=== PATIENT | female | born 1955 | race Caucasian/White ===

== ENCOUNTER 2020-04-27 10:10 | Emergency (ER) | payer MEDICARE, SELFPAY ==
--- NOTE | ~2020-04-27 | XR_ITS ---
EXAMINATION: XR abdomen/kub 1V DATE: 04/27/2020 11:16 INDICATION: Right flank pain. TECHNIQUE: A supine view of the abdomen on 2 radiographs was obtained. COMPARISON: CT abdomen and pelvis 10/28/2015 FINDINGS: There are no dilated loops of bowel. Surgical clips in the right upper quadrant are likely from cholecystectomy. Calcifications in the pelvis are likely phleboliths. IMPRESSION: 1. No visible urolithiasis. Reviewed, dictated and finalized at location B. TION ECONOMIST IMPRESSION: 1. No visible urolithiasis.
[2020-04-27 10:32] VITALS: BP 150/72; PULSE 70; RESP 16; TEMP 36.3; O2SAT 100
--- NOTE | 2020-04-27 10:53 | ED.GENADULT ---
HPI - General Adult General Chief complaint: Urogenital-Female Stated complaint: Back pain Time Seen by Provider: 04/27/20 10:54 Source: patient and RN notes reviewed Mode of arrival: ambulatory Limitations: no limitations History of Present Illness HPI narrative: 64-year-old female presents with concern for left flank pain. Reports pain started approximately 1 week ago. She denies visible hematuria, reports her urologist told her she always has slight hematuria. She denies urgency, dysuria. Reports baseline urinary frequency. Reports pain is intermittent, and not elicited by any certain activity or position. Reports at its worst the pain is a 7/10. Denies nausea and vomiting, fever, abdominal pain. Reports she took ibuprofen yesterday with no relief to flank pain. Patient also reports left shoulder pain without injury or trauma, she denies chest pain, cough, shortness of breath MD complaint: flank pain Related Data Home Medications Medication Instructions Recorded Confirmed atorvastatin 40 mg PO DAILY 04/27/20 04/27/20 estradiol 1 patch TRANSDERMAL WEEKLY 04/27/20 04/27/20 levothyroxine 112 mcg PO DAILY 04/27/20 04/27/20 omeprazole 20 mg PO DAILY 04/27/20 04/27/20 Allergies Allergy/AdvReac Type Severity Reaction Status Date / Time Penicillins Allergy Unknown Anxiety Verified 04/27/20 10:41 NITROFURANTOIN MACROCRYSTAL Allergy Unknown Rash Uncoded 04/27/20 10:41 Review of Systems Review of Systems: Narrative: CONSTITUTIONAL: Denies malaise, chills, sweats, or fever. CARDIOVASCULAR: Denies chest pain, palpitations, or edema. RESPIRATORY: Denies cough or dyspnea. GASTROINTESTINAL: Denies abdominal pain, nausea, vomiting, diarrhea, bloody, or mucous stools. GENITOURINARY: Denies dysuria urgency, or hematuria. Reports urine frequency at baseline SKIN: Denies bruising, redness MUSCULOSKELETAL: Reports flank pain, denies other back pain. Denies myalgia. Reports left shoulder pain NEUROLOGIC: Denies numbness, weakness, or headache. All systems reviewed & are unremarkable except as noted in HPI and below PMFSH Comments At time of signature, agree with nursing past medical, surgical, social and family history. There is no relevant family history pertinent to the presenting complaint Exam Narrative: Exam Narrative: GENERAL: Well-appearing, well-nourished, and in no acute distress. HEAD: Normocephalic, atraumatic. EYES: PERRLA and EOMI. NECK: Supple. No lymphadenopathy. CHEST: Clear to auscultation. No respiratory distress. HEART: Regular rate and rhythm. Distal pulses palpable and equal, cap refill <3 seconds ABDOMEN: Soft, nontender, nondistended, normal active bowel sounds, no palpable or pulsatile masses. No CVA tenderness MUSCULOSKELETAL: Normal range of motion and strength in all extremities; 5/5 strength with hip flexion and extension, dorsiflexion and extension, knee flexion and extension, plantar flexion and extension. Normal sensation in dermatomal distributions with sensitivity to light touch and pain. No midline back tenderness to palpation. No paraspinal tenderness. Transfers from lying to sitting to standing. SKIN: Warm, dry, no rash. No ecchymosis, erythema, open wounds to back. NEURO: No focal deficits. Alert and oriented x3. Reflexes intact. Normal gait. PSYCH: Normal mood and affect Course Course Emergency Course: Instructed patient's primary care provider regarding facilitating reevaluation patient's symptoms. Patient is aware of diagnosis, understands and agrees to treatment plan. Anticipatory guidance given. Patient agrees to follow-up as directed and is aware of reasons to seek care at the emergency department. Portions of this record may have been created with voice recognition software Vital Signs Vital signs: Vital Signs Temperature 97.3 F L 04/27/20 10:32 Pulse Rate 70 04/27/20 10:32 Respiratory Rate 16 04/27/20 10:32 Blood Pressure 150/72 H 04/27/20 10:32 Pulse Oximetry 100 04/27
--- NOTE | 2020-04-27 11:03 | ECG_ITS ---
Measurements Intervals [place] Rate: 63 P: 39 IN: 224 QRS: 52 QRSD: 89 T: 35 QT: 389 QTc: 398 Interpretive Statements SINUS RHYTHM WITH FIRST DEGREE AV BLOCK VENTRICULAR PREMATURE COMPLEX BASELINE ARTIFACT- V5 ABNORMAL ECG Electronically Signed On 04-27-2020 12:19:36 COMM[employer]ITY [employer]ICE [employer]ATION DIRECTOR by Nam Jenkins D.O.
--- NOTE | 2020-04-27 11:17 | PC.NURSE ---
NO URINE CULTURE PER PROVIDER.
== END 2020-04-27 12:05 | disposition home or self-care (01) ==
PROVIDERS: Emergency Provider Nurse Practitioner; PCP Family Medicine
DX: R10.9 Unspecified abdominal pain (principal); E78.00 Pure hypercholesterolemia, unspecified; K21.9 Gastro-esophageal reflux disease without esophagitis; E03.9 Hypothyroidism, unspecified; I44.0 Atrioventricular block, first degree
CPT/HCPCS: 74018; 81003; 93005; 99203; G0463

== ENCOUNTER 2020-10-14 11:57 | Emergency (ER) | payer MEDICARE, SELFPAY ==
--- NOTE | ~2020-10-14 | XR_ITS ---
EXAMINATION: XR ankle LT min 3V DATE: 10/14/2020 12:35 INDICATION: Left ankle pain and swelling. Injury. TECHNIQUE: 4 views of left ankle were obtained. COMPARISON: None. FINDINGS: Bone alignment is normal. There are small fragments of ossification distal to medial and la teral malleoli. There is mild osteoarthritis of talonavicular joint. There are enthesophytes at the p osterior and plantar aspects of calcaneal tuberosity. IMPRESSION: 1. Small fragments of ossification distal to medial and lateral malleoli, most likely chronic. Acute avulsion fracture cannot be excluded. Reviewed, dictated and finalized at location B.
--- NOTE | ~2020-10-14 | XR_ITS ---
EXAMINATION: XR hand LT min 3V DATE: 10/14/2020 12:35 INDICATION: Left hand injury and pain and swelling. TECHNIQUE: 3 views of left hand were obtained. COMPARISON: None. FINDINGS: Bone alignment is normal. No fracture. There is mild osteoarthritis of triscaphe joint, fir st carpometacarpal joint, first metacarpophalangeal joint, and some of the interphalangeal joints. IMPRESSION: 1. Mild polyarticular osteoarthritis. Reviewed, dictated and finalized at location B.
[2020-10-14 12:08] VITALS: BP 150/73; PULSE 65; RESP 20; TEMP 37.2; O2SAT 99
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
== END 2020-10-14 13:34 | disposition home or self-care (01) ==
PROVIDERS: Emergency Provider Nurse Practitioner Family; PCP Family Medicine
DX: S82.892A Other fracture of left lower leg, initial encounter for closed fracture (principal); M79.642 Pain in left hand; S80.212A Abrasion, left knee, initial encounter; W18.09XA Striking against other object with subsequent fall, initial encounter; E78.00 Pure hypercholesterolemia, unspecified; K21.9 Gastro-esophageal reflux disease without esophagitis; E03.9 Hypothyroidism, unspecified
CPT/HCPCS: 29515; 73130; 73610; 99214; G0463

== ENCOUNTER 2021-09-24 19:25 | Emergency (ER) | payer MEDICARE, SELFPAY ==
[2021-09-24 19:35] VITALS: BP 146/64; PULSE 71; RESP 16; TEMP 36.8; O2SAT 100
--- NOTE | 2021-09-24 19:55 | ED.GENADULT ---
HPI - General Adult General Chief complaint: Urogenital-Female Stated complaint: bladder infection Source: patient Mode of arrival: ambulatory Limitations: no limitations History of Present Illness HPI narrative: Patient presents for evaluation of foul smell from the vaginal region for the last 4 days. She states that today she developed some suprapubic pain, left-sided low back pain and epigastric pain. She states the pain is a dull ache she rates at 4 out of 10 in severity. She has a history of kidney stones but this does not feel similar. She states a surgeon in [facility] performed hysterectomy, bladder sling and rectal prolapse repair back in 2012. She reports some urinary frequency as of today but denies dysuria, hesitancy, hematuria or urgency. She believes she may have some vaginal discharge although she is not certain. She is not sexually active. No fever, chills, nausea, vomiting. She states that in the past she has experienced vaginal bleeding with speculum exams so her OBGYN advised that she only have pelvic exams performed by her OBGYN specifically. Related Data Home Medications Medication Instructions Recorded Confirmed atorvastatin 40 mg PO DAILY 04/27/20 09/24/21 estradiol 1 patch TRANSDERMAL WEEKLY 04/27/20 09/24/21 levothyroxine 112 mcg PO DAILY 04/27/20 09/24/21 omeprazole 20 mg PO DAILY 04/27/20 09/24/21 Allergies Allergy/AdvReac Type Severity Reaction Status Date / Time Penicillins Allergy Unknown Anxiety Verified 09/24/21 19:28 NITROFURANTOIN MACROCRYSTAL Allergy Unknown Rash Uncoded 04/27/20 10:41 Review of Systems Review of Systems: CONSTITUTIONAL: Denies fever, chills, or sweats. EYES: Denies visual changes, redness, or discharge. ENT: Denies rhinorrhea, congestion, sore throat, or otalgia. CARDIOVASCULAR: Denies chest pain, palpitations, or edema. RESPIRATORY: Denies cough or dyspnea. GASTROINTESTINAL: Reports abdominal pain. Denies nausea, vomiting, or diarrhea GENITOURINARY: Reports vaginal odor, questionable discharge. Reports urinary frequency. Denies hesitancy, dysuria and hematuria SKIN: Denies rash or itching. MUSCULOSKELETAL: Reports left lower back pain. Denies joint pain, or myalgia. NEUROLOGIC: Denies headache, numbness, dizziness, or weakness. PSYCHIATRIC: Denies anxiety or depression. [facility] Past Medical History Medical History (Updated 09/24/21 @ 20:09 by Ladarius Hernandez [facility], ) Cardiac arrhythmia GERD (gastroesophageal reflux disease) Hyperlipidemia Hypothyroid Rectal prolapse Surgical History Surgical History H/O bladder repair surgery H/O: hysterectomy Family History Family History Mother Family history non-contributory Social History Social History Smoking status: Never smoker Alcohol intake: never Substance use: never Living arrangements: with family Gender identity (if verbalized by the patient): Female Sexual Orientation (if Verbalized by the Patient): Straight or Heterosexual Spiritual care concerns: No Exam Narrative: GENERAL: Well-appearing, well-nourished, and in no acute distress. HEAD: Normocephalic, atraumatic. EYES: PERRLA and EOMI. ENT: Nares clear, no rhinorrhea or epistaxis. Mucous membranes moist. Oropharynx without tonsillar hypertrophy exudate or other lesions. Bilateral TMs pearly de paz nonbulging NECK: Supple. No adenopathy or masses. No carotid bruits or JVD CHEST: Clear to auscultation. No respiratory distress. No wheezes rales or rhonchi HEART: Regular rate and rhythm. No murmur heard. Normal peripheral pulses. ABDOMEN: Soft, nontender, nondistended, normal active bowel sounds. EXTREMITIES: Normal range of motion. No edema. BACK: No CVA tenderness GENITAL: No external genital lesions. Small amount of clear vaginal discharge. Declined
== END 2021-09-24 20:07 | disposition home or self-care (01) ==
PROVIDERS: Emergency Provider Nurse Practitioner
DX: N76.0 Acute vaginitis (principal); R31.29 Other microscopic hematuria; R10.84 Generalized abdominal pain; E03.9 Hypothyroidism, unspecified; E78.5 Hyperlipidemia, unspecified
CPT/HCPCS: 81003; 87070; 99213; G0463

== ENCOUNTER 2025-02-17 12:24 | Outpatient (CLI) | payer MEDICARE, SELFPAY ==
--- OUTSIDE RECORDS SUMMARY | 2025-02-17 12:27 | XMS_ITS | Clinical Summary ---
Author Organization [facility] Address [address] [place] [address] Phone Care Team Providers Care Retoucher Photoengraving Name Role Phone Roberto Herzog MD Primary Care Provider [phone] Nora Ocampo MD Unavailable Allergies Active Allergy Reactions Criticality Noted Date Comments Nitrofurantoin Macrocrystal Rash 09/22/19 19 Penicillins Shortness of Breath 09/21/2018 Medications diphenhydrAMINE HCl (BENADRYL PO) Take by mouth. Activ e Cetirizine HCl (ZYRTEC PO) Take by mouth. Act liz OMEPRAZOLE PO Take by mouth. A ctive LEVOTHYROXINE SODIUM PO Take by mouth. Activ e ATORVASTATIN CALCIUM PO Take by mouth. Acti ve estradiol (VIVELLE-DOT) 0.0375 MG/24HR PATCH BIWEEKLY 0.0375 mg by Transdermal route twice a week. 3 Active citalopram (CeleXA) 10 MG Tablet Take 10 mg by mouth daily. Active Glucose Blood (OneTouch Verio) Strip Test blood glucose 1x daily. E16.2 100 Each 3 4 Active Blood Glucose Monitoring Suppl (OneTouch Verio) w/Device KitIndications: Hypoglycemia,Ty pe 2 diabetes mellitus with other circulatory complication, without long-term current use of insulin Use to check blood glucose 2x daily. 1 Kit 4 Active Glucose Blood (OneTouch Ultra) StripIndication s:Hypoglycemia, Type 2 diabetes mellitus with other circulatory complication, without long-term current use of insulin Test blood glucose 1x daily, E11.59, non-insulin dependent 100 Each 3 4 Active doxycycline hyclate (VIBRAMYCIN) 100 MG Capsule Take 100 mg by mouth. 5 Active Tirzepatide (Mounjaro) 2.5 MG/0.5ML Solution Auto-injector 2.5 mg by Subcutaneous route once a week. 2 mL 5 Active Glucose Blood (Contour Plus Test) StripIndication s:Type 2 diabetes mellitus with other circulatory complication, without long-term current use of insulin Test blood glucose 1x daily. E11.59, non-insulin dependent 100 Strip 3 5 Active Blood Glucose Monitoring Suppl (Accu-Chek Guide) w/Device Kit 1 Kit by Does not apply route daily. Test blood glucose 1x daily. E16.2, non-insulin dependent 1 Kit 5 Active Glucose Blood (Accu-Chek Guide Test) Strip Test blood glucose 1x daily. E16.2, non-insulin dependent 100 Strip 3 5 Active Accu-Chek FastClix Lancets Misc 1 Lancet . by Does not apply route daily. Test blood glucose daily E16.2, non-insulin dependent 100 Lancet . 3 5 Active Encounters Date Type Department Care Team Description 11/26/2024 Refill [facility] - Endocrinology [facility] ([facility]3] [address] [place] [address] Nora Ocampo MD Medication Refill from Last 3 Months Social History Tobacco Use Types Packs/Day Years Used Date Smoking Tobacco: Never Smokeless Tobacco: Never Tobacco Cessation:Counseling Given: Not Answered Comments No Sex and Gender Information Value Date Recorded Sex Assigned at Not on file Legal Sex Female 11:51 PM CDT Gender Identity Not on file Sexual Orientation Not on file Last Filed Vital Signs Vital Sign Reading Time Taken Comments Blood Pressure 124/76 11/04/2024 2:51 PM CDT Pulse 65 11/04/2024 2:51 PM CDT Temperature 36.6 C (97.9 F) 11/04/2024 2:51 PM CDT Respiratory Rate 22 11/04/2024 2:51 PM CDT Oxygen Saturation 98% 11/04/2024 2:51 PM CDT Inhaled Oxygen Concentration - - Weight 102.7 kg (226 lb 6.4 oz) 11/04/2024 2:51 PM CDT Height 162.6 cm (5' 4) 11/04/2024 2:51 PM CDT Body Mass Index 38.86 11/04/2024 2:51 PM CDT Plan of Treatment Health Maintenance Due Date Last Done Comments Hepatitis C Virus (HCV) Screening 1955 Pneumococcal Immunization (50+ years) (1 of 2 - PCV) 1972 Cologuard 1998 Immunochemical Fecal Occult Blood 1998 Zoster Immunization (1 of 2) 11/01/2003 Medicare Initial AWV G0438 10/20/2019 Influenza Immunization (#1) 2025 SARS-COV-2 Immunization (3 - season) 2025 10/26/2020, 10/05/2020 DEXA Bone Density 03/15/2025 03/15/2023, 02/01/2021 Mammogram 08/09/2025 08/09/2024, 01/0 07/2023, 03/15/2023, Additional history exists Respiratory Syncytial Virus (RSV) Immunization (Adult) (1 - 1-dose 75+ series) 2028 Colonoscopy 03/29/2032 03/29/2022 Colorectal Cancer Screening 03/29/2032 DTaP/Tdap/Td Immunization Discontinued 09/14/2023, 02/2017 TdaP Immunization Completed 09/14/2023, 08/28/2016 Hepatitis B Immunization Aged Out No longer eligible based on patient's age to complete this topic Human Papillomavirus (HPV) Immunization Aged Out No longer eligible based on patient's age to complete this topic Meningococcal Immunization (ACWY) Aged Out No longer eligible based on patient's age to complete this topic Rotavirus Immunization Aged Out No lo nger eligible based on patient's age to complete this topic Insurance MEDICARE [employer] Care Teams Retoucher Photoengraving Relationship Specialty Start Date End Date Roberto Herzog MD [address] [place] [address] PCP - General Internal Medicine 09/21/18 Nora Ocampo MD [address] [id number] Consulting Physician Endocrinology 09/25/23
--- OUTSIDE RECORDS SUMMARY | 2025-02-17 12:27 | XMS_ITS | Encounter Summary ---
Author Organization [facility] Address [address] [place] [address] Phone Care Team Providers Care Ultrasound Specialist Name Role Phone Roberto Herzog MD Primary Care Provider [phone] Nora Ocampo MD Unavailable Reason for Visit * Reason Comments Medication Refill Encounter Details Date Type Department Care Team (Late st Contact Info) Description 11/12/2023 Refill [facility] - [place] [address] [place] [address] Nora Ocampo MD [address] [address] Medication Refill Social History Tobacco Use Types Packs/Day Years Used Date Smoking Tobacco: Never Smokeless Tobacco: Never Comments No Sex and Gender Information Value Date Recorded Sex Assigned at Not on file Legal Sex Female 11:51 PM CDT Gender Identity Not on file Sexual Orientation Not on file documented as of this encounter Miscellaneous Notes * Telephone Encounter - Niecy Sims RN - 11/12/2023 8:40 AM CDT Medication(s) refilled and signed per [facility] Chronic Medication Refill Standing Order for Pediatric and Adult Patients. documented in this encounter Plan of Treatment Not on file documented as of this encounter Visit Diagnoses Diagnosis Hypoglycemia Hypoglycemia, unspecified Type 2 diabetes mellitus with other circulatory complication, without long-term current use of insulin documented in this encounter Care Teams Ultrasound Specialist Relationship Specialty Start Date End Date Roberto Herzog MD [address] [place] [address] PCP - General Internal Medicine 09/21/18 Nora Ocampo MD [address] [phone] Consulting Physician Endocrinology 09/25/23 documented as of this encounter
--- OUTSIDE RECORDS SUMMARY | 2025-02-17 12:27 | XMS_ITS | Clinical Summary ---
Author Organization [facility] Address [address] [place] [address] Care Team Providers Care It Auditor Name Role Phone Star Villalobos MD Primary Care Provider Source Comments [facility],non-owned Affiliates and Associated Physician Practices is amultiple site organization consisting of ambulatory clinics and hospital sitesin [place], [place], [place] and [place]. This disclosure is being madepursuant to the Care Everywhere program and may not contain all information available regarding this patient. Last updated 18.[facility] Allergies Active Allergy Reactions Criticality Noted Date Comments Erythromycin GI Discomfort,Other 02/10/2009 GI Nitrofurantoin Rash Medium 01/01/2018 Reaction: Rash Penicillins Anaphylaxis,Shortnes s of Breath High 02/10/2009 Medications * Be aware that medications may not be up to date on this document. Alwaysverify current medications with the patient. levothyroxine (SYNTHROID) 112 MCG tablet TAKE ONE TABLET BY MOUTH ONCE DAILY DIRECTED 7 Active atorvastatin (LIPITOR) 40 MG tablet 6 Active mirabegron ER 24hr (MYRBETRIQ) 25 MG tablet Take 1 tablet by mouth once daily 28 tablet 8 Active PROCTOZONE-HC 2.5 % cream INSERT CREAM INTO THE RECTUM NIGHTLY NEEDED FOR HEMORRHOIDS 30 g 0 Active nystatin/triam cinolone (MYCOLOG) 452586-7.1 UNIT/GM-% ointmentIndica tions:Lichen simplex chronicus Apply to external vulvar tissues twice daily for two weeks, then daily for two weeks. 60 g SEE NOTE 60 g 2 1 Active lancets as needed 1 Active Alcohol Swabs (ALCOHOL WIPES) 70 % as needed 1 Active Blood Glucose Monitoring Suppl (GLUCOCOM BLOOD GLUCOSE MONITOR) MAHSA as needed 1 Active blood glucose (PRECISION QID TEST) test strip as needed 1 Active vitamin D3 (CHOLECALCIFER OL) (10 MCG) 400 UNIT tablet Take 1 (one) tablet by mouth once daily Active fluticasone propionate (FLONASE) 50 MCG/ACT nasal spray as needed 2 Active hydrocortisone (HYTONE) 2.5 % cream as needed 1 Active senna-docusate (SENOKOT-S) 8.6-50 MG tablet Take 1 (one) tablet to 2 (two) tablets by mouth once daily as needed 2 Active nystatin (MYCOSTATIN) 855258 UNIT/GM ointmentIndica tions:Skin yeast infection External vulvar tissues twice daily as needed 30 g 1 2 Active nystatin (Mycostatin) 009376 UNIT/GM ointment Apply to affected area 2 times daily 30 g 3 Active acarbose (Precose) 25 MG tablet Take 1 (one) tablet by mouth 3 times daily with meals 3 Active aspirin EC (Ecotrin) 81 MG tablet Take 1 (one) tablet by mouth once daily 30 tablet 11 3 Active Azelastine HCl 137 MCG/SPRAY SOLN USE 1 SPRAY(S) IN EACH NOSTRIL TWICE DAILY DIRECTED 2 Active citalopram (CeleXA) 10 MG tablet Take 1 (one) tablet by mouth once daily 3 Active omeprazole (PriLOSEC) 20 MG capsule Take 1 (one) capsule by mouth 2 times daily 3 Active fezolinetant (Veozah) 45 MG tablet Take 1 (one) tablet by mouth once daily 7 tablet 4 Active ibuprofen (Motrin) 800 MG tablet Take 1 (one) tablet by mouth 3 times daily as needed For pain. 5 Active methocarbamol (Robaxin) 500 MG tablet Take 1 (one) tablet by mouth 3 times daily as needed FOR MUSCLE SPASM 5 Active ondansetron, disintegrating , (Zofran ODT) 4 MG tablet Take 1 (one) tablet by mouth every 8 hours as needed 5 Active predniSONE (Deltasone) 20 MG tablet 5 Active tirzepatide (Mounjaro) 2.5 MG/0.5ML injection Inject 2.5 (two and one-half) mg subcutaneously every 7 days 5 Active triamcinolone acetonide (Kenalog) 0.1 % ointment APPLY OINTMENT TOPICALLY TWICE DAILY 4 Active triamcinolone acetonide (Kenalog) 0.1 % cream 5 Active estradiol (Vivelle-Dot) 0.1 MG/24HR patch Apply 1 (one) patch to skin Two times a week 24 patch 4 5 Active Active Problems Problem Noted Date Diagnosed Date Reactive hypoglycemia 04/27/2021 Overview (08/23/2021): Last Assessment & Plan: - recurring condition, more frequent - having issues after meals with weakness, dizziness and low BG numbers in 60s - referred to nutrition therapy/counseling - established with Endocrinology - no hx of diabetes, is pre-diabetic which is improved - not on any medications - most recent A1c as shown below Lab Results Component Value Date HGBA1C 5.7 07/11/2021 Type 2 diabetes mellitus wit h hypoglycemia without coma, without long-term current use of insulin 12/02/2020 Overview (08/23/2021): Last Assessment & Plan: This is a chronic condition which is at goal. Personally reviewed A1c -5.7, at goal less than 7% Medication- no medications at this times. Monitor blood sugar 3times a week and for episodes of hypoglycemia. She has seen the dietitian and reports improvement with the addition of protein shakes. Reviewed protein sources. Encouraged annual eye exam. last dilated eye exam was Monofilament foot exam completed, protective senses intact, loss of protective senses. Urine microalbumin/creatinine ratio - <30 currently not on edd/arb , at goal <30 Personally reviewed labs: BUN-10, creatinine- 0.75 GFR- 82 Kidney function- normal B/P today- 130/64, currently not on EDD/ARB Goal blood pressure is <140/90 and as close to 120/80 as possible. Personally reviewed LDL -68, currently on atorvastatin. At Goal of less than 70 No history of macrovascular disease - CVA, [place]. Encouraged to eat protein source at each meals. 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 Elizondo from time to time - currently on atorvastatin 40 mg daily - most recent LDL as shown below - recommend that we be more aggressive with LDL goal, reports that she was off her medication while she was on steroids - plan to recheck in 3-4 months Lab Results Component Value Date LDLCALC 169 (H) 09/22/2020 The 10-year ASCVD risk score (Street ARNEL Jr., et al., 2013) is: 9.3% Values used to calculate the score: Age: 65 years Sex: Female Is Non- : No Diabetic: No Tobacco smoker: No Systolic Blood Pressure: 146 mmHg Is BP treated: No HDL Cholesterol: 67 mg/dL Total Cholesterol: 265 mg/dL GERD (gastroesophageal reflux disease) 0 Overview (03/22/2021): Last Assessment & Plan: - follows with Gastroenterology - currently on Omeprazole 20 mg daily for symptom control - increase to Omperazole 20 mg BID for now given abdominal discomfort Essential hypertension 11/25/2019 Overview (03/22/2021): Last Assessment & Plan: - doing well at this time - currently not on medications - never been on medications for this before - continue to monitor with lifestyle control - if she continues to do so well, will remove this problem list from active problems - has risk factors - obesity Deviated nasal septum 07/27/2016 Hay fever 07/27/2016 Hypertrophy of nasal turbinates 07/27/2016 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 Dysphonia 03/29/2016 Hyperlipidemia 02/19/2016 Overview (02/25/2018): Overview: Hyperlipidemia, unspecified hyperlipidemia type Lumbar radiculopathy 02/09/2015 Overview (02/25/2018): Overview: Lumbar radiculopathy Sensorineural hearing loss (SNHL) 09/15/2013 Hypothyroidism 05/21/2006 Overview (02/25/2018): Overview: Hypothyroidism, unspecified type Resolved Problems Problem Noted Date Diagnosed Date Resolved Date Lichen simplex chronicus 09/21/202009/2021 Common cold 08/31/2016 03/22/2021 Overview (02/25/2018): Overview: Acute nasopharyngitis Hemoptysis 07/31/2016 08/23/2021 Overview (02/25/2018): Overview: Hemoptysis Sinusitis 04/06/2016 03/25/2018 Vocal cord dysfunction 03/29/201608/23 Sudden hearing loss 09/18/2013 03/22/20 21 Lichen sclerosus 06/06/2010 09/21/2020 Symptomatic menopausal or fe male climacteric states 06/06/2010 08/23/2021 Encounters Date Type Department Care Team Description 01/01/2025 1:45 PM CDT Office Visit [facility] - MEDICAL OFFICE ADMINISTRATOR [address] [place] [address] Adi Vaughn MD Menopausal symptoms (Primary Dx); Overactive bladder 01/01/2025 Travel from Last 3 Months Immunizations Immunization Administration Dates Next Due TDAP (7yrs+) 08/28/2016 Family History Medical History Relation Name Comments CAD (Coronary Artery Disease) Mother CVA Mother Cancer - Breast Mother Hypertension Mother Relation Name Status Comments Mother Social History Tobacco Use Types Packs/Day Years Used Date Smoking Tobacco: Never Smokeless Tobacco: Never Tobacco Cessation:Counseling Given: Not Answered Alcohol Use Standard Drinks/Week Comments No 0 (1 standard drink = 0.6 oz pur e alcohol) AUDIT-C Answer Date Recorded Q1: How often do you have a drink containing alc ohol? 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 Gender Identity Not on file Sexual Orientation Not on file Last Filed Vital Signs Vital Sign Reading Time Taken Comments Blood Pressure 144/98 01/01/2025 2:08 PM CDT Pulse 70 03/08/2023 3:45 PM CDT Temperature 36.7 C (98 F) 01/01/2025 2:08 PM CDT Respiratory Rate 18 03/08/2023 3:45 PM CDT Oxygen Saturation 95% 03/08/2023 3:45 PM CDT Inhaled Oxygen Concentration - - Weight 102.2 kg (225 lb 3.2 oz) 01/01/2025 2:08 PM CDT Height 160 cm (5' 3) 01/01/2025 2:08 PM CDT Body Mass Index 39.89 01/01/2025 2:08 PM CDT Plan of Treatment Upcoming Encounters Date Type Department Care Team (Late st Contact Info) Description 01/07/2026 1:45 PM CDT Office Visit [facility] - MEDICAL OFFICE ADMINISTRATOR [address] [place] [address] Adi Vaughn MD [address] [address] Health Maintenance Due Date Last Done Comments COLOGUARD (AGES 45-75) - COLON CA SCREENING 1953 CT COLONOGRAPHY - COLON CA SCREENING 1955 FIT - COLON CA SCREENING 1955 FLEX SIG - COLON CA SCREENING 1955 MEDICARE AWV 12 MONTHS 1953 HEPATITIS C SCREENING 10/27/1971 PNEUMOCOCCAL VACCINE 50+ (1 of 2 - PCV) 1972 ZOSTER VACCINE (1 of 2) 11/01/2003 DIABETES RETINOPATHY SCREENING 08/23/2021 DIABETES-FOOT EXAM WITH MONOFILAMENT 08/23/2021 DIABETES - URINE PROTEIN SCREENING 05/21/2024 01/30/2023 COVID-19 VACCINE (3 - season) 2025 10/26/2020, 10/05/2020 INFLUENZA VACCINE (#1) 2025 DIABETES-HGB A1C 05/06/2025 11/04/2024, 09/2023, 02/20/2023, Additional history exists DIABETES-SERUM CREATININE 11/04/20252024, 01/27/2023, 01/27/2023, Additional history exists MAMMOGRAM 08/09/2026 08/09/2024, 07/20, 08/09/2024, Additional history exists DTAP/TDAP/TD VACCINES (2 - Td or Tdap) 08/28/2026 08/28/2016 Respiratory Syncytial Virus (RSV) Vaccine Pt: or over 60 yrs (1 - 1-dose 75+ series) 2028 COLON MONITORING 03/29/2032 03/29/2022 COLONOSCOPY - COLON CA SCREENING 03/29/2032 03/29/2022 Colorectal Cancer Screening 03/29/2032 BONE DENSITY TESTING Completed 03/15/2023, 02/02/20 21 DEPRESSION SCREENING Completed 01/01/2025, 01/03/20 24 HEPATITIS B VACCINE Aged Out No longe r eligible based on patient's age to complete this topic HIB VACCINE Aged Out No longer eligi ble based on patient's age to complete this topic HPV VACCINE Aged Out No longer eligi ble based on patient's age to complete this topic MENINGOCOCCAL (Group B) VACCINE SHARED DECISION-MAKING Aged Out No longer eligible based on patient's age to complete this topic MENINGOCOCCAL GROUPS A/C/Y/W VACCINE Aged Out No longer eligible based on patient's age to complete this topic Procedures Procedure Name Priority Date/Time Associated Diagnosis Comments MAMMOGRAM Routine 08/09/2024 11:22 AM CDT from Last 3 Months or Most Recently Relevant to Health Maintenance Results * MAMMOGRAM (08/09/2024 11:22 AM CDT) Anatomical Region Laterality Modality Other us Historical Provider SCANNING ONLY Final Res ult from Last 3 Months or Most Recently Relevant to Health Maintenance Insurance MEDICARE MEDICARE AETNA Care Teams It Auditor Relationship Specialty Start Date End Date Star Villalobos MD PCP - General 03/22/21
--- OUTSIDE RECORDS SUMMARY | 2025-02-17 12:27 | XMS_ITS | Encounter Summary ---
Author Organization [facility] Address [address] [place] [address] Care Team Providers Care Farmer General Name Role Phone Star Villalobos MD Primary Care Provider Karina Ritter DO Unavailable [phone] Golden Michelle MD Unavailable Humberto Mueller MD Unavailable [phone] Josephine Santos NP Unavailable [phone] Star Villalobos MD Primary Care Provider Trey Rosenberg MD Unavailable [phone] Paulette Zacarias MA Unavailable [phone] Juanis Turcios CMA Unavailable [phone] Star Villalobos MD Primary Care Provider Amado Devi DPM Unavailable [phone] Verna Tamayo MA Unavailable Unavailable Adi Vaughn MD Unavailable [phone] Alivia Thomas MA Unavailable Nora Ocampo MD Unavailable Star Villalobos MD Primary Care Provider Marisabel Matamoros MD Unavailable [phone] Michelle Arce MA Unavailable [phone] Leatha Ramirez RN Unavailable [phone] Encounter Details Date Type Department Care Team (Late st Contact Info) Description 05/18/2021 Documentation [facility] Nutrition and Diabetic Education [address] [place] [address] Daisha Cornelius, RN Social History Tobacco Use Types Packs/Day Years Used Date Smoking Tobacco: Never Smokeless Tobacco: Never Alcohol Use Standard Drinks/Week Comments No 0 (1 standard drink = 0.6 oz pur e alcohol) PHQ-2 Answer Date Recorded PHQ-2 Total Score (If total score is 3 or more points, staff should administer the PHQ-9) 0 04/21/2021 Comments No Sex and Gender Information Value Date Recorded Sex Assigned at Not on file 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 Gender Identity Female 11/05/2022 9:12 PM CDT Sexual Orientation Straight 11/05/2022 9: 12 PM CDT documented as of this encounter Plan of Treatment Not on file documented as of this encounter Visit Diagnoses Not on filedocumented in this encounter Additional Health Concerns Infection Onset Date Last Indicated Resolved Time COVID: Suspected 06/06/2021 06/06/2021 06/06/2021 5:06 PM AUTO TRANSMISSION MECHANIC COVID: Suspected 06/16/2021 06/16/2021 06/16/2021 3:13 PM AUTO TRANSMISSION MECHANIC COVID: Suspected 11/12/2021 11/12/2021 11/12/2021 2:09 PM CDT COVID: Suspected 11/12/2021 11/12/2021 11/12/2021 7:26 PM CDT COVID: Suspected 12/21/2021 12/21/2021 12/21/2021 11:28 AM CDT COVID: Suspected 03/08/2022 03/08/2022 03/08/2022 6:56 PM CDT COVID: Suspected 03/27/2022 03/27/2022 03/27/2022 12:39 PM AUTO TRANSMISSION MECHANIC COVID: Suspected 04/07/2022 04/07/2022 04/07/2022 12:03 PM AUTO TRANSMISSION MECHANIC COVID: Suspected 05/10/2022 05/10/2022 05/10/2022 1:25 PM AUTO TRANSMISSION MECHANIC COVID: Suspected 05/17/2022 05/17/2022 05/17/2022 11:24 AM AUTO TRANSMISSION MECHANIC COVID: Suspected 06/25/2022 06/25/2022 06/25/2022 6:33 PM AUTO TRANSMISSION MECHANIC COVID: Suspected 08/20/2022 08/20/2022 08/20/2022 12:20 PM CDT COVID: Suspected 09/10/2022 09/10/2022 09/10/2022 12:44 PM CDT COVID: Suspected 09/17/2022 09/17/2022 09/17/2022 2:02 PM CDT COVID: Suspected 01/27/2023 01/27/2023 01/27/2023 5:39 PM CDT COVID: Suspected 05/07/2023 05/07/2023 05/07/2023 12:48 PM AUTO TRANSMISSION MECHANIC COVID: Suspected 05/15/2023 05/15/2023 05/15/2023 12:43 PM AUTO TRANSMISSION MECHANIC COVID: Suspected 02/05/2024 02/05/2024 02/05/2024 5:47 PM CDT COVID: Suspected 03/07/2024 03/07/2024 03/08/2024 3:05 AM CDT COVID: Suspected 05/13/2024 05/13/2024 05/13/2024 3:11 PM AUTO TRANSMISSION MECHANIC COVID: Suspected 05/16/2024 05/16/2024 05/16/2024 3:44 PM AUTO TRANSMISSION MECHANIC COVID19 05/16/2024 05/16/2024 05/26/2024 3:07 AM AUTO TRANSMISSION MECHANIC COVID: Recovered Comment:Added based on recent COVID infection. 05/26/2024 05/27/2024 08/24/2024 3:05 AM C DT documented as of this encounter Care Teams Farmer General Relationship Specialty Start Date End Date Star Villalobos MD PCP - General Family Medicine 11/11/20 08/28/22 Star Villalobos MD PCP - General Family Medicine 08/29/22 02/19/23 Star Villalobos MD [address] [place] [address] [address] [place] [address] PCP - General Family Medicine 02/20/23 10/26/24 Star Villalobos MD [address] [place] [address] [facility] [address] [place] [address] PCP - General Family Medicine 10/27/24 Karina Ritter DO [address] [place] [address] [address] [place], [place] [address] Consulting Physician Otolaryngology 07/16/22 Golden Michelle MD [address] [place] [address] [address] [place] [address] Consulting Physician Pulmonary Disease 07/16/22 Humberto Mueller MD [address] [place] [address] [address] [place] [address] Consulting Physician Gastroenterology 07/16/22 Josephine Santos, MÓNICA [address] [place] [address] [address] [place] [address] Nurse Practitioner Endocrinology Diabetes & Metabolism 07/16/22 Trey Rosenberg MD [address] [place] [address] [address] [place] [address] Consulting Physician Endocrinology Diabetes & Metabolism 10/12/22 Paulette Zacarias MA [address] [place] [address] [employer] [facility] Institutional Commodity Analyst 11/27/22 11/27/22 Juanis Turcios CMA [address] [place] [address] [address] [place] [address] ACO Care Institutional Commodity Analyst 01/29/23 01/29/23 Amado Devi DPM [address] [place] [address] Consulting Physician Orthotics 02/20/23 Verna Tamayo MA [address] [place] [address] [address] [place] [address] ACO Care Institutional Commodity Analyst 09/17/23 09/17/23 Adi Vaughn MD [address] [facility] [address] [place] [address] Referring Physician Gynecology 12/03/23 Alivia Thomas MA [address] [place] [address] [address] [place] [address] ACO Care Institutional Commodity Analyst 06/19/24 06/19/24 Nora Ocampo MD [address] [facility] [address] [place] [address] Referring Physician General Surgery 10/21/24 Marisabel Matamoros MD [address] [place] [address] Referring Physician Dermatology 12/02/24 Michelle Arce MA [address] [place] [address] [address] [place] [address] ACO Care Institutional Commodity Analyst 12/04/24 12/04/24 Leatha Ramirez, RN [address] [facility] [facility] [address] [place] [address] Acute Care Certified Nursing Assistant 01/29/25 [facility] 02/20/23 documented as of this encounter
--- OUTSIDE RECORDS SUMMARY | 2025-02-17 12:27 | XMS_ITS | Clinical Summary ---
Author Organization [facility] Address [address] [place] [address] Care Team Providers Care Meter Reading Clerk Name Role Phone Karina Ritter Unavailable [phone] Golden Michelle MD Unavailable Humberto Mueller MD Unavailable [phone] Josephine Santos NP Unavailable [phone] Trey Rosenberg MD Unavailable [phone] Amado Devi DPM Unavailable [phone] Adi Vaughn MD Unavailable [phone] Nora Ocampo MD Unavailable Star Villalobos MD Primary Care Provider Marisabel Matamoros MD Unavailable [phone] Leatha Ramirez RN Unavailable Allergies Active Allergy Reactions Criticality Noted Date Comments Nitrofurantoin Other (See comments),Rash Medium 01/01/2018 Reaction: Rash, , , , , , , , Reaction: Rash, , , , , , , , Penicillins Rash,Anaphylaxis,Stephanie rtne ss of breath High 02/10/2009 Medications estradioL (VIVELLE-DOT) 0.1 mg/24 hr APPLY 1 PATCH TOPICALLY TO SKIN TWICE A WEEK 01/28/20 21 Active alcohol swabs pads, medicatedIndicati ons:Prediabetes Test daily before all meals/snacks and once before bedtime. 100 each 3 02/08/20 21 Active blood-glucose meter miscIndications:L ightheadedness Use twice (2 times) daily before breakfast and at bedtime. 1 each 02/16/20 21 Active fluticasone propionate (FLONASE) 50 mcg/actuation nasal spray 2 sprays 2 (two) times a day as needed 10/31/19 23 Active azelastine (ASTELIN) 137 mcg (0.1 %) nasal sprayIndications: Chronic non-seasonal allergic rhinitis Administer 1 spray into each nostril 2 (two) times a day Use in each nostril as directed 30 mL 11 03/23/20 23 Active Additional Information Patient taking differently:1 spray each nostril2 times daily PRN, rhinitis, Use in each nostril as directed, Reported on 02/04/2025 atorvastatin (LIPITOR) 40 mg tabletIndications :Mixed hyperlipidemia Take 1 tablet (40 mg total) by mouth daily 100 tablet 1 09/26/19 25 Active levothyroxine (SYNTHROID) 112 mcg tabletIndications :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 Take 1 tablet (112 mcg total) by mouth daily 100 tablet 1 09/26/19 25 Active citalopram (CeleXA) 10 mg tabletIndications :IRISH (generalized anxiety disorder) Take 1 tablet (10 mg total) by mouth daily 90 tablet 3 01/03/20 25 Active blood glucose diagnostic (glucose blood) stripIndications: Type 2 diabetes mellitus with hypoglycemia without coma, without long-term current use of insulin (HCC) Use to test blood sugar once daily - relion premier test strips 100 each 1 12/06/19 25 026 Active aspirin 81 mg enteric coated tablet Take 1 tablet (81 mg total) by mouth daily Active pantoprazole DR (PROTONIX) 40 mg EC tabletIndications :Mucositis Prophylaxis Take 1 tablet (40 mg total) by mouth daily 30 tablet 2 01/29/20 25 025 Active aspirin 81 mg enteric coated tabletIndications :cerebral ischemia Take 1 tablet (81 mg total) by mouth daily 30 tablet 11 11/26/19 23 025 Discontin ued(Stop Taking at Discharge ) triamcinolone (KENALOG) 0.1 % cream 08/22/19 25 025 Discontin ued(Stop Taking at Discharge ) omeprazole (PriLOSEC) 20 mg capsuleIndication s:Gastroesophagea l reflux disease, unspecified whether esophagitis present Take 1 capsule (20 mg total) by mouth 2 (two) times a day 200 capsule 1 09/26/19 25 025 Discontin ued(Stop Taking at Discharge ) ondansetron ODT (ZOFRAN-ODT) 4 mg disintegrating tablet Take 1 tablet (4 mg total) by mouth every 8 (eight) hours as needed for nausea Collaborating physician Robbin Frances MD 20 tablet 12/04/19 025 Discontin ued(Stop Taking at Discharge ) Active Problems Problem Noted Date Diagnosed Date Myofascial pain syndrome of thoracic spine 02/04 Assessment & Plan (02/04/2025 3:52 PM CDT): Muscle spasm of mid back/abdominal wall Intermittent muscle spasms in the mid back, likely musculoskeletal. Painful but not constant. No specific trigger identified, but activities like bending over may exacerbate symptoms. - Consider deep massage or foster care worker for relief - Can do trigger point injections if needed Epigastric pain 01/27/2025 Assessment & Plan (02/04/2025 3:52 PM CDT): Epigastric pain and bloating Intermittent epigastric pain and bloating, likely related to chronic gastritis. Symptoms have improved but persist intermittently. No nausea or vomiting reported. Bloating may be alleviated with dietary adjustments and [id number] medications. - Continue pantoprazole 40 mg once daily - Use Beano or Gas-X for bloating - Consider doubling pantoprazole dose for one to two weeks if symptoms worsen - Use Mylanta or Tums for additional symptom relief if needed - Has follow-up with Gastroenterology set up in few weeks EGD 01/28/2025 Impression: - Normal esophagus. - Erythematous mucosa in the antrum and prepyloric region of the stomach. Biopsied. - Multiple fundic gland gastric polyps. - Normal examined duodenum. Recommendation: - [facility]. - Resume previous diet. - No ibuprofen, naproxen, or other non-steroidal anti-inflammatory drugs. - Use Protonix (pantoprazole) 40 mg PO daily for 3 months. - Await pathology results. Pathology from EGD 01/2025 Gastric, biopsy: - Gastric tissue with minimal chronic inactive inflammation, reactive/regenerative alterations, and focal intestinal metaplasia. - Negative for dysplasia or malignancy. - Negative Helicobacter immunostain. Chest pain, unspecified type 01/25/2025 Assessment & Plan (02/04/2025 3:52 PM CDT): - Recent hospitalization for chest pain, epigastric pain and had workup including a stress testing which was found to be abnormal and then had cardiac catheterization which was unremarkable NM MPI SPECT (REST AND/OR STRESS) MULTIPLE STUDIES 01/2025 IMPRESSION: 1. Abnormal myocardial perfusion study. 2. Reversible 15% anterolateral perfusion defect raises suspicion for ischemia. The remaining 10% is fixed. 3. Normal left ventricular ejection fraction and wall motion. CARDIAC CATHETERIZATION 01/27/2025 SUMMARY OF FINDINGS 1. Largely Normal major vessel coronary anatomy other than a mild single-vessel CAD of the mid LAD. 2. Normal left ventricular systolic function, visually estimated ejection fraction 60-70%. 3. Normal left ventricular filling pressures, LVEDP 5 mm of mercury. Tubular adenoma of colon 11/12/2024 Ptosis of both eyelids 09/04/2024 Assessment & Plan (12/02/2024 9:38 AM CDT): Hereditary eyelid ptosis affecting vision, particularly peripheral vision. Qualified for eyelid surgery, with testing and payment complete. Surgery expected to improve visual field with minimal post-operative pain. - Referred to Dr. Mcghee, an oculoplastic surgeon, for eyelid surgery --> scheduled an appointment 01/2025 Assessment & Plan (09/04/2024 12:23 PM CDT): Hereditary eyelid ptosis affecting vision, particularly peripheral vision. Qualified for eyelid surgery, with testing and payment complete. Surgery expected to improve visual field with minimal post-operative pain. - Refer to Dr. Mcghee, an oculoplastic surgeon, for eyelid surgery. Full code status 12/03/2023 Assessment & Plan (12/03/2023 2:26 PM CDT): Advance Care Planning Advance Care Planning Conversation Pertinent diagnoses: hyperlipidemia, morbid obesity, T2DM The patient and/or family consented to a voluntary Advance Care Planning conversation. Individuals present for the conversation: patient Summary of the conversation: Patient was proceed with CPR, intubation and mechanical ventilation if she has a cardiac arrest Outcome of the conversation and documents completed (select all that apply): CHANGE code status to FULL CODE I spent 7 minutes providing separately identifiable ACP services with the patient and/or surrogate decision maker in a voluntary, in-person conversation discussing the patient's wishes and goals as detailed in the above note. Star Villalobos MD IRISH (generalized anxiety disorder) 03/30/2023 Assessment & Plan (12/02/2024 9:34 AM CDT): - Chronic condition, controlled/stable - lot of anxiety in personal life and personal health - causing distress in her life, discussed symptoms - has helped her with anxiety, and depressed affect - currently on Citalopram 10 mg daily The current medical regimen is effective; continue present plan and medications. 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 Assessment & Plan (12/03/2023 12:39 PM CDT): - Chronic condition, controlled/stable - lot of anxiety in personal life and personal health - causing distress in her life, discussed symptoms - has helped her with anxiety, and depressed affect - currently on Citalopram 10 mg daily - continue current management Assessment & Plan (08/23/2023 2:31 PM CDT): - Chronic condition, controlled/stable - lot of anxiety in personal life and personal health - causing distress in her life, discussed symptoms - has helped her with anxiety, and depressed affect - currently on Citalopram 10 mg daily - continue current management Assessment & Plan (04/23/2023 4:15 PM 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 PROFESSOR): - recent diagnosis, better controlled - lot of anxiety in personal life and personal health - causing distress in her life, discussed symptoms - has helped her with anxiety, and depressed affect - currently on Citalopram 10 mg daily, started on last visit with great results - continue current management, refill provided Assessment & Plan (04/05/2023 1:48 PM 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 PROFESSOR): Improved. Patient states she is noticed a difference since starting citalopram by Dr. Villalobos a few weeks ago. Assessment & Plan (03/30/2023 1:55 PM 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 PROFESSOR): - new diagnosis - lot of anxiety in personal life and personal health - causing distress in her life, discussed symptoms - starting Citalopram 10 mg daily, f/u in 6-8 weeks Chronic non-seasonal allergic rhinitis Assessment & Plan (05/30/2024 6:45 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): -chronic, stable -currently uses azelastine nasal spray -reports worsening of allergies with different environmental factors -Encouraged consistent use of nasal spray -continue current treatment plan Assessment & Plan (03/23/2023 3:43 PM CDT): Personal interpretation: CT Head: sinuses, middle ear and mastoids were clear Nasal saline spray (Simply saline, [employer], [place], [place]) 2 second sprays or 2 squeezes into each nostril while looking down over the sink, do not need to sniff in. Flonase 1 spray, Astelin (azelastine) 1 sprays into each nostril while looking down over the sink, do not sniff in or blow nose after use for at least 30 minutes twice daily 64 ounces of caffeine free and soda free fluid daily History of TIA (transient ischemic attack) 11/25 Assessment & Plan (03/30/2023 1:52 PM 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 PROFESSOR): - recent hospitalization - most symptoms have resolved, reports right side numbness intermittently - reviewed records and work up - MRI done in hospital needs further evaluation - finding as shown below - currently on Aspirin 81 mg daily, already on Atorvastatin 40 mg nightly, has normal blood pressure - s/p the following tests Transthoracic Echo (TTE) With Bubble Study CT of the head without contrast MRI of the brain without contrast VL US Carotids - established with Interventional vascular neurology and has a follow up appointment coming up - MRI BRAIN WO CONTRAST 10/2022 IMPRESSION: 1. Right internal capsule diffusion hyperintensity. The ADC map is nondiagnostic on this open MRI and subsequently request correlation with the patient's clinical presentation and physical examination to exclude a small acute to subacute infarction. 2. The need for repeat MRI on the closed magnet as clinically indicated. 3. Chronic microvascular ischemic type white-matter changes and additional findings as above. Lab Results Component Value Date LDLCALC 90 11/24/2022 Assessment & Plan (11/30/2022 1:45 PM CDT): - recent hospitalization - most symptoms have resolved, reports right side numbness intermittently - reviewed records and work up - MRI done in hospital needs further evaluation - she already has an appointment today with another provider - finding as shown below - started on Aspirin at time of discharge, already on Atorvastatin 40 mg nightly, has normal blood pressure - s/p the following tests Transthoracic Echo (TTE) With Bubble Study CT of the head without contrast MRI of the brain without contrast VL US Carotids - MRI BRAIN WO CONTRAST IMPRESSION: 1. Right internal capsule diffusion hyperintensity. The ADC map is nondiagnostic on this open MRI and subsequently request correlation with the patient's clinical presentation and physical examination to exclude a small acute to subacute infarction. 2. The need for repeat MRI on the closed magnet as clinically indicated. 3. Chronic microvascular ischemic type white-matter changes and additional findings as above. Lab Results Component Value Date LDLCALC 90 11/24/2022 Nausea 09/15/2022 Assessment & Plan (09/15/2022 12:52 PM CDT): -improving -likely due to viral infection -advised patient that she is well enough to have her teeth pulled next week -advised patient to drink plenty of fluids and follow a bland diet if nausea returns Irritable bowel syndrome with constipation 04/19 Overview (01/28/2025): Following with GI EGD 01/2025 Procedure: Upper GI endoscopy Indications: Epigastric abdominal pain Impression: - Normal esophagus. - Erythematous mucosa in the antrum and prepyloric region of the stomach. Biopsied. - Multiple fundic gland gastric polyps. - Normal examined duodenum. Pharyngoesophageal dysphagia 01/10/2022 Cervical spondylosis 10/18/2021 Assessment & Plan (11/09/2022 2:05 PM CDT): - -chronic, not at/near goal -at last visit, referral was placed to Orthopedics rather than orthopedic spinal surgeon. -refer to orthopedic spinal surgeon for further evaluation -continue going to physical therapy -follow up if not improving Assessment & Plan (2022 2:11 PM CDT): -chronic, not improving -refer to orthopedics spinal surgeon for further evaluation -refer to physical therapy to extend number of visits -continue on OTC ibuprofen for pain -patient declines muscle relaxant at this time. -follow up if not improving Assessment & Plan (10/12/2022 4:58 PM CDT): - chronic, improved but not at goal - was seen by orthopedic spine in the past on 09/2019 - has tried NSAIDs in the past - has been doing chiropractor adjustments with limited improvements - XR Cervical spine and MRI of cervical spine as shown below - Past Ortho note - after PT will revisit this issue, if no improvement recommend Cervical MRI followed by ACDF at C5-6 which was recommended by orthopedic spine surgeon in the past - referred to Physical therapy and about to complete session which has helped her - continue current therapy XR Cervical Spine 11/09 1.Unchanged moderate to severe degenerative disc disease at C5-C6 and C6-C7, and mild at C4-C5. 2. No new acute findings are identified in the cervical spine. - MRI Cervical spine WO Contrast 10/2021 - obtained with findings as shown below C2-C3: No significant disc bulge, spinal canal or neural foraminal narrowing. There is right greater than left facet arthropathy. C3-C4: Disc bulge without significant spinal canal stenosis. Uncovertebral spurring and facet arthropathy with mild bilateral neural foraminal narrowing. C4-C5: Posterior disc osteophyte complex without significant spinal canal stenosis. Uncovertebral spurring and facet arthropathy with [id number] right and mild left neural foraminal narrowing. C5-C6: Posterior disc osteophyte complex without significant spinal canal or neural foraminal narrowing. There is bilateral facet arthropathy. C6-C7: Posterior disc osteophyte complex and a superimposed disc protrusion eccentric towards the left neural foramen flattens the left ventral thecal sac. Uncovertebral spurring and facet arthropathy moderate proximal left and no significant right neural foraminal narrowing. C7-T1: No significant disc bulge, spinal canal or neural foraminal narrowing. UPPER THORACIC: Incompletely imaged. No high-grade spinal canal stenosis. Assessment & Plan (07/16/2022 4:59 PM 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 PROFESSOR): - chronic, improved but not at goal - was seen by orthopedic spine in the past on 09/2019 - has tried NSAIDs in the past - has been doing chiropractor adjustments with limited improvements - XR Cervical spine and MRI of cervical spine as shown below - Past Ortho note - after PT will revisit this issue, if no improvement recommend Cervical MRI followed by ACDF at C5-6 which was recommended by orthopedic spine surgeon in the past - referred to Physical therapy (11/09), had COVID and was postponed but was feeling better and did not do, however, with worse symptoms open to doing it, referral placed to physical therapy and has been doing PT 06/2022 with some improvement - continue current therapy XR Cervical Spine 11/09 1.Unchanged moderate to severe degenerative disc disease at C5-C6 and C6-C7, and mild at C4-C5. 2. No new acute findings are identified in the cervical spine. - MRI Cervical spine WO Contrast 10/2021 - obtained with findings as shown below C2-C3: No significant disc bulge, spinal canal or neural foraminal narrowing. There is right greater than left facet arthropathy. C3-C4: Disc bulge without significant spinal canal stenosis. Uncovertebral spurring and facet arthropathy with mild bilateral neural foraminal narrowing. C4-C5: Posterior disc osteophyte complex without significant spinal canal stenosis. Uncovertebral spurring and facet arthropathy with [id number] right and mild left neural foraminal narrowing. C5-C6: Posterior disc osteophyte complex without significant spinal canal or neural foraminal narrowing. There is bilateral facet arthropathy. C6-C7: Posterior disc osteophyte complex and a superimposed disc protrusion eccentric towards the left neural foramen flattens the left ventral thecal sac. Uncovertebral spurring and facet arthropathy moderate proximal left and no significant right neural foraminal narrowing. C7-T1: No significant disc bulge, spinal canal or neural foraminal narrowing. UPPER THORACIC: Incompletely imaged. No high-grade spinal canal stenosis. Assessment & Plan (05/12/2022 10:54 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): - chronic, not at goal - worse - was seen by orthopedic spine in the past on 09/2019 - has tried NSAIDs in the past - has been doing chiropractor adjustments with limited improvements - XR Cervical spine and MRI of cervical spine as shown below - has tried foster care worker without big benefit - Past Ortho note - after PT will revisit this issue, if no improvement recommend Cervical MRI followed by ACDF at C5-6 which was recommended by orthopedic spine surgeon in the past - referred to Physical therapy (11/09), had COVID and was postponed but was feeling better and did not do, however, with worse symptoms open to doing it, referral placed to physical therapy - discussed other modalities of management for future, pain management, physical therapy, injections, including surgery which is last resort - open to trying physical therapy - referral placed at [facility] XR Cervical Spine 11/09 1.Unchanged moderate to severe degenerative disc disease at C5-C6 and C6-C7, and mild at C4-C5. 2. No new acute findings are identified in the cervical spine. - MRI Cervical spine WO Contrast 10/2021 - obtained with findings as shown below C2-C3: No significant disc bulge, spinal canal or neural foraminal narrowing. There is right greater than left facet arthropathy. C3-C4: Disc bulge without significant spinal canal stenosis. Uncovertebral spurring and facet arthropathy with mild bilateral neural foraminal narrowing. C4-C5: Posterior disc osteophyte complex without significant spinal canal stenosis. Uncovertebral spurring and facet arthropathy with [id number] right and mild left neural foraminal narrowing. C5-C6: Posterior disc osteophyte complex without significant spinal canal or neural foraminal narrowing. There is bilateral facet arthropathy. C6-C7: Posterior disc osteophyte complex and a superimposed disc protrusion eccentric towards the left neural foramen flattens the left ventral thecal sac. Uncovertebral spurring and facet arthropathy moderate proximal left and no significant right neural foraminal narrowing. C7-T1: No significant disc bulge, spinal canal or neural foraminal narrowing. UPPER THORACIC: Incompletely imaged. No high-grade spinal canal stenosis. Assessment & Plan (02/28/2022 1:43 PM CDT): - chronic, stable - was seen by orthopedic spine in the past on 09/2019 - has tried NSAIDs in the past - has been doing chiropractor adjustments with limited improvements - XR Cervical spine, completed and impression as shown below XR Cervical Spine 11/09 1.Unchanged moderate to severe degenerative disc disease at C5-C6 and C6-C7, and mild at C4-C5. 2. No new acute findings are identified in the cervical spine. - MRI Cervical spine WO Contrast 10/2021 - obtained with findings as shown below C2-C3: No significant disc bulge, spinal canal or neural foraminal narrowing. There is right greater than left facet arthropathy. C3-C4: Disc bulge without significant spinal canal stenosis. Uncovertebral spurring and facet arthropathy with mild bilateral neural foraminal narrowing. C4-C5: Posterior disc osteophyte complex without significant spinal canal stenosis. Uncovertebral spurring and facet arthropathy with rpnz-[id number]-[id number] right and mild left neural foraminal narrowing. C5-C6: Posterior disc osteophyte complex without significant spinal canal or neural foraminal narrowing. There is bilateral facet arthropathy. C6-C7: Posterior disc osteophyte complex and a superimposed disc protrusion eccentric towards the left neural foramen flattens the left ventral thecal sac. Uncovertebral spurring and facet arthropathy moderate proximal left and no significant right neural foraminal narrowing. C7-T1: No significant disc bulge, spinal canal or neural foraminal narrowing. UPPER THORACIC: Incompletely imaged. No high-grade spinal canal stenosis. - Past Ortho note - after PT will revisit this issue, if no improvement recommend Cervical MRI followed by ACDF at C5-6 which was recommended by orthopedic spine surgeon in the past - referred to Physical therapy (11/09), had COVID and was postponed but now feeling better, can refer again in future if pain is an issue - continue current management Assessment & Plan (12/06/2021 8:56 AM CDT): - chronic, stable - was seen by orthopedic spine in the past on 09/2019 - has tried NSAIDs in the past - has been doing chiropractor adjustments with limited improvements - XR Cervical spine, completed and impression as shown below XR Cervical Spine 11/09 1.Unchanged moderate to severe degenerative disc disease at C5-C6 and C6-C7, and mild at C4-C5. 2. No new acute findings are identified in the cervical spine. - MRI Cervical spine WO Contrast 10/2021 - obtained with findings as shown below C2-C3: No significant disc bulge, spinal canal or neural foraminal narrowing. There is right greater than left facet arthropathy. C3-C4: Disc bulge without significant spinal canal stenosis. Uncovertebral spurring and facet arthropathy with mild bilateral neural foraminal narrowing. C4-C5: Posterior disc osteophyte complex without significant spinal canal stenosis. Uncovertebral spurring and facet arthropathy with [id number] right and mild left neural foraminal narrowing. C5-C6: Posterior disc osteophyte complex without significant spinal canal or neural foraminal narrowing. There is bilateral facet arthropathy. C6-C7: Posterior disc osteophyte complex and a superimposed disc protrusion eccentric towards the left neural foramen flattens the left ventral thecal sac. Uncovertebral spurring and facet arthropathy moderate proximal left and no significant right neural foraminal narrowing. C7-T1: No significant disc bulge, spinal canal or neural foraminal narrowing. UPPER THORACIC: Incompletely imaged. No high-grade spinal canal stenosis. - Past Ortho note - after PT will revisit this issue, if no improvement recommend Cervical MRI followed by ACDF at C5-6 which was recommended by orthopedic spine surgeon in the past - referred to Physical therapy (11/09), had COVID and was postponed but now feeling better, can refer again in future if pain is an issue Assessment & Plan (10/27/2021 6:42 AM CDT): - chronic, worse - was seen by orthopedic spine in the past on 09/2019 - has tried NSAIDs in the past - has been doing chiropractor adjustments with limited improvements - obtain XR Cervical spine, order placed XR Cervical Spine 11/09 1.Unchanged moderate to severe degenerative disc disease at C5-C6 and C6-C7, and mild at C4-C5. 2. No new acute findings are identified in the cervical spine. Given the moderate to severe findings on XR of cervical spine I will proceed with ordering MRI of cervical spine. Personal history of colonic polyps 08/04/2021 Assessment & Plan (05/12/2022 10:54 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): - up to date - Colonoscopy 04/11 Impression: - External hemorrhoids found on perianal exam. - The entire examined colon is normal. - Internal hemorrhoids. Treated with infrared coagulation (IRC). - No specimens collected. Recommendation: - Repeat colonoscopy in 5 years for screening purposes. Prediabetes 07/18/2021 Overview (12/02/2024): Following with Endocrinology Assessment & Plan (12/02/2024 1:07 PM CDT): - chronic, persistent - following with endocrinology at [facility] - [place] [facility] [facility] - has hx of reactive hypoglycemia, not diabetes, has known prediabetes - Recently was prescribed Mounjaro by endocrinology at [facility] but she is afraid of hypoglycemia which is her main issue and is also too costly for her - has known obesity, Body mass index is 39.22 kg/m . Lab Results Component Value Date HGBA1C 6.2 03/26/2024 HGBA1C 6.8 07/24/2023 HGBA1C 6 02/20/2023 Lab Results Component Value Date LDLCALC 69 11/26/2024 CREATININE 0.77 01/07/2024 ' Assessment & Plan (09/15/2022 12:53 PM CDT): -chronic, not at goal -continue seeing upsetter setter up -follow up with PCP Assessment & Plan (07/16/2022 4:47 PM 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 PROFESSOR): - chronic, worse - no longer seeing Endocrinology at [facility] - has known obesity, Body mass index is 38.45 kg/m . Lab Results Component Value Date HGBA1C 6.5 07/05/2022 HGBA1C 6.1 01/02/2022 HGBA1C 5.7 07/11/2021 Lab Results Component Value Date LDLCALC 71 10/18/2021 CREATININE 50 07/05/2022 ' Assessment & Plan (01/16/2022 2:01 PM CDT): This is a chronic condition which is at goal. Personally reviewed A1c -6.1% , at goal less than 6.4% Medication- no medications at this times. Monitor blood sugar 3times a week and for episodes of hypoglycemia. She has seen the dietitian and reports improvement with the addition of protein shakes. Reviewed protein sources. Encouraged annual eye exam. Monofilament foot exam completed, protective senses intact Urine microalbumin/creatinine ratio - <30 currently not on angelica/arb , at goal <30 Personally reviewed labs: GFR- 82 Kidney function- normal B/P today- 146/66 currently not on ANGELICA/ARB. Not at Goal blood pressure is <140/90 and as close to 120/80 as possible. Personally reviewed LDL -71- currently on atorvastatin. At Goal of less than 70 No history of macrovascular disease - CVA, [place]. Encouraged to eat protein source at each meals. Assessment & Plan (01/12/2022 10:25 PM CDT): - chronic, stable - 11/09 - Normal Insulin, Total and Normal C-peptide level - most recent A1c levels as shown below - established with Endocrinology already - never been diabetic - managed with lifestyle, not on any medications - continue with current management Lab Results Component Value Date HGBA1C 6.1 01/02/2022 HGBA1C 5.7 07/11/2021 HGBA1C 5.8 (H) 04/08/2021 Hepatic steatosis 05/06/2021 History of cholecystectomy 05/06/2021 Reactive hypoglycemia 04/27/2021 Assessment & Plan (02/20/2023 1:47 PM CDT): - established with Endocrinology, please see documentation from the provider - has been prescribed Acarbose for use prior to meals which she plans to start after her vacation - most recent A1c as shown below Lab Results Component Value Date HGBA1C 6.0 (H) 11/23/2022 HGBA1C 6.5 07/05/2022 HGBA1C 6.1 01/02/2022 Lab Results Component Value Date LDLCALC 90 11/24/2022 CREATININE 0.78 01/27/2023 Assessment & Plan (10/12/2022 4:59 PM CDT): - established with Endocrinology, please see documentation from the provider - has been prescribed Acarbose for use prior to meals which she plans to start after her vacation Assessment & Plan (09/12/2022 12:55 PM CDT): No true hypoglycemia seen on CGM, which is defined as a glucose lower than 55 mg/dl. Will perform a mixed meal tolerance test in the clinic today, which is the gold standard for diagnosing postprandial hypoglycemia. She will buy a mixed meal (carbs, protein, fats) from the cafeteria and we will monitor her glucoses every hour for 4 hours. If she drops below 55 mg/dl, we will send hypoglycemia labs including insulin, proinsulin, C peptide, beta hydroxybutyrate, and sulfonylurea screen. If she does not drop below 55 mg/dl, then hypoglycemia is ruled out and I will send her back to her PCP for further evaluation of these symptoms. Assessment & Plan (08/29/2022 12:48 PM CDT): I am not convinced that her symptoms are related to hypoglycemia as she has not satisfied Whipple's triad (glucoses never below 55 mg/dl, which is the definition of hypoglycemia). Will perform 14-day Vern Pro CGM to review her glucoses. Further treatment recommendations to follow. Based on the findings, we could consider starting acarbose. She does not have fasting hypoglycemia, so a fast is not needed. Insulinoma would therefore be very unlikely, especially given her negative abdominal imaging. We could consider doing a formal mixed meal tolerance test in the future pending the results from the Vern. Assessment & Plan (07/16/2022 4:49 PM 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 PROFESSOR): - recurring condition, not well controlled - having issues after meals with weakness, dizziness and low BG numbers in 60s - referred to nutrition therapy/counseling - established with Endocrinology at [facility] but she felt like she did not get much relied and has an appointment with a new upsetter setter up on August 29, 2022 - no hx of diabetes, has been pre-diabetic prior to most recent A1c - not on any medications - start Glyburide before meals - most recent A1c as shown below Lab Results Component Value Date HGBA1C 6.1 01/02/2022 HGBA1C 5.7 07/11/2021 HGBA1C 5.8 (H) 04/08/2021 Lab Results Component Value Date LDLCALC 71 10/18/2021 CREATININE 0.70 09/25/2021 Assessment & Plan (01/16/2022 2:10 PM CDT): This is a chronic condition which continues. Reports blood sugars are as low as 61- associated with feeling like she is going to pass out States she has to eat every 2 hrs. She reports drinking protein shakes helped but she stopped this because of increased phelm. Latest Reference Range & Units 10/18/21 14:54 C-Peptide, Serum 1.10 - 4.40 ng/mL 2.33 Insulin 2.6 - 25.0 mcIUnit/mL 10.2 Reports having oatmeal and apple juice for breakfast and then having blood sugars in the 80's. Encouraged protein at each meal. Assessment & Plan (07/18/2021 1:14 PM 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 PROFESSOR): - recurring condition, more frequent - having issues after meals with weakness, dizziness and low BG numbers in 60s - referred to nutrition therapy/counseling - established with Endocrinology - no hx of diabetes, is pre-diabetic which is improved - not on any medications - most recent A1c as shown below Lab Results Component Value Date HGBA1C 5.7 07/11/2021 Multinodular goiter 04/27/2021 Assessment & Plan (07/11/2021 11:21 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): EXAM DESCRIPTION: US THYROID 05/19/2021 REASON FOR STUDY: Multinodular goiter. FINDINGS: RIGHT: The right thyroid lobe measures 4.0 x 1.6 x 1.5 cm. The right thyroid lobe is nor heterogeneous mal in echotexture. LEFT: The left thyroid lobe measures 2.7 x 0.8 x 1.1 cm. The left thyroid lobe is heterogeneous in echotexture. ISTHMUS: The isthmus measures cm in AP dimension. The isthmus is no heterogeneous rmal in echotexture. VASCULARITY: Increased diffusely . IMPRESSION: Diffusely heterogeneous thyroid with diffusely increased vascularity. Recommend correlation with thyroid function studies. No discrete nodule identified. Will resolve problem. Assessment & Plan (04/27/2021 3:06 PM 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 PROFESSOR): Reports history of multi-nodular goiter with biopsy in the past. No records found. Thyroid ultrasound ordered. 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 Elizondo from time to time - currently on atorvastatin 40 mg daily and aspirin 81 mg daily, continue management - most recent LDL as shown below - Monitored with ultrasound of carotids with most recent finding as shown below - continue current management US Carotids 09/12 CONCLUSIONS: 1. Moderate plaque in the right internal carotid artery appears calcified. The right internal carotid artery has 50-69% stenosis. 2. Moderate plaque in the left internal carotid artery appears calcified. The left internal carotid artery has 50-69% stenosis. US Carotids 2023 Conclusion: Moderate (50-80%) atherosclerotic obstruction of the right internal carotid artery. Moderate (50-80%) atherosclerotic obstruction of the left internal carotid artery. Bilateral antegrade vertebral flow. A follow-up study may be performed after 6 months. Lab Results Component Value Date LDLCALC 69 11/26/2024 The ASCVD Risk score (Castillo LA, et al., 2019) failed to calculate for the following reasons: Risk score cannot be calculated because patient has a medical history suggesting prior/existing ASCVD Assessment & Plan (09/04/2024 12:24 PM CDT): - chronic condition, stable - has known bilateral carotid artery stenosis - follows with Cardiovascular medicine - Dr. Elizondo from time to time - currently on atorvastatin 40 mg daily and aspirin 81 mg daily, continue management - most recent LDL as shown below - Monitored with ultrasound of carotids with most recent finding as shown below US Carotids 09/12 CONCLUSIONS: 1. Moderate plaque in the right internal carotid artery appears calcified. The right internal carotid artery has 50-69% stenosis. 2. Moderate plaque in the left internal carotid artery appears calcified. The left internal carotid artery has 50-69% stenosis. US Carotids 2023 Conclusion: Moderate (50-80%) atherosclerotic obstruction of the right internal carotid artery. Moderate (50-80%) atherosclerotic obstruction of the left internal carotid artery. Bilateral antegrade vertebral flow. A follow-up study may be performed after 6 months. Lab Results Component Value Date LDLCALC 70 07/25/2024 The ASCVD Risk score (Castillo LA, et al., 2019) failed to calculate for the following reasons: Risk score cannot be calculated because patient has a medical history suggesting prior/existing ASCVD Assessment & Plan (08/23/2023 2:56 PM CDT): - chronic condition, stable - has known bilateral carotid artery stenosis - follows with Cardiovascular medicine - Dr. Elizondo from time to time - currently on atorvastatin 40 mg daily and aspirin 81 mg daily, continue management - most recent LDL as shown below - has repeat US carotids tomorrow via cardiology Conclusion: Moderate (50-80%) atherosclerotic obstruction of the right internal carotid artery. Moderate (50-80%) atherosclerotic obstruction of the left internal carotid artery. Bilateral antegrade vertebral flow. A follow-up study may be performed after 6 months. Lab Results Component Value Date LDLCALC 90 11/24/2022 The ASCVD Risk score (Castillo LA, et al., 2019) failed to calculate for the following reasons: The patient has a prior [place] or stroke diagnosis Assessment & Plan (10/19/2022 2:08 PM CDT): - chronic condition - has known bilateral carotid artery stenosis - follows with Dr. Elizondo from time to time - currently on atorvastatin 40 mg daily - most recent LDL as shown below - recommend that we be more aggressive with LDL goal, reports that she was off her medication while she was on steroids - plan to recheck in 3-4 months Conclusion: 1. Moderate (50-80%) atherosclerotic obstruction of the right internal carotid artery. 2. Moderate (50-80%) atherosclerotic obstruction of the left internal carotid artery. 3. Bilateral antegrade vertebral flow. 4. A follow-up study may be performed after 6 months. Lab Results Component Value Date LDLCALC 64 07/26/2022 The 10-year ASCVD risk score (Castillo LA, et al., 2019) is: 5.7% Values used to calculate the score: Age: 66 years Sex: Female Is Non- : No Diabetic: No Tobacco smoker: No Systolic Blood Pressure: 116 mmHg Is BP treated: No HDL Cholesterol: 53 mg/dL Total Cholesterol: 147 mg/dL Assessment & Plan (11/11/2020 12:01 PM CDT): - has known bilateral carotid artery stenosis [...] (H) 09/22/2020 The 10-year ASCVD risk score (Christal SEALS Jr., et al., 2013) is: 9.3% Values used to calculate the score: Age: 65 years Sex: Female Is Non- : No Diabetic: No Tobacco smoker: No Systolic Blood Pressure: 146 mmHg Is BP treated: No HDL Cholesterol: 67 mg/dL Total Cholesterol: 265 mg/dL GERD (gastroesophageal reflux disease) 0 Assessment & Plan (12/02/2024 1:05 PM CDT): - chronic, stable - follows with Gastroenterology - currently on Omeprazole 20 mg daily for symptom control The current medical regimen is effective; continue present plan and medications. Assessment & Plan (04/23/2023 4:14 PM 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 PROFESSOR): - chronic, stable - follows with Gastroenterology - currently on Omeprazole 20 mg daily for symptom control - continue with current therapy Assessment & Plan (07/05/2022 2:59 PM 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 PROFESSOR): - chronic, stable - follows with Gastroenterology - currently on Omeprazole 20 mg daily for symptom control - continue with current therapy Assessment & Plan (12/02/2020 9:50 PM CDT): - follows with Gastroenterology - currently on Omeprazole 20 mg daily for symptom control - increase to Omperazole 20 mg BID for now given abdominal discomfort Assessment & Plan (11/28/2020 11:24 PM CDT): - follows with Gastroenterology - currently on Omeprazole 20 mg daily for symptom control Assessment & Plan (06/09/2020 3:43 PM 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 PROFESSOR): Continue omeprazole which should help with her gastroesophageal reflux disease and also dyspepsia symptoms. Assessment & Plan (03/22/2020 11:45 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): -Omeprazole seems to control in the day but when she lies down at night, she has more regurgitation. She takes omeprazole in the morning -Take omeprazole about 30 minutes prior to dinner. Do not eat or drink anything 3 hours before lying down. -Follow GERD diet. Class 2 severe obesity due t o excess calories with serious comorbidity and body mass index (BMI) of 39.0 to 39.9 in adult 01/15/2020 Assessment & Plan (12/02/2024 9:34 AM CDT): Wt Readings from Last 3 Encounters: 12/02/24 103.6 kg (228 lb 8 oz) 11/12/24 102.8 kg (226 lb 9.6 oz) 10/21/24 103.8 kg (228 lb 12.8 oz) Body mass index is 39.22 kg/m . - chronic condition, not at goal, fluctuates and persistent - goal BMI <30 - BMI Follow-up includes: nutrition management, exercise management - co-morbidities - pre-diabetes, hyperlipidemia Lab Results Component Value Date HGBA1C 6.2 03/26/2024 Assessment & Plan (10/21/2024 11:41 AM CDT): Wt Readings from Last 3 Encounters: 10/21/24 103.8 kg (228 lb 12.8 oz) 09/30/24 102.2 kg (225 lb 6.4 oz) 09/08/24 103.8 kg (228 lb 12.8 oz) Body mass index is 39.27 kg/m . - chronic condition, not at goal, fluctuates - goal BMI <30 - BMI Follow-up includes: nutrition management, exercise management - co-morbidities - Type 2 diabetes vs pre-diabetes, hyperlipidemia Assessment & Plan (07/07/2024 4:57 PM 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 PROFESSOR): Wt Readings from Last 3 Encounters: 07/07/24 103.4 kg (228 lb) 06/23/24 102.1 kg (225 lb) 06/18/24 99.8 kg (220 lb) Body mass index is 40.4 kg/m . - chronic condition, not at goal, worse, small weight gain noted - goal BMI <30 - BMI Follow-up includes: nutrition management, exercise management - co-morbidities - Type 2 diabetes, hyperlipidemia Assessment & Plan (06/23/2024 9:31 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): -chronic, not at/near goal goal BMI <30 Healthy, high-protein, lower carbohydrate, lower fat lifestyle and exercise for 150min/week recommended Assessment & Plan (06/17/2024 11:17 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): Wt Readings from Last 3 Encounters: 06/17/24 101.5 kg (223 lb 11.2 oz) 05/29/24 100.2 kg (221 lb) 05/16/24 99.8 kg (220 lb) Body mass index is 39.64 kg/m . - chronic condition, not at goal - goal BMI <30 - BMI Follow-up includes: nutrition management, exercise management - co-morbidities - Type 2 diabetes, hyperlipidemia Assessment & Plan (05/30/2024 6:28 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): Wt Readings from Last 3 Encounters: 05/29/24 100.2 kg (221 lb) 05/16/24 99.8 kg (220 lb) 05/13/24 102 kg (224 lb 12.8 oz) Body mass index is 39.16 kg/m . -Stable, not at goal of <30 bmi -Discussed recommendations for exercise at least 30 minutes moderate to vigorous exercise as tolerated most days of the week. (minimum 150 minutes weekly) -Discussed importance of well-balanced diet Assessment & Plan (04/13/2024 4:55 PM 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 PROFESSOR): Wt Readings from Last 3 Encounters: 03/26/24 101.9 kg (224 lb 11.2 oz) 03/23/24 99.8 kg (220 lb) 03/07/24 99.8 kg (220 lb) Body mass index is 38.55 kg/m . - chronic condition, not at goal - BMI Follow-up includes: nutrition management, exercise management - co-morbidities - Type 2 diabetes, hyperlipidemia Assessment & Plan (12/03/2023 12:38 PM CDT): Wt Readings from Last 3 Encounters: 12/03/23 102.4 kg (225 lb 12.8 oz) 11/23/23 103 kg (227 lb) 10/01/23 104.1 kg (229 lb 8 oz) Body mass index is 40.01 kg/m . - chronic condition, not at goal but improved, some weight loss noted - BMI Follow-up includes: nutrition management, exercise management - co-morbidities - Type 2 diabetes, hyperlipidemia Assessment & Plan (10/01/2023 7:54 PM CDT): Wt Readings from Last 3 Encounters: 10/01/23 104.1 kg (229 lb 8 oz) 09/17/23 104 kg (229 lb 3.2 oz) 09/14/23 97.5 kg (215 lb) Body mass index is 39.37 kg/m . -Stable, not at goal of <30 bmi -Discussed recommendations for exercise at least 30 minutes moderate to vigorous exercise as tolerated most days of the week. (minimum 150 minutes weekly) -Discussed importance of well-balanced diet. Assessment & Plan (08/23/2023 2:43 PM CDT): Wt Readings from Last 3 Encounters: 08/23/23 103.7 kg (228 lb 9.6 oz) 07/25/23 103.3 kg (227 lb 12.8 oz) 07/24/23 103 kg (227 lb) Body mass index is 39.46 kg/m . - chronic condition, not at goal but improved, some weight loss noted - BMI Follow-up includes: nutrition management, exercise management - co-morbidities - Type 2 diabetes, hyperlipidemia Assessment & Plan (06/10/2023 4:06 PM 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 PROFESSOR): Wt Readings from Last 3 Encounters: 06/08/23 102.3 kg (225 lb 9.6 oz) 05/30/23 99.8 kg (220 lb) 05/15/23 105.2 kg (232 lb) Body mass index is 41.25 kg/m . - chronic condition, not at goal but improved, some weight loss noted - BMI Follow-up includes: nutrition management, exercise management - co-morbidities - Pre-diabetes, hyperlipidemia Assessment & Plan (04/23/2023 4:13 PM 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 PROFESSOR): Wt Readings from Last 3 Encounters: 04/23/23 105.2 kg (232 lb) 04/05/23 105.1 kg (231 lb 9.6 oz) 03/23/23 105.9 kg (233 lb 6.4 oz) Body mass index is 41.11 kg/m . - chronic condition, not at goal - BMI Follow-up includes: nutrition management, exercise management - co-morbidities - Pre-diabetes, hyperlipidemia Assessment & Plan (04/05/2023 1:47 PM 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 PROFESSOR): BMI Follow-up includes: exercise counseling. Assessment & Plan (02/20/2023 1:47 PM CDT): Wt Readings from Last 3 Encounters: 02/20/23 104.6 kg (230 lb 11.2 oz) 02/05/23 103 kg (227 lb) 01/30/23 103.2 kg (227 lb 8 oz) Body mass index is 40.88 kg/m . - chronic condition, not at goal - BMI Follow-up includes: nutrition management, exercise management Assessment & Plan (11/30/2022 1:19 PM CDT): Wt Readings from Last 3 Encounters: 11/30/22 102.5 kg (226 lb) 11/23/22 104.9 kg (231 lb 4.2 oz) 11/17/22 104.8 kg (231 lb) Body mass index is 38.79 kg/m . - chronic condition, not at goal - BMI Follow-up includes: nutrition management, exercise management Assessment & Plan (11/17/2022 2:39 PM CDT): HPI: Condition is not at/near goal goal BMI <30 A&P: Healthy, high-protein, lower carbohydrate, lower fat lifestyle and exercise for 150min/week recommended Assessment & Plan (11/09/2022 7:06 AM CDT): HPI: Condition is not at/near goal goal BMI <30 A&P: Healthy, high-protein, lower carbohydrate, lower fat lifestyle and exercise for 150min/week recommended Assessment & Plan (2022 2:12 PM CDT): HPI: Condition is not at/near goal goal BMI <30 A&P: Healthy, high-protein, lower carbohydrate, lower fat lifestyle and exercise for 150min/week recommended Assessment & Plan (10/19/2022 2:10 PM CDT): Wt Readings from Last 3 Encounters: 10/19/22 102.5 kg (226 lb) 10/12/22 104.3 kg (230 lb) 09/17/22 104.8 kg (231 lb) Body mass index is 39.06 kg/m . - chronic condition, not at goal - BMI Follow-up includes: nutrition management, exercise management Assessment & Plan (10/12/2022 4:58 PM CDT): Wt Readings from Last 3 Encounters: 10/12/22 104.3 kg (230 lb) 09/17/22 104.8 kg (231 lb) 09/15/22 105.1 kg (231 lb 12.8 oz) Body mass index is 39.48 kg/m . - chronic condition, not at goal - some weight gain noted - BMI Follow-up includes: nutrition management, exercise management Assessment & Plan (09/15/2022 7:06 AM CDT): HPI: Condition is not at/near goal goal BMI <30 A&P: Healthy, high-protein, lower carbohydrate, lower fat lifestyle and exercise for 150min/week recommended Assessment & Plan (08/06/2022 3:26 PM CDT): Wt Readings from Last 3 Encounters: 08/04/22 102.5 kg (226 lb) 07/05/22 101.6 kg (224 lb) 06/25/22 100.6 kg (221 lb 12.8 oz) Body mass index is 38.79 kg/m . - chronic condition, not at goal - some weight gain noted - BMI Follow-up includes: nutrition management, exercise management Assessment & Plan (07/05/2022 2:54 PM 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 PROFESSOR): Wt Readings from Last 3 Encounters: 07/05/22 101.6 kg (224 lb) 06/25/22 100.6 kg (221 lb 12.8 oz) 05/17/22 98.4 kg (217 lb) Body mass index is 38.45 kg/m . - chronic condition, not at goal - some weight gain - BMI Follow-up includes: nutrition management, exercise management Assessment & Plan (05/03/2022 6:17 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): Wt Readings from Last 3 Encounters: 05/02/22 97.5 kg (215 lb) 04/19/22 97.6 kg (215 lb 3.2 oz) 04/11/22 97.3 kg (214 lb 6.4 oz) Body mass index is 36.9 kg/m . - chronic condition, not at goal - BMI Follow-up includes: nutrition management, exercise management Assessment & Plan (03/09/2022 11:30 AM CDT): BMI Follow-up includes: nutrition counseling and exercise counseling. Not at goal Assessment & Plan (02/28/2022 1:42 PM CDT): Wt Readings from Last 3 Encounters: 02/28/22 96.2 kg (212 lb) 01/27/22 94.8 kg (209 lb 1.6 oz) 01/16/22 95.7 kg (211 lb) Body mass index is 36.37 kg/m . - chronic condition, not at goal - BMI Follow-up includes: nutrition counseling, exercise counseling and education Assessment & Plan (01/16/2022 2:39 PM CDT): HPI: Condition is not at/near goal goal BMI <30 A&P: Healthy, high-protein, lower carbohydrate, lower fat lifestyle and exercise for 150min/week recommended Recommend tracking everything you put in your mouth on an pili like GlucoVista Lower carb substitutions: [employer] carries a zero net carb bread If you are looking for whole potatoes, like to use in soup or new potato shape/flavor, radishes are a great replacement If you are looking for mashed potatoes, riced cauliflower in the frozen bag section are a great replacement For pasta, try using zucchini noodles, lay them out on a cookie sheet and pat dry with a tea towel to try to remove as much moisture as possible. Heat your pasta sauce on the stove and put the noodles in for 30-45 seconds. If you leave them in much longer they will become mushy [place] and/or coconut flour instead of regular flour For pizza dough, try fathead pizza dough recipe online. To get a crispy crust, bake on one side for 8-12 min, then flip over and bake on the other side for 8-12 min, then put toppings on and bake until the cheese on top of pizza melts chaffles recipe online For ice cream, try the brand Enlightened To replace coffee creamer and make it low carb, use heavy creamer with sugar free Torani sweetener For chips, try Whisps or pork rinds For yogurt, try Two Good frisian yogurt Use Pinterest for recipe ideas. Type in low carb... Hand Measurements: A fist or cupped hand = 1 cup 1 cup = 1 -2 servings of fruit juice 1 oz. of cold cereal 2 oz. of cooked cereal, rice or pasta 8 oz. of milk or yogurt A thumb = 1 oz. of cheese Consuming low-fat cheese helps you meet the required servings from the milk, yogurt and cheese group. 1 oz. of low-fat cheese counts as 8 oz. of milk or yogurt. Handful = 1-2 oz. of snack food Thumb tip = 1 teaspoon Keep high-fat foods, such as peanut butter and mayonnaise, at a minimum. One teaspoon is equal to the end of your thumb, from the knuckle up. Three teaspoons equals 1 tablespoon. Palm = 3 oz. of meat Choose lean poultry, fish, shellfish and beef. One palm size portion equals 3 oz. for an adult and 1 -2 oz. for a child under 5. 1 tennis ball or a fist= 1/2 cup of fruit and vegetables Healthy diets include a variety of colorful fruits and vegetables every day. The secret to serving size is in your hand. Snacking can add up. Remember, 1 handful equals 1 oz. of nuts and small candies. For chips and pretzels, 2 handfuls equals 1 oz. Because hand sizes vary, compare your fist size to an actual measuring cup. Assessment & Plan (01/12/2022 10:23 PM CDT): Wt Readings from Last 3 Encounters: 01/12/22 94.6 kg (208 lb 9.6 oz) 01/10/22 95.2 kg (209 lb 14.4 oz) 01/02/22 95.3 kg (210 lb) Body mass index is 36.03 kg/m . - chronic condition, not at goal but improving - has known prediabetes, hypertension and dyslipidemia - BMI Follow-up includes: nutrition counseling, exercise counseling Assessment & Plan (07/18/2021 1:10 PM 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 PROFESSOR): Wt Readings from Last 3 Encounters: 07/18/21 97.2 kg (214 lb 3.2 oz) 07/11/21 97.3 kg (214 lb 6.4 oz) 06/16/21 98.3 kg (216 lb 12.8 oz) Body mass index is 36.75 kg/m . - chronic condition, not at goal but improved - has known prediabetes, hypertension and dyslipidemia - BMI Follow-up includes: nutrition counseling, exercise counseling Assessment & Plan (05/04/2021 6:28 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): Wt Readings from Last 3 Encounters: 04/27/21 98.8 kg (217 lb 14.4 oz) 04/21/21 98.1 kg (216 lb 4.8 oz) 04/11/21 98.9 kg (218 lb) Body mass index is 37.11 kg/m . - chronic condition, not at goal but stable - BMI Follow-up includes: nutrition counseling, exercise counseling and education provided Assessment & Plan (04/19/2021 11:50 PM 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 PROFESSOR): Wt Readings from Last 3 Encounters: 04/11/21 98.9 kg (218 lb) 04/08/21 99.2 kg (218 lb 9.6 oz) 03/03/21 98.9 kg (218 lb) Body mass index is 37.5 kg/m . - chronic condition, not at goal - BMI Follow-up includes: nutrition counseling, exercise counseling and education provided Assessment & Plan (02/17/2021 4:21 AM CDT): Wt Readings from Last 3 Encounters: 02/10/21 97.8 kg (215 lb 8 oz) 02/07/21 96.9 kg (213 lb 11.2 oz) 02/06/21 96.6 kg (213 lb) Body mass index is 36.97 kg/m . - chronic condition, not at goal, small weight gain noted - BMI Follow-up includes: nutrition counseling, exercise counseling and education provided Assessment & Plan (02/08/2021 2:58 AM CDT): Wt Readings from Last 3 Encounters: 02/07/21 96.9 kg (213 lb 11.2 oz) 02/06/21 96.6 kg (213 lb) 12/20/20 99.8 kg (220 lb) Body mass index is 36.66 kg/m . - chronic condition, not at goal - BMI Follow-up includes: nutrition counseling, exercise counseling and education provided Assessment & Plan (12/02/2020 8:59 AM CDT): Wt Readings from Last 3 Encounters: 12/02/20 100.2 kg (221 lb) 12/01/20 100.5 kg (221 lb 9.6 oz) 11/24/20 98.9 kg (218 lb) Body mass index is 37.92 kg/m . - BMI Follow-up includes: nutrition counseling, exercise counseling and education provided Assessment & Plan (11/11/2020 11:51 AM CDT): Wt Readings from Last 3 Encounters: 11/11/20 99.4 kg (219 lb 1.6 oz) 10/29/20 101.6 kg (224 lb) 10/26/20 99.8 kg (220 lb) Body mass index is 37.59 kg/m . - BMI Follow-up includes: nutrition counseling, exercise counseling and education provided Elevated bilirubin 01/15/2020 Overview (12/02/2024): Following with GI Assessment & Plan (01/15/2020 9:28 AM CDT): Blood work done 01/04 showed mild elevation of bilirubin. No tea colored urine or jaundice noted. No fevers/chills. POTS (postural orthostatic tachycardia syndrome) 07/01/2019 Allergic rhinitis 03/03/2019 Assessment & Plan (01/27/2022 10:12 AM CDT): Nasal saline spray (Simply saline, Little Remedies, [place], [place]) 2 second sprays or 2 squeezes into each nostril while looking down over the sink, do not need to sniff in. Flonase 2 sprays into each nostril while looking down over the sink, do not sniff in or blow nose after use for at least 30 minutes daily Cetirizine 5 mg daily Doxycycline twice daily, avoid sun exposure while on antibiotics Call if no improvement in 6 weeks for trial of reflux therapy Assessment & Plan (06/12/2019 12:09 PM 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 PROFESSOR): Nasal saline spray (Simply saline, Little Remedies, [place], [place]) 2 second sprays or 2 squeezes into each nostril while looking down over the sink, do not need to sniff in 3-4 times daily Flonase 2 sprays into each nostril while looking down over the sink, do not sniff in or blow nose after use. Cetirizine without the decongestant (Zyrtec) 5 mg Humidifier at bedside Continue softer diet Assessment & Plan (03/03/2019 3:46 PM CDT): Nasal saline followed by Astelin 2 sprays into each nostril while looking down over the sink, do not sniff in or blow nose after use twice daily for 3 months Avoid diary in the evening Continue vaporizer Right lower quadrant abdominal pain 12/19/2018 Assessment & Plan (12/11/2024 5:32 AM CDT): Chronic right lower quadrant abdominal pain, previously evaluated in 2018 with unremarkable colonoscopy and CT scan. Pain may be due to adhesions from past gynecological surgery, but this is speculative as adhesions cannot be confirmed without surgery. Pain severity has decreased from 5-6/10 during ER visit to 4- 5/10 currently. Constipation may exacerbate pain, as stool softeners have provided some relief. Differential diagnosis includes neuropathic pain; IBS is less likely as it typically presents with more diffuse pain but cannot be excluded as an exacerbating factor but it appears even when better she still has chronic RLQ abdominal pain - Follow up with gynecological surgeon on January 01 to discuss potential adhesions and surgical history. - Consider nerve medications if pain persists after consultation with surgeon. - Continue use of stool softeners as needed for constipation. Right ovary was removed for large ovarian cyst, in 1993 More recently has had bladder sling surgery by urogynecology Assessment & Plan (12/19/2018 11:57 AM CDT): Upon palpation, this pain appears to be in more right pelvic region. 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 Colonoscopy done last year and CT done earlier this year was unremarkable. I don't think this is a GI issue. This may be due to neuropathic pain but patient is going to follow up with her grout worker surgeon to rule out any other causes. I will follow-up on this at the next appointment. Chronic idiopathic constipation 12/19/2018 Assessment & Plan (06/09/2020 3:45 PM 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 PROFESSOR): Start Linzess 72 micro g daily. Continue to use Dulcolax suppositories as needed. Follow-up in 3 months. Assessment & Plan (03/22/2020 11:42 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): -Start on Benefiber daily. Can do half dose for a few weeks if more bloating/gas occurs and slowly work to full dose. -Increase fiber intake through foods. -Can use stool softeners prn with fiber. Assessment & Plan (01/15/2020 9:24 AM CDT): Pt goes every couple of days and usually having harder stools. She says she uses dulcolax prn or eat cauliflower which helps bowels move. Assessment & Plan (12/19/2018 11:55 AM CDT): This has improved. Pt started eating cheerios at night and says this has helped with BM's. She has a normal BM daily. Does see small amount of bright red blood on toilet paper occassionally. Last colonoscopy showed ext/int hemorrhoids. Informed patient that she may use prep-H OTC if hemorrhoids are bothersome. Non-alcoholic fatty liver disease 11/11/2018 Overview (12/02/2024): Following with GI Assessment & Plan (12/02/2024 1:06 PM CDT): - Establishing follows with Gastroenterology - Has known obesity - Has testing fibro test-active test ordered by Gastroenterology to be done in few months Lab Results Component Value Date ALT 11 04/24/2024 AST 16 04/24/2024 ALKPHOS 82 04/24/2024 BILITOT 1.6 (H) 04/24/2024 Assessment & Plan (06/09/2020 3:42 PM 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 PROFESSOR): Discussed with the patient diet and exercise and taking fish oil supplements. Assessment & Plan (03/22/2020 10:18 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): -Restart fish oil daily. -Continue to work on healthier diet, exercise, and weight loss. Assessment & Plan (01/15/2020 9:27 AM CDT): Have had discussion with patient in the past about presence of fatty liver. Discussed importance of weight loss and exercise. She takes a fish oil supplement daily. Assessment & Plan (12/19/2018 11:57 AM CDT): Taking fish oil daily and patient believes this is helping. She wants to avoid taking gabapentin if possible. Pt says the pain is occasional and doesn't get in the way of ADL's. Continue fish oil and continue working on weight loss/diet. Will get CMP to assess LFT's. Pt last had these done last year and they were normal. Assessment & Plan (11/18/2018 12:15 PM CDT): Pt instructed to take fish oil at last appointment; however, has not started this due to size of pills. She is trying to find smaller fish oil pills. Advised to begin taking this. Discussed importance of diet and exercise to help in resolution of fatty liver. Assessment & Plan (11/11/2018 11:50 AM CDT): Fatty liver changes noted on CT scan imaging. Her liver enzymes has been normal in 2018. Discussed with the patient diet and weight loss. The no further evaluation is needed at this time. Discussed with the patient to start the fish oil supplements and regular exercising. Chronic sinusitis 04/06/2016 Assessment & Plan (06/23/2024 9:35 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): -Chronic, not at goal- patient reports a current sinus infection -Patient reports she is taking a 10 day course of cefdinir as prescribed by Dr. Ritter ENT -Continue follow up with the ENT Assessment & Plan (03/06/2018 1:24 PM CDT): Acute on Chronic Sinusitis-CT confirm chronic sinusitis in July 2016 Complete antibiotics and other meds as prescribed Take OTC decongestants for congestion- Sudafed/Mucinex Motrin/Tylenol for pain/fever If you have high blood pressure or any kidney disease use Tylenol only. Take an Antihistamines like Zyrtec or Claritin or Pretty daily at bedtime for the next 2-3 weeks. Can take Benadryl at bedtime for the next 3-4 days for immediate relief of runny nose and may help with sinus headache. Try saline nasal spray irrigations 2-4 times a day or try using [place]ney pot as directed daily then use your Flonase or other corticosteroid nasal spray every day to decrease the swelling and inflammation in your nasal cavities. Drink plenty of water & get plenty of rest A humidifier may also help with congestion Follow up with your PCP in 3-5 days if you are not getting better Mixed hyperlipidemia 02/19/2016 Assessment & Plan (12/02/2024 9:46 AM CDT): - chronic, well controlled - has hx of hyperlipidemia and prediabetes, Carotid artery stenosis - asymptomatic - currently on Lipitor 40 mg which since 09/2020 - goal LDL <100 The current medical regimen is effective; continue present plan and medications. Lab Results Component Value Date LDLCALC 69 11/26/2024 LDLCALC 70 07/25/2024 LDLCALC 72 08/24/2023 LDL 67 05/02/2016 The ASCVD Risk score (Castillo LA, et al., 2019) failed to calculate for the following reasons: Risk score cannot be calculated because patient has a medical history suggesting prior/existing ASCVD Assessment & Plan (06/17/2024 11:21 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): - chronic, well controlled - has hx of hyperlipidemia and prediabetes - currently on Lipitor 40 mg which since 09/2020 - goal LDL <100 - due for recheck, order placed The current medical regimen is effective; continue present plan and medications. Lab Results Component Value Date LDLCALC 72 08/24/2023 LDLCALC 90 11/24/2022 LDLCALC 64 07/26/2022 LDL 67 05/02/2016 The ASCVD Risk score (Castillo LA, et al., 2019) failed to calculate for the following reasons: Risk score cannot be calculated because patient has a medical history suggesting prior/existing ASCVD Assessment & Plan (08/23/2023 2:45 PM CDT): - chronic, well controlled - has hx of hyperlipidemia and prediabetes - currently on Lipitor 40 mg which since 09/2020 - goal LDL <100 - continue current therapy - recheck labs, order placed Lab Results Component Value Date LDLCALC 90 11/24/2022 LDLCALC 64 07/26/2022 LDLCALC 71 10/18/2021 LDL 67 05/02/2016 The ASCVD Risk score (Castillo LA, et al., 2019) failed to calculate for the following reasons: The patient has a prior [place] or stroke diagnosis Assessment & Plan (04/23/2023 4:14 PM 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 PROFESSOR): - chronic, well controlled - has hx of hyperlipidemia and prediabetes - currently on Lipitor 40 mg which since 09/2020 - goal LDL <100 - continue current therapy, refill provided Lab Results Component Value Date LDLCALC 90 11/24/2022 LDLCALC 64 07/26/2022 LDLCALC 71 10/18/2021 LDL 67 05/02/2016 The ASCVD Risk score (Castillo LA, et al., 2019) failed to calculate for the following reasons: The patient has a prior [place] or stroke diagnosis Assessment & Plan (02/20/2023 1:48 PM CDT): - chronic, well controlled - has hx of hyperlipidemia and prediabetes - currently on Lipitor 40 mg which since 09/2020 - goal LDL <100 - continue current therapy Lab Results Component Value Date LDLCALC 90 11/24/2022 LDLCALC 64 07/26/2022 LDLCALC 71 10/18/2021 LDL 67 05/02/2016 The 10-year ASCVD risk score (Castillo LA, et al., 2019) is: 22.2% Values used to calculate the score: Age: 67 years Sex: Female Is Non- : No Diabetic: Yes Tobacco smoker: No Systolic Blood Pressure: 156 mmHg Is BP treated: No HDL Cholesterol: 42 mg/dL Total Cholesterol: 161 mg/dL Assessment & Plan (11/30/2022 1:20 PM CDT): - chronic, well controlled - has hx of hyperlipidemia and prediabetes - currently on Lipitor 40 mg which since 09/2020 - goal LDL <100 - continue current therapy Lab Results Component Value Date LDLCALC 90 11/24/2022 LDLCALC 64 07/26/2022 LDLCALC 71 10/18/2021 LDL 67 05/02/2016 The 10-year ASCVD risk score (Castillo LA, et al., 2019) is: 9.3% Values used to calculate the score: Age: 67 years Sex: Female Is Non- : No Diabetic: No Tobacco smoker: No Systolic Blood Pressure: 116 mmHg Is BP treated: Yes HDL Cholesterol: 42 mg/dL Total Cholesterol: 161 mg/dL Assessment & Plan (10/12/2022 2:23 PM CDT): - chronic, well controlled - has hx of hyperlipidemia and prediabetes - currently on Lipitor 40 mg which since 09/2020 - goal LDL <100 - continue current therapy Lab Results Component Value Date LDLCALC 64 07/26/2022 LDLCALC 71 10/18/2021 LDLCALC 68 04/08/2021 LDL 67 05/02/2016 The 10-year ASCVD risk score (Castillo LA, et al., 2019) is: 6.1% Values used to calculate the score: Age: 66 years Sex: Female Is Non- : No Diabetic: No Tobacco smoker: No Systolic Blood Pressure: 120 mmHg Is BP treated: No HDL Cholesterol: 53 mg/dL Total Cholesterol: 147 mg/dL Assessment & Plan (07/16/2022 4:50 PM 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 PROFESSOR): - chronic, well controlled - has hx of hyperlipidemia and prediabetes - currently on Lipitor 40 mg which since 09/2020 - goal LDL <100 - continue current therapy Lab Results Component Value Date LDLCALC 71 10/18/2021 LDLCALC 68 04/08/2021 LDLCALC 76 12/02/2020 LDL 67 05/02/2016 The 10-year ASCVD risk score (Castillo LA, et al., 2019) is: 5.9% Values used to calculate the score: Age: 66 years Sex: Female Is Non- : No Diabetic: No Tobacco smoker: No Systolic Blood Pressure: 120 mmHg Is BP treated: No HDL Cholesterol: 60 mg/dL Total Cholesterol: 149 mg/dL Assessment & Plan (02/28/2022 1:41 PM CDT): - chronic, well controlled - has hx of hyperlipidemia and prediabetes - currently on Lipitor 40 mg which was started 09/2020 - goal LDL <100 - due for recheck, order placed - continue current therapy Lab Results Component Value Date LDLCALC 71 10/18/2021 The 10-year ASCVD risk score (Castillo LA, et al., 2019) is: 13.1% Values used to calculate the score: Age: 66 years Sex: Female Is Non- : No Diabetic: Yes Tobacco smoker: No Systolic Blood Pressure: 131 mmHg Is BP treated: No HDL Cholesterol: 60 mg/dL Total Cholesterol: 149 mg/dL Assessment & Plan (10/18/2021 4:42 PM CDT): - chronic, well controlled - has hx of hyperlipidemia and prediabetes - currently on Lipitor 40 mg which was started 09/2020 - goal LDL <100 - due for recheck, order placed - continue current therapy Lab Results Component Value Date LDLCALC 68 04/08/2021 The 10-year ASCVD risk score (Christal SEALS Jr. et al., 2013) is: 11.4% Values used to calculate the score: Age: 65 years Sex: Female Is Non- : No Diabetic: Yes Tobacco smoker: No Systolic Blood Pressure: 128 mmHg Is BP treated: No HDL Cholesterol: 53 mg/dL Total Cholesterol: 143 mg/dL Assessment & Plan (12/02/2020 8:59 AM CDT): - hx of hyperlipidemia and prediabetes - currently on Lipitor 40 mg which was started 09/2020 Lab Results Component Value Date LDLCALC 169 (H) 09/22/2020 - goal LDL <100 - recheck in 3 months since last blood work Assessment & Plan (11/28/2020 11:21 PM CDT): - hx of hyperlipidemia - will check lipid panel Assessment & Plan (07/10/2018 6:19 PM 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 PROFESSOR): Lipid abnormalities are unchanged. Pharmacotherapy as ordered. Lipids will be reassessed in 6 months. Sensorineural hearing loss (SNHL) of left ear Assessment & Plan (11/28/2020 11:34 PM CDT): - in 2006 - she had sudden hearing loss of left ear Lichen simplex chronicus 06/06/2010 Assessment & Plan (04/20/2021 12:04 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): - recent diagnosis, not at goal - following at vulvar clinic - aware of vulvar care recommendations - advised to use olive oil, vegetable shortening - she is also on Nystatin/Traimcinolone ointment daily and then to do every other day until followed uo - continue with current care Symptomatic menopausal or female climacteric sta lisa 06/06/2010 Overview (12/02/2024): Dr. Vaughn Gynecology Assessment & Plan (12/02/2024 9:55 AM CDT): - currently on Estradiol patches - uses 1 patch a week, managed by Gynecology Dr. Vaughn - started around after hysterectomy and right oophorectomy due to large ovarian cyst - has helped her with her postmenopausal symptoms The current medical regimen is effective; continue present plan and medications. 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 - US Thyroid 04/2021: IMPRESSION: Diffusely heterogeneous thyroid with diffusely increased vascularity. Recommend correlation with thyroid function studies. No discrete nodule identified. 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 - US Thyroid 04/2021: IMPRESSION: Diffusely heterogeneous thyroid with diffusely increased vascularity. Recommend correlation with thyroid function studies. No discrete nodule identified. 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 Recommend correlation with thyroid function studies. No discrete nodule identified. 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 Recommend correlation with thyroid function studies. No discrete nodule identified. 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 Recommend correlation with thyroid function studies. No discrete nodule identified. 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 Recommend correlation with thyroid function studies. No discrete nodule identified. 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 Recommend correlation with thyroid function studies. No discrete nodule identified. 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 Recommend correlation with thyroid function studies. No discrete nodule identified. 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 Recommend correlation with thyroid function studies. No discrete nodule identified. - currently on Levothyroxine 112 mcg daily - most recent TSH as shown below - continue with current therapy Lab Results Component Value Date TSH 1.17 10/18/2021 Assessment & Plan (10/18/2021 4:44 PM CDT): - chronic condition, over 15 years - hx of ibrahima thyroiditis - reports that she was told she had multiple nodules on her thyroid gland - US Thyroid 04/2021: IMPRESSION: Diffusely heterogeneous thyroid with diffusely increased vascularity. Recommend correlation with thyroid function studies. No discrete nodule identified. - currently on Levothyroxine 112 mcg daily - has been doing well on the medication - most recent TSH as shown below, due for recheck, order placed - continue with current therapy Lab Results Component Value Date TSH 0.43 04/08/2021 Assessment & Plan (07/18/2021 1:21 PM 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 PROFESSOR): - chronic condition, over 15 years - hx of ibrahima thyroiditis - currently on Levothyroxine 112 mcg daily - has been doing well on the medication - recheck TSH, updated result shown below - continue with current therapy Lab Results Component Value Date TSH 0.43 04/08/2021 - reports that she was told she had multiple nodules on her thyroid gland - US Thyroid 04/2021: IMPRESSION: Diffusely heterogeneous thyroid with diffusely increased vascularity. Recommend correlation with thyroid function studies. No discrete nodule identified. Assessment & Plan (07/11/2021 11:23 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): This is a chronic condition which is stable, controlled, uncontrolled with hyperglycemia, improving, but not at goal. Goal is for TSH to be between 0.3 to 4.2 mclUnits/ml Personally reviewed lab. Last TSH- 0.43 Continue on Levothryoxine 112 mcg po daily in am Encouraged to take Levothryoxine on a empty stomach. This means one hour before eating or two hours after eating. Food in the stomach will interfere with absorption of Levothyroxine. Calcium, antacids and iron supplements will interfere with the absorption of Levothyroxine. Please take these at a different time of the day. Assessment & Plan (04/19/2021 11:50 PM 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 PROFESSOR): - chronic condition, over 15 years - hx of ibrahima thyroiditis - currently on Levothyroxine 112 mcg daily - has been doing well on the medication - recheck TSH, updated result shown below - continue with current therapy Lab Results Component Value Date TSH 0.43 04/08/2021 - reports that she was told she had multiple nodules on her thyroid gland, I do not see any US of thyroid in file Assessment & Plan (11/28/2020 11:32 PM CDT): - chronic condition, over 15 years - hx of ibrahima thyroiditis - currently on Levothyroxine 112 - has been doing well on the medication - continue with current therapy Lab Results Component Value Date TSH 1.10 09/22/2020 - reports that she was told she had multiple nodules on her thyroid gland??? Will check US of thyroid in records Assessment & Plan (01/15/2020 5:20 PM CDT): Reviewed med SE & scheduling. Reviewed sxs hypo/hyperthyroidism. No changes at this time. Assessment & Plan (09/11/2018 1:56 PM CDT): Will recheck TSH Pt. To follow up with [facility] Strategic Planning Reinforced with patient to take medication 1st thing in the morning on an empty stomach without other food or medicines. Assessment & Plan (07/10/2018 6:20 PM 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 PROFESSOR): Continue Synthroid 112 mcg daily Will recheck TSH Take medications on an empty stomach with no other medications. Assessment & Plan (05/08/2018 5:16 PM 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 PROFESSOR): Increased anxiety Some reports of dizziness Will recheck TSH Stroke Resolved Problems Problem Noted Date Diagnosed Date Resolved Date Abnormal nuclear stress test 01/25/2025 02/04/2025 Superficial fungal infection of skin 07/07/2024 09/30/2024 Acute strain of neck muscle 06/23/2024 09/30/2024 Assessment & Plan (06/23/2024 9:35 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): -Acute, improving, but not at goal -Recent ED visit -Continue on ibuprofen 800 mg 3 times daily as needed- patient reports taking this once day. Advised to take with food and drink plenty of water -Continue on methocarbamol 500 mg 3 times daily as needed- patient reports she has not yet taken this -Start on lidocaine 5% 1 patch daily as needed for pain -Recommend ice and heat -If worsening or not improving, may need to obtain an x-ray of the right clavicle -Follow up if not improving Fall 06/23/2024 09/30/2024 Assessment & Plan (06/23/2024 9:35 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): -Acute, improving, but not at goal -Recent ED visit -Continue on ibuprofen 800 mg 3 times daily as needed- patient reports taking this once day. Advised to take with food and drink plenty of water -Continue on methocarbamol 500 mg 3 times daily as needed- patient reports she has not yet taken this -Start on lidocaine 5% 1 patch daily as needed for pain -Recommend ice and heat -If worsening or not improving, may need to obtain an x-ray of the right clavicle and/or right elbow -Follow up if not improving Right elbow pain 06/23/2024 09/30/2024 Assessment & Plan (06/23/2024 9:34 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): -Acute, improving, but not at goal -Continue on ibuprofen 800 mg 3 times daily as needed- patient reports taking this once day. Advised to take with food and drink plenty of water -Continue on methocarbamol 500 mg 3 times daily as needed- patient reports she has not yet taken this -Start on lidocaine 5% 1 patch daily as needed for pain -Recommend ice and heat -If worsening or not improving, may need to obtain an x-ray of the right elbow -Follow up if not improving Abrasion of left arm 06/23/2024 Assessment & Plan (06/23/2024 9:38 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): -Acute, improving but not at goal -Advised patient to keep the areas clean and dry -Advised to avoid bandages since it appeared to irritate her skin -Patient reports she has been using Bactroban at home. Continue current therapy -Follow up if not improving Acute recurrent maxillary sinusitis 06/05/2024 09/30/2024 Assessment & Plan (06/05/2024 1:09 PM 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 PROFESSOR): Nasal saline spray (Simply saline, [employer] [place], [place], [place]) 2 second sprays or 2 squeezes into each nostril while looking down over the sink, do not need to sniff in. Follow up by vUaldo (azelastine) 1 sprays into each nostril while looking down over the sink, do not sniff in or blow nose after use for at least 30 minutes twice daily Cefdinir twice daily for 14 days Medicare annual wellness visit, subsequent 12/03/2023 04/13/2024 Microscopic hematuria 12/03/20232024 Overview (12/04/2023): Microscopic analysis - no blood 11/2023 Assessment & Plan (12/03/2023 2:27 PM CDT): - trace blood on urine test - check Microscopic urinalysis, order placed Results for orders placed or performed in visit on 12/03/23 POCT urinalysis dipstick Result Value Ref Range Color, Urine, POC Dark Yellow Clarity, ur, POC Cloudy (A) Clear Glucose, ur, POC Negative Negative MG/DL Bilirubin, ur, POC Negative Negative, Small, Moderate, Large Ketones, ur, POC Negative Negative Specific [place], POC 1.020 1.003 - 1.030 Blood, ur, POC Trace (A) Negative pH, ur, POC 5.5 5.0 - 8.0 Protein, ur, POC Negative Negative Urobilinogen, urine, POC 0.2 0.2 - 1.0 mg/dL Nitrite, ur, POC Negative Negative Leukocytes, ur, POC Negative Negative Lot Number [id number] Visit for suture removal 10/01/2023 Dog bite of right hand 09/14/202304/13 Assessment & Plan (10/01/2023 8:04 PM CDT): -sustained on 09/13 -laceration repair with 3 sutures -patient given antibiotic therapy including Augmentin and mupirocin cream -healing adequately -sutures removed today, patient tolerated well -instructed patient on proper wound care Generalized osteoarthritis of hand 07/27/2023 06/17/2024 Nipple tenderness 04/05/2023 09/30/2024 Assessment & Plan (04/05/2023 1:47 PM 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 PROFESSOR): Will obtain bilateral diagnostic mammogram and ultrasound. No abnormalities palpated on exam Headache 01/15/2023 10/01/2023 Hypoglycemia 01/03/2023 09/30/2024 Assessment & Plan (07/27/2023 11:02 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): -chronic, not at goal- A1c under 7%, but patient reports hypoglycemic symptoms -refer to Dr. Ocampo endocrinology for second opinion per patient request -follow up with PCP as scheduled Lab Results Component Value Date HGBA1C 6.8 07/24/2023 Assessment & Plan (01/03/2023 4:09 PM CDT): Reports hypoglycemic symptoms including tremulousness but we do not have any official documentation of hypoglycemia with a glucose of < 55 mg/dl so I cannot officially render a diagnosis. She does have T2DM with an A1c of 6.5% in the past at one point. I recommended she start the acarbose which can normalize her glucoses - preventing highs and preventing lows. She will continue with small frequent meals. We will try to get a CGM covered but this may be challenging in the absence of documented hypoglycemia. Acute left ankle pain 12/07/20222022 Assessment & Plan (12/07/2022 10:21 PM CDT): Xrays ordered. Ibuprofen prn pain. Right sided numbness 11/23/2022 025 Viral upper respiratory infection 09/15/2022 10/12/2022 Assessment & Plan (09/15/2022 12:52 PM CDT): -improving -advised patient that she is well enough to have her teeth pulled next week -follow up if symptoms return -recommend OTC Zyrtec/Claritin daily and Flonase to help clear up the fluid in her ears Palpitations 08/21/2022 09/30/2024 Internal hemorrhoids 04/19/2022 025 LUQ pain 03/14/2022 02/20/2023 Gastroesophageal reflux dise ase without esophagitis 01/10/2022 07/05/2022 Irregular bowel habits 01/10/202209/30 Chest pain 08/05/2021 02/28/2022 Internal hemorrhoid 08/04/2021 02/29/20 External hemorrhoid 08/04/2021 10/01/19 25 Encounter for screening colonoscopy 08/04/2021 05/12/2022 Overview (08/04/2021): Added automatically from request for surgery [id number] RUQ pain 08/04/2021 02/20/2023 Overview (01/10/2022): Added automatically from request for surgery [id number] Internal hemorrhoid, bleeding 05/06/2021 05/12/2022 Low bone mass 02/02/2021 02/20/2023 Assessment & Plan (02/17/2021 4:28 AM CDT): - new diagnosis, noted on 02/08 Ap lumbar spine T score 1.7, Left Hip T score 0, femoral neck T score -0.2 - very mild condition as shown above on bone density testing - low bone mass over femoral neck - start vitamin D and calcium supplements which has already been prescribed - if constipating which has been an issue for her with calcium in the past, at least take vitamin D RUQ pain 11/24/2020 07/18/2021 Blood in stool 11/24/2020 02/28/2022 Rectal bleeding 11/24/2020 07/16/2022 Left eye pain 11/05/2020 02/28/2022 Sprain of anterior talofibul ar ligament of left ankle 10/19/2020 07/18/2021 Neck pain 09/06/2020 10/01/2023 Assessment & Plan (04/11/2021 12:04 PM 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 PROFESSOR): Referral physical therapy for neck and jaw pain Talk to Dentist regarding overnight mouth guard or other solution Continue soft diet Assessment & Plan (09/06/2020 6:04 PM CDT): Physical therapy of neck pain Continue to take Dentures out at night TMJ discussed and Handout provided Referral to Head and Neck for 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 She has chronic left leg numbness that she has intermittently. No prior imaging that I can access, obtain XR of lumbar spine, order placed with result as shown below XR Lumbar spine 03/12 FINDINGS: Five views of the lumbar spine are submitted for interpretation. Comparison is made to CT 09/25/2021 and lumbar spine radiographs 11/11/2020. Mild L1-L2 and L5-S1 retrolisthesis. No compression fracture. Mild multilevel lumbar spine degenerative disc disease. Mild multilevel lumbar spine facet osteoarthritis is present. Right upper quadrant clips are present. IMPRESSION: 1. Mild L1-L2 and L5-S1 retrolisthesis with mild multilevel facet osteoarthritis. 2. Mild multilevel lumbar spine degenerative disc disease Assessment & Plan (11/28/2020 11:33 PM CDT): Hx of back surgery in 2013, L4-L5 diskectomy. She has chronic left leg numbness that she has intermittently. Left sided abdominal pain 03/22/2020 Assessment & Plan (03/22/2020 11:44 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): -Previously occurring on right side, now complaints on left that seem to be related to when her constipation worsens. -Likely related to constipation issues. I suspect patient has some IBS given past negative colonoscopy and negative CT. Heartburn 01/15/2020 03/22/2020 Assessment & Plan (01/15/2020 9:23 AM CDT): Pt on omeprazole daily. She gets breakthrough symptoms occasionally but overall well controlled on this regimen. Encounter for osteoporosis s creening in asymptomatic postmenopausal patient 01/15/202010/20 Assessment & Plan (01/15/2020 5:22 PM CDT): DEXA ordered. Will contact with results once received. Primary hypertension 11/25/2019 025 Assessment & Plan (12/03/2023 12:39 PM CDT): BP Readings from Last 3 Encounters: 12/03/23 130/70 11/23/23 152/69 10/01/23 144/82 - doing well at this time - currently not on medications - never been on medications for this before - continue to monitor with lifestyle control - if she continues to do so well, will remove this problem list from active problems - has risk factors - obesity Assessment & Plan (02/17/2021 4:26 AM CDT): - doing well at this time - currently not on medications - never been on medications for this before - continue to monitor with lifestyle control - if she continues to do so well, will remove this problem list from active problems - has risk factors - obesity Assessment & Plan (12/02/2020 9:02 AM CDT): - doing well at this time - currently not on medications - never been on medications for this before - continue to monitor with lifestyle control Assessment & Plan (11/28/2020 11:23 PM CDT): - not controlled - currently not on medications - she used to be on medications at some point - will need to repeat measurements and start her on medication on second visit Assessment & Plan (11/25/2019 10:48 AM CDT): Blood pressure elevated, may be some of her neurologic symptoms. Will add Losartan to medication regimen Localized edema 11/25/2019 10/18/2021 Assessment & Plan (11/25/2019 10:49 AM CDT): Will add low dose lasix for fluid management Cellulitis of chest wall 10/09/2019 Hyperglycemia 07/01/2019 11/28/2020 Blindness temporary, left 07/01/2019 Overview (07/01/2019): Intermittent flashes with blindness in left eye Dental abscess 04/25/2019 01/15/2020 Assessment & Plan (04/25/2019 8:33 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): Doxycycline with a meal twice daily for 10 days, call if no improvement. Viral upper respiratory tract infection 02/12/2019 09/15/2022 Assessment & Plan (02/12/2019 12:55 PM CDT): Cannot take antihistamines d/t dry mouth already. Will continue neti pot at home. Discussed saline nasal spray. Will f/u w/ENT if no improvement. Discussed good hand hygiene. Lymphadenopathy of left cervical region 11/28/2018 01/15/2020 Lower abdominal pain 11/11/2018 020 Assessment & Plan (11/11/2018 11:47 AM CDT): Patient has chronic functional or neuropathic lower abdominal pain. She is doing well at this time. Workup and evaluation has been unremarkable. No further evaluation is needed Right upper quadrant abdominal pain 11/11/2018 03/22/2020 Assessment & Plan (01/15/2020 9:26 AM CDT): Pain started about 3 weeks ago after she got up from sitting. She says she felt a sharp pain in RUQ which continued. She says the pain comes and goes and is sore/sharp. She hasn't been able to correlate the pain with food or BM's, although she did find relief of the pain once with BM. Nothing makes the pain better or worse when it occurs. She does not have her gallbladder and has fatty liver. Pt had recent labs which showed mild elevation of bilirubin. She denies tea colored urine or jaundice. No fevers. Will get CT with contrast to rule out biliary stones or other process causing pain. Assessment & Plan (11/18/2018 12:16 PM CDT): Pt had workup done with unremarkable results. Likely secondary to fatty liver vs. muscular pain. Will start on gabapentin 100mg BID and f/u in 1 month. Assessment & Plan (11/11/2018 11:50 AM CDT): This pain is mild and likely secondary to the fatty liver disease. No worrisome signs. No further workup is needed. Acute otalgia, left 09/24/2018 10/01/19 Assessment & Plan (04/11/2021 12:05 PM 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 PROFESSOR): Referral physical therapy for neck and jaw pain Talk to Dentist regarding overnight mouth guard or other solution Continue soft diet Assessment & Plan (06/12/2019 12:10 PM 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 PROFESSOR): TMJ dysfunction discussed and Handout provided Assessment & Plan (04/24/2019 4:12 PM 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 PROFESSOR): Suspect Inflammation in the neck muscles and Temporal mandibular joint causing throbbing sound. Certainly a vascular component possible as well. Doxycycline with a meal twice daily for 10 days, call if no improvement. Keep Cardiology appointment TMJ dysfunction discussed and Handout provided Herpes zoster without complication 09/11/2018 11/28/2020 Assessment & Plan (09/11/2018 1:58 PM CDT): Patient with recurrent rash to her buttocks. This has been intermittent over the last year or so. It seems to appear when she is having more stress in her life. She reports that usually she has a burning tingling sensation prior to the blisters erupting. Will have her try Valtrex. Also gave her refills to start taking if she starts feeling the rash coming back. Patient is to see a sealer sander next month. Bronchitis 07/24/2018 01/15/2020 Assessment & Plan (07/24/2018 3:15 PM 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 PROFESSOR): Take your antibiotic as directed You may take a cough suppressant to calm your cough (dayquil, delsym, or nyquil) If your cough is productive or you have tight chest congestion with thick mucus- you can use a cough expectorant like Mucinex Benadryl/Zyrtec can be used to dry up a runny nose along with a nasal spray like azelastine or mometasone.. The use of Chlorpheniramine (antihistamine) plus pseudoephedrine (decongestant) has been proven to be helpful. Avoid environmental triggers and allergen Drink plenty of fluids and get plenty of rest Tylenol/Motrin for pain/fever If you are not better in the next 5 days, follow up w PCP. Eye problem 07/10/2018 01/15/2020 Assessment & Plan (07/10/2018 6:27 PM 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 PROFESSOR): Patient reports history of floaters. Patient reports increased pressure in her eyes as reported to her by the excellence consultant. Reports some new flashes in her right eye that happened couple times over the last couple days. Recommend that patient follow up with her cardiac exercise specialist Refused influenza vaccine 05/08/2018 Assessment & Plan (01/15/2020 5:19 PM CDT): Discussed and the patient refuses immunization today. Educated regarding the need to vaccinate for personal protection and to limit the viruses in the community to protect those most vulnerable. Otitis media 05/08/2018 02/20/2023 Assessment & Plan (11/09/2022 2:09 PM CDT): -not improving -patient completed ordered Z-Jamison -given patient's allergy to penicillin, doxycycline has been ordered. Patient reports doxycycline made her feel tired in the past, so an adjusted course has been ordered. Start on doxycycline 100 mg daily for 5 days. Advised patient to take with food to avoid stomach upset -start on OTC saline nasal spray 10 minutes prior to OTC Flonase 2 puffs per nostril daily -follow up in 1 week. If not improved at that time, we will refer to ENT Assessment & Plan (05/08/2018 5:10 PM 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 PROFESSOR): Try Flonase nasal spray and Zyrtec Breast pain 03/06/2018 06/03/2018 Assessment & Plan (03/06/2018 1:21 PM CDT): Reports intermittent breast pain-very concerning to patient Pain is sharp Denies nipple drainage, lumps, redness, swelling, no fever or chills Recent Mammogram 11/2017 normal-IMPRESSION: 1. NO DEFINITIVE MAMMOGRAPHIC EVIDENCE OF MALIGNANCY 2. ANNUAL FOLLOW-UP RECOMMENDED Will check CBC To see if any possible infection BMI 38.0-38.9,adult 03/06/2018 06/24/20 21 Assessment & Plan (01/15/2020 5:21 PM CDT): Reviewed need to lose weight, reviewed health benefits. Reviewed recommendations for daily intake & activity 20-30 minutes/day. Discussed healthy diet and importance of regular physical activity. Assessment & Plan (09/11/2018 1:55 PM CDT): Obesity is unchanged. Discussed the patient's BMI. The BMI is above average; BMI management plan is completed. General weight loss/lifestyle modification strategies discussed (elicit support from others; identify saboteurs; non-food rewards, etc). Diet= low-carb Limit white bread, rice, pasta, potatoes, juice, energy drinks, coffee creamers with sugar, sugar sodas, candy, cake, cookies, ice cream. Be more careful with starchy vegetables like corn, carrots, and fruits. Stay away from processed foods, fast foods, fried foods. The cornerstone of this diet is lean grilled meats, green salads or cooked greens, fat-free milk, cottage cheese, nuts like [id number], protein bars with 10-15 g of protein and 20-30 g of carbohydrate. Choose whole grain breads and pastas, brown rice, sweet potatoes, read onions--these whole grains absorb more slowly thus blood sugar does not surge so high so quickly. Avoid drinking juice, eat a piece of fruit instead. Assessment & Plan (07/24/2018 3:14 PM 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 PROFESSOR): Obesity is unchanged. Discussed the patient's BMI. The BMI is above average; BMI management plan is completed. General weight loss/lifestyle modification strategies discussed (elicit support from others; identify saboteurs; non-food rewards, etc). Diet= low-carb Limit white bread, rice, pasta, potatoes, juice, energy drinks, coffee creamers with sugar, sugar sodas, candy, cake, cookies, ice cream. Be more careful with starchy vegetables like corn, carrots, and fruits. Stay away from processed foods, fast foods, fried foods. The cornerstone of this diet is lean grilled meats, green salads or cooked greens, fat-free milk, cottage cheese, nuts like [id number], protein bars with 10-15 g of protein and 20-30 g of carbohydrate. Choose whole grain breads and pastas, brown rice, sweet potatoes, read onions--these whole grains absorb more slowly thus blood sugar does not surge so high so quickly. Avoid drinking juice, eat a piece of fruit instead. Assessment & Plan (07/10/2018 6:19 PM 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 PROFESSOR): Obesity is unchanged. Discussed the patient's BMI. The BMI is above average; BMI management plan is completed. General weight loss/lifestyle modification strategies discussed (elicit support from others; identify saboteurs; non-food rewards, etc). Diet= low-carb Limit white bread, rice, pasta, potatoes, juice, energy drinks, coffee creamers with sugar, sugar sodas, candy, cake, cookies, ice cream. Be more careful with starchy vegetables like corn, carrots, and fruits. Stay away from processed foods, fast foods, fried foods. The cornerstone of this diet is lean grilled meats, green salads or cooked greens, fat-free milk, cottage cheese, nuts like njgkgwo-[id number], protein bars with 10-15 g of protein and 20-30 g of carbohydrate. Choose whole grain breads and pastas, brown rice, sweet potatoes, read onions--these whole grains absorb more slowly thus blood sugar does not surge so high so quickly. Avoid drinking juice, eat a piece of fruit instead. 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 Discussed the patient's BMI. The BMI is above average; BMI management plan is completed. General weight loss/lifestyle modification strategies discussed (elicit support from others; identify saboteurs; non-food rewards, etc). Assessment & Plan (03/06/2018 1:11 PM CDT): Obesity is unchanged. Discussed the patient's BMI. The BMI is above average; BMI management plan is completed. General weight loss/lifestyle modification strategies discussed (elicit support from others; identify saboteurs; non-food rewards, etc). Diet= low-carb Limit white bread, rice, pasta, potatoes, juice, energy drinks, coffee creamers with sugar, sugar sodas, candy, cake, cookies, ice cream. Be more careful with starchy vegetables like corn, carrots, and fruits. Stay away from processed foods, fast foods, fried foods. The cornerstone of this diet is lean grilled meats, green salads or cooked greens, fat-free milk, cottage cheese, nuts like yvozjrk-[id number], protein bars with 10-15 g of protein and 20-30 g of carbohydrate. Choose whole grain breads and pastas, brown rice, sweet potatoes, read onions--these whole grains absorb more slowly thus blood sugar does not surge so high so quickly. Avoid drinking juice, eat a piece of fruit instead. Common cold 08/31/2016 06/03/2018 Overview (10/13/2016): Acute nasopharyngitis Hemoptysis 07/31/2016 06/03/2018 Overview (10/13/2016): Hemoptysis Assessment & Plan (03/06/2018 1:30 PM CDT): Pt. With hx of spitting up/coughing up blood in the past. Was worked up by GI in [address] mueller Had upper and lower GI done EGD- Multiple benign appearaning gastric polyps. - Unremarkable upper GI endoscopy otherwise. Needs to F/U with Dr. 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): TSH normal Vocal cord dysfunction 03/29/201606/03 Dysphonia 03/29/2016 06/03/2018 Lumbar radiculopathy 02/09/2015 020 Overview (05/24/2018): Lumbar radiculopathy Overview: Overview: Lumbar radiculopathy Assessment & Plan (09/11/2018 1:59 PM CDT): Continue Estradiol Sudden hearing loss 09/18/2013 06/03/19 19 Colon polyp 12/02/2024 Encounters Date Type Department Care Team Description 02/05/20 3:00 PM CDT Office Visit [facility] Primary Care at [address] [phone] Star Villalobos MD Transition of care (Primary Dx); Epigastric pain; Chest pain, unspecified type; Myofascial pain syndrome of thoracic spine 02/01/20 Results Follow-Up [facility] Gastroenterology at [address] [place] [address] Anjel Guzman MD Surgical pathology 01/29/20 3:05 PM CDT Anesthesia Event [address] [address] Ronaldo Jeter MD McDowell, Juri Osmell, MD 01/29/20 1:30 PM CDT - 01/29/20 25 2:00 PM CDT Surgery [address] [address] Anjel Guzman MD ESOPHAGOGASTRODUODENOSCOPY BIOPSY 01/28/20 12:00 PM CDT - 01/28/20 25 1:05 PM CDT Surgery [facility] Cardiac Catheterization [address] [place] [id number] Kristen Spence MD LEFT HEART CATHETERIZATION WITH CORONARY ANGIOGRAPHY AND WITH OR WITHOUT LEFT VENTRICULOGRAM [id number] 01/27/20 25 Orders Only [facility] Cardiology [address] [place] [id number] Kim Dowling 01/26/20 9:51 PM CDT - 01/29/20 6:24 PM CDT Hospital Encounter [facility] Acute Medicine [address] [place] [address] Karina Gagnon MD Burt, MD Sandy Cervantes Eileen H., MD Abnormal nuclear stress test (Primary Dx); Chest pain, unspecified type; Epigastric pain Discharge Disposition: Discharge to home or self care 01/26/20 3:00 PM CDT Office Visit [facility] Care at [address] [place] [phone] Tanya Da Silva NP Epigastric pain (Primary Dx) 12/11/19 4:00 PM CDT Office Visit [facility] Primary Care at [address] [phone] Star Villalobos MD History of cholecystectomy (Primary Dx); Right lower quadrant abdominal pain; Irritable bowel syndrome with constipation; Non-alcoholic fatty liver disease; Elevated bilirubin 12/06/[address] [address] Michelle Arce MA Medical Question/Miscellaneous (Pt called to make apt, apt made for next week. 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; Asymptomatic bilateral carotid artery stenosis; Class 2 severe obesity due to excess calories with serious comorbidity and body mass index (BMI) of 39.0 to 39.9 in adult (HCC); IRISH (generalized anxiety disorder); Mixed hyperlipidemia; Irritable bowel syndrome with constipation; Ptosis of both eyelids; Prediabetes; Non-alcoholic fatty liver disease; Symptomatic menopausal or female climacteric states; Herpes zoster vaccination declined; Gastroesophageal reflux disease, unspecified whether esophagitis present 12/03/19 25 Telephone [facility] Gastroenterology at [address] [place] [address] [place], MA 11/28/19 Results Follow-Up [facility] Primary Care at [address] [phone] Star Villalobos MD Lipid panel 11/27/19 10:15 AM CDT Lab [address] Hypertriglyceridemia from Last 3 Months Immunizations Immunization Administration Dates Next Due Influenza LAIV (Nasal) 07/25/2023(Deferred: Bharti ent Refused) Influenza, Unspecified 02/04/2025(Deferr ed: Patient Refused),06/23/2024(Deferred: Patient Refused),07/25/2023(Deferred: Patient Refused),02/20/2023(Deferred: Patient Refused),03/09/2022(Deferred: Patient Refused),02/20/2022(Deferred: Patient Refused),02/18/2021(Deferred: Patient Refused),01/19/2021(Deferred: Patient Refused),09/20/2020(Deferred: Patient Refused),09/07/2020(Deferred: Patient Refused),04/28/2020(Deferred: Patient Refused),02/19/2020(Deferred: Patient Refused),01/15/2020(Deferred: Patient Refused),05/21/2019(Deferred: Patient Refused),05/12/2019(Deferred: Patient Refused),02/18/2019(Deferred: Patient Refused),09/11/2018(Deferred: Patient Refused),07/24/2018(Deferred: Patient Refused),07/10/2018(Deferred: Patient Refused),05/24/2018(Deferred: Patient Refused),05/21/2018(Deferred: Patient Refused),05/08/2018(Deferred: Patient Refused),03/06/2018(Deferred: Patient Refused),02/18/2018(Deferred: Patient Refused),11/30/2017(Deferred: Patient Refused),11/01/2017(Deferred: Patient Refused),09/27/2017(Deferred: Patient Refused),05/21/2017(Deferred: Patient Refused),03/20/2017(Deferred: Patient Refused),05/22/2016(Deferred: Patient Refused) Pneumococcal, Unspecified 02/28/2022(Deferred: P atient Refused) Tdap 09/14/2023,08/28/2016 Surgical History Surgery Date Site/Laterality Comments CHOLECYSTECTOMY 05/21/2011 - 05/20/2012 Cholecystectomy DISCECTOMY 05/21/2012 - 05/20/2013 Discectomy BACK SURGERY back surgery TUBAL LIGATION tubal ligation OTHER SURGICAL HISTORY right ovary removed OTHER SURGICAL HISTORY arthritis in hands OTHER SURGICAL HISTORY Blood in urine OTHER SURGICAL HISTORY Left ear had deffness OTHER SURGICAL HISTORY Trouble swallowing OTHER SURGICAL HISTORY Left side pain OTHER SURGICAL HISTORY Knee pain OTHER SURGICAL HISTORY Hair loss OTHER SURGICAL HISTORY Cramping in legs OTHER SURGICAL HISTORY Numbness in left foot n right side OTHER SURGICAL HISTORY Hearnia BACK SURGERY Back surgery OTHER SURGICAL HISTORY Adheshions COLONOSCOPY 03/21/2016 - 04/19/2016 POLYPECTOMY 05/21/2014 - 05/20/2015 UPPER GASTROINTESTINAL ENDOSCOPY 05/21/2016 - 05/20/2017 HYSTERECTOMY OOPHORECTOMY left ovary remain COLONOSCOPY 03/29/2022 OTHER SURGICAL HISTORY In 2008 or 2012 she had bladder sling surgery. At that time she states that her pelvic floor and rectum were rebuilt due to an underlying prolapse. SPINE SURGERY 2008 BLADDER SURGERY ABDOMINAL SURGERY 1992 CARDIAC CATHETERIZATION 01/27/2025 N/A Procedure: LEFT HEART CATHETERIZATION WITH CORONARY ANGIOGRAPHY AND WITH OR WITHOUT LEFT VENTRICULOGRAM [id number]; Surgeon: Kristen Spence MD; Location: [facility]; Service: Cardiovascular; Laterality: N/A; Medical devices from this surgery are in the Medical Devices section. Medical History Medical History Date Comments Hx Other Medical 2009 Bowel, Bladder, Uterus Prolapse repair Osteoarthritis Osteoarthritis Hx Other Medical gerd; Comments: 09/30/2015 - Hx Other Medical abnormal heartb eat; Comments: 09/30/2015 - Depression Depression Hx Other Medical poor circulatio n; Comments: 09/30/2015 - Hx Other Medical back pain; Comm ents: 09/30/2015 - Hx Other Medical neuropathy; Com ments: 09/30/2015 - Disorder of thyroid 2007 Thyroid dise ase Hyperlipidemia 02/2016 Hyperlipidemia PVD (posterior vitreous deta chment), right eye 02/25/2017 GERD (gastroesophageal reflux disease) Hypothyroidism Essential hypertension 11/25/2019 Weight loss Arrhythmia Constipation Hematuria Visual impairment Type 2 diabetes mellitus wit hout complication, without long-term current use of insulin (HCC) Hypoglycemia Colon polyp Stroke (HCC) Kidney stone Pharyngoesophageal dysphagia 01/10/2022 Cataract Internal hemorrhoids 04/19/2022 Microscopic hematuria 12/03/2023 Microscopi c analysis - no blood 11/2023 Family History Medical History Relation Name Comments Hearing loss Daughter Lesli Nevarez Arthritis Maternal Grandmother Janie Dumont Arthritis Mother Karina Ribeiro Breast cancer Mother Karina Ribeiro Cancer Mother Karina Ribeiro Coronary artery disease Mother Karina Ribeiro Husam nary artery disease; Hypertension Mother Karina Ribeiro Hypertension; Stroke Mother Karina Ribeiro Stroke; Hypertension Other 1 Family history of Hypertension; Osteoarthritis Other 2 Family histor y of Osteoarthritis; Osteoporosis Other 3 Family history of Osteoporosis; Stroke Other 4 Family history of Stroke; Seizures Other 5 Family history of Seizure disorder; Heart disease Other 6 Family history of heart problems; Relation Name Status Comments Daughter Lesli Nevarez Father Maternal Grandmother Janie Dumont Mother Karina Ribeiro Other 1 Other 2 Other 3 Other 4 Other 5 Other 6 Social History Tobacco Use Types Packs/Day Years Used Date Smoking Tobacco: Never Smokeless Tobacco: Never Tobacco Cessation:Counseling Given: Not Answered Alcohol Use Standard Drinks/Week Comments No 0 (1 standard drink = 0.6 oz pur e alcohol) AUDIT-C Answer Date Recorded Q1: How often do you have a drink containing alcohol? Never 08/06/2024 Q2: How many drinks containi ng alcohol do you have on a typical day when you are drinking? Patient does not drink Q3: How often do you have si x or more drinks on one occasion? Never 08/06/2024 PHQ-2 Answer Date Recorded PHQ-2 Total Score (If total score is 3 or more points, staff should administer the PHQ-9) 0 02/04/2025 Social Connection and Isolation Panel Answer Date Recorded In a typical week, how many times do you talk on the phone with family, friends, or neighbors? More than three times a week 02/02/2025 How often do you get togethe r with friends or relatives? More than three times a week 02/02/2025 How often do you attend chur ch or rastafari services? Never 02/02/2025 Do you belong to any clubs o r organizations such as holiness groups, unions, fraternal or athletic groups, or school groups? Yes 02/02/2025 How often do you attend meet ings of the clubs or organizations you belong to? More than 4 times per year 02/02/2025 Are you , , di vorced, , never , or living with a partner? 02/02/2025 Overall Financial Resource Strain (CARDIA) Answe r Date Recorded How hard is it for you to pa y for the very basics like food, housing, medical care, and heating? Not very hard 02/02/2025 Hunger Vital Sign Answer Date Recorded Within the past 12 months, y ou worried that your food would run out before you got the money to buy more. Never true 02/03/20 25 Within the past 12 months, t he food you bought just didn't last and you didn't have money to get more. Never true 02/02/2025 PRAPARE - Transportation Answer Date Re corded In the past 12 months, has l ack of transportation kept you from medical appointments or from getting medications? No 01/19 In the past 12 months, has l ack of transportation kept you from meetings, work, or from getting things needed for daily living? No 02/02/2025 Housing Stability Vital Sign Answer Loi e Recorded In the last 12 months, was t here a time when you were not able to pay the mortgage or rent on time? No 02/02/2025 In the past 12 months, how m any times have you moved where you were living? 0 02/02/2025 At any time in the past 12 m [facility], were you homeless or living in a nursing home (including now)? No 02/02/2025 [facility] Utilities Answer Date Recorded In the past 12 months has th [employer] electric, gas, oil, or water company threatened to shut off services in your home? No 02/02/2025 Personal Safety Answer Date Recorded Have you ever been in or are you currently in a harmful physical or emotional relationship or is someone making you feel afraid or unsafe? 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 Gender Identity Female 11/05/2022 9:12 PM CDT Sexual Orientation Straight 11/05/2022 9: 12 PM CDT Obstetrics History Para Term AB IAB SAB Ectopic Multiple Livin g Live Births 3 3 3 Date Outcome GA Total Labor Labor/2nd/3rd Weight Sex Type Anes PTL Franci A1 A5 Name Clin Term Term Term Last Filed Vital Signs Vital Sign Reading Time Taken Comments Blood Pressure 124/82 02/04/2025 2:57 PM CDT Pulse 72 02/04/2025 2:57 PM CDT Temperature 36.8 C (98.2 F) 02/04/2025 2:57 PM CDT Respiratory Rate 16 01/28/2025 3:45 PM CDT Oxygen Saturation 98% 02/04/2025 2:57 PM CDT Inhaled Oxygen Concentration - - Weight 101.3 kg (223 lb 6.4 oz) 02/04/2025 2:57 PM CDT Height 160 cm (5' 3) 02/04/2025 2:57 PM CDT Body Mass Index 39.57 02/04/2025 2:57 PM CDT Plan of Treatment Health Maintenance Due Date Last Done Comments Covid-19 Vaccine ( season) 2025 10/26/2020, 10/05/2020 Influenza Vaccine (#1) 2025 Postp oned from 01/19/2025 (Patient declined, but will receive in the future) Osteoporosis Screening-Bone Density Scan 03/15/2025 03/15/2023, 02/01/2021 Albumin Creatinine Ratio, Urine 06/17/2025 06/17/2024, 01/30/2023 Foot Exam 06/23/2025 06/23/2024, 020 07/2024, 04/05/2023, Additional history exists Hemoglobin A1C 07/26/2025 01/26/2025, 10/19, 11/04/2024, Additional history exists Breast Cancer Screening-Mammogram 08/09/2025 08/09/2024, 05/23/2023, 03/15/2023, Additional history exists Lipid Panel 11/26/2025 11/26/2024, 0 11/2024, 08/24/2023, Additional history exists Well Visit 65+ 12/02/2025 12/02/2024, 11/18, 10/19/2022, Additional history exists eGFR 01/27/2026 01/27/2025, 12/2024, 01/25/2025, Additional history exists Depression Screening 02/04/2026 02/04/2025, 12/10/2024, 12/02/2024, Additional history exists Fall Risk Assessment 02/04/2026 02/04/2025, 01/28/2025, 12/10/2024, Additional history exists Dilated Eye Exam 03/11/2026 03/11/2024, 03/2023, 10/28/2020 Colon Cancer Screening-Colonoscopy 03/29/2028 03/29/2022, 08/28/2017, 04/12/2016, Additional history exists DTaP/Tdap/Td Vaccine (3 - Td or Tdap) 09/13/2033 09/14/2023, 08/28/2016 Hepatitis C Screening Completed 12/02/2020 Colon Cancer Screening-CT Colonography Discontinued 03/29/2022, 08/28/2017, 04/12/2016, Additional history exists Colon Cancer Screening-DNA Stool Discontinued 03/29/2022, 08/28/2017, 04/12/2016, Additional history exists Colon Cancer Screening-FIT Discontinued 03/29, 08/28/2017, 04/12/2016, Additional history exists Colon Cancer Screening-Sigmoidoscopy Discontinued 03/29/2022, 08/28/2017, 04/12/2016, Additional history exists Hepatitis B Screening Completed 08/24/2023 Pneumococcal vaccine 65+ Discontinued Zoster Vaccine Discontinued Goals Goal Patient Goal Type Associated Problems Recent Progress Patient-Stated? Author SERGE[facility] General Goal - Patient schedules and keeps appointments with all recommended providers [facility] Care Management On track(2024 12:39 PM CDT) No Leatha Ramirez, LISA Note: Problem: Potential for medical complications and readmission if follow-up appointments are not scheduled Interventions: - Ensure all follow-up appointments are scheduled, all prescribed medications have been received. - Address any barriers for keeping scheduled appointment. - Coordinate with patient/caregiver(s) to ensure patient is able to keep scheduled appointment. - Emphasize importance of keeping scheduled appointments. - Identify and discuss questions for next provider visit. - Follow up with patient after scheduled appointment(s) to review any new orders or changes made to medication regimen. Medical Devices Implanted Type Area Strainer Tender Device Identifier Shelf Expiration Date Model / Serial / Lot [employer] Prell Angio-Seal Vip 6fr Closere Device [id number] - [id number] Implanted:Qty: 1 on 01/27/2025 by Kristen Spence MD at [facility] [employer] Pre[employer] 08/29/2025 [id number] / / [id number] Procedures Procedure Name Priority Date/Time Associated Diagnosis Comments POCT GLUCOSE DEVICE Routine 01/28/2025 4:32 PM CDT ESOPHAGOGASTRODUODENOSCOPY BIOPSY 01/28/2025 3:00 PM CDT Epigastric pain EGD 01/28/2025 2:04 PM CDT POCT GLUCOSE DEVICE Routine 01/28/2025 1:52 PM CDT POCT GLUCOSE DEVICE Routine 01/28/2025 11:51 AM CDT SURGICAL PATHOLOGY STAT 01/28/2025 10:06 AM CDT Epigastric pain POCT GLUCOSE DEVICE Routine 01/28/2025 7:41 AM CDT POCT GLUCOSE DEVICE Routine 01/28/2025 3:21 AM CDT LEFT HEART CATHETERIZATION W ITH CORONARY ANGIOGRAPHY AND WITH AND WITHOUT LEFT VENTRICULOGRAM Routine 01/27/2025 12:47 PM CDT Abnormal nuclear stress test EGFR Routine 01/27/2025 5:25 AM CDT RENAL FUNCTION PANEL Routine 01/27/2025 5:25 AM CDT CBC WITHOUT DIFFERENTIAL Routine 025 5:[address] ABDOMEN PELVIS WO CONTRAST IP Routine 3:25 PM CDT STRESS TEST FOR DUAL READ IP Routine 2024 1:52 PM CDT NM MPI SPECT (REST AND/OR STRESS) MULTIPLE STUDIES IP Routine 01/26/2025 1:52 PM CDT TRANSTHORACIC ECHO (TTE) COMPLETE W DOPPLER/CF WO CONTRAST Routine 01/26/2025 1:00 PM CDT POCT GLUCOSE DEVICE Routine 01/26/2025 9:40 AM CDT HEMOGLOBIN A1C Add-On 01/26/2025 12:26 AM CDT EGFR Routine 01/26/2025 12:26 AM CDT DIFFERENTIAL AUTO Routine 01/26/2025 12:26 AM CDT CBC WITH AUTO DIFFERENTIAL Routine 01/26 12:26 AM CDT MAGNESIUM Routine 01/26/2025 12:26 AM CDT COMPREHENSIVE METABOLIC PANEL Routine 12:26 AM CDT TROPONIN T HIGH-SENSITIVITY 6-HOUR Timed 01/26/2025 12:26 AM CDT LIPASE Add-On 01/25/2025 10:39 PM CDT TROPONIN T HIGH-SENSITIVITY 4-HR Timed 01/25/2025 10:39 PM CDT TROPONIN T HIGH-SENSITIVITY 2-HOUR Timed 01/25/2025 8:[address] CHEST PE W CONTRAST ED 7:47 PM CDT XR CHEST PA LATERAL 2 VIEWS ED 11/2024 6:18 PM CDT URINALYSIS, MICROSCOPIC ONLY STAT 11/2024 6:09 PM CDT URINALYSIS AND REFLEX TO MICROSCOPIC AND CULTURE STAT 01/25/2025 6:09 PM CDT ELECTROCARDIOGRAM REPORT Routine 025 6:01 PM CDT Epigastric pain EGFR STAT 01/25/2025 6:01 PM CDT DIFFERENTIAL AUTO STAT 01/25/2025 6:01 PM CDT D-DIMER, QUANTITATIVE STAT 01/25/2025 6:01 PM CDT PRO B-TYPE NATRIURETIC PEPTIDE STAT 0 01/25/2025 6:01 PM CDT TROPONIN T HIGH-SENSITIVITY SERIES (BASELINE, 2HR, 4HR, 6HR) STAT 01/25/2025 6:01 PM CDT COMPREHENSIVE METABOLIC PANEL STAT 6:01 PM CDT CBC WITH AUTO DIFFERENTIAL STAT 01/25 6:01 PM CDT ECG 12-LEAD STAT 01/25/2025 5:23 PM CDT ECG 12-LEAD Routine 01/25/2025 3:32 PM CDT Epigastric pain CT ABDOMEN PELVIS W CONTRAST ED 8:10 PM CDT URINALYSIS, MICROSCOPIC ONLY STAT 3:55 PM CDT URINALYSIS AND REFLEX TO MICROSCOPIC AND CULTURE STAT 12/03/2024 3:55 PM CDT EGFR STAT 12/03/2024 2:48 PM CDT DIFFERENTIAL AUTO STAT 12/03/2024 2:48 PM CDT LIPASE STAT 12/03/2024 2:48 PM CDT COMPREHENSIVE METABOLIC PANEL STAT 2:48 PM CDT CBC WITH AUTO DIFFERENTIAL STAT 12/03 2:48 PM CDT LIPID PANEL Routine 11/26/2024 10:15 AM CDT Hypertriglyceri demia SCREENING MAMMOGRAM BILATERA L W JOSEPH Schedule Routine, Read Routine (OP Routine) 08/09/2024 2:09 PM CDT Encounter for screening mammogram for malignant neoplasm of breast ALBUMIN CREATININE RATIO, URINE Routine 06/17/2024 11:24 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 Controlled type 2 diabetes mellitus without complication, unspecified whether custodial insulin use (HCC) DIABETIC EYE EXAM Routine 03/11/2024 DEXA AXIAL SKELETON BONE DENSITY 1 OR MORE SITES Schedule Routine, Read Routine (OP Routine) 03/15/2023 2:11 PM CDT Postmenopausal COLONOSCOPY 03/29/2022 7:55 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 HEPATITIS C ANTIBODY Routine 12/02/2020 9:52 AM CDT Need for hepatitis C screening test from Last 3 Months or Most Recently Relevant to Health Maintenance Results * POCT glucose (01/28/2025 4:32 PM CDT) Glucose, POC 85 70 - 199 mg/dL Blood 01/28/2025 4:32 PM CDT 01/28/2025 4:32 PM CDT us Quiana Delgado MD LAB POCT ORDERABLES - DEVICE Fi nal Result MAR [facility] Department [place] [address] * EGD (01/28/2025 2:04 PM CDT) Anatomical Region Laterality Modality Other Narrative Procedure Note Anjel Guzman MD - 01/28/2025 2:04 PM CDT [facility] Patient Name: Tino Ribeiro Procedure Date: 01/28/2025 2:04 PM Date of : 1955 Admit Type: Inpatient Age: 69 Gender: Female Attending MD: Anjel Guzman M.D., Room: [facility] ENDOSCOPY ROOM 2 Note Status: Finalized Patient Profile: This is a 69 year old female hx of HLD, anxiety, depression, asthma, GERD, PAD presented to hospital with epigastric and chest pain. Cardiac workupshowed only mild single vessel CAD. EGD in 2017 showedbenign fundic gland gastric polyps. Normal CT A/P without contrast and normal CBC, CMP Procedure: Upper GI endoscopy Indications: Epigastric abdominal pain Referring MD: Star Villalobos M.D. Providers: Anjel Guzman M.D. Impression: - Normal esophagus. - Erythematous mucosa in the antrum and prepyloric region of the stomach. Biopsied. - Multiple fundic gland gastric polyps. - Normal examined duodenum. Recommendation: - [facility] - Resume previous diet. - No ibuprofen, naproxen, or other non-steroidal anti-inflammatory drugs. - Use Protonix (pantoprazole) 40 mg PO daily for 3 months. - Await pathology results. - Okay to be discharged from GI standpoint. Patient can schedule follow up with us in the office. - GI will sign off, please do no hesitate tocontact us with further questions. Medicines: Monitored Anesthesia Care Complications: No immediate complications. Estimated Blood Loss: Estimated blood loss was minimal. Procedure: Pre-Anesthesia Assessment: - Prior to the procedure, a History and Physicalwas performed, and patient medications and allergieswere reviewed. The patient is competent. The risks and benefits of the procedure and the sedation optionsand risks were discussed with the patient. Allquestions were answered and informed consent was obtained. Patient identification and proposed procedure were verified by the physician, the concert promoter and the dental technician in the endoscopy suite. Mental Status Examination: normal. Prophylactic Antibiotics: The patient does not require prophylactic antibiotics. Prior Anticoagulants: The patient has taken no anticoagulant or antiplatelet agents. Afterreviewing the risks and benefits, the patient was deemed in satisfactory condition to undergo the procedure.The anesthesia plan was to use monitored anesthesiacare (MAC). Immediately prior to administration of medications, the patient was re-assessed foradequacy to receive sedatives. The heart rate, respiratory rate, oxygen saturations, blood pressure, adequacyof pulmonary ventilation, and response to care were monitored throughout the procedure. The physical status of the patient was re-assessed after the procedure. The benefits, risks, and alternatives to theprocedure and sedation were discussed and informed consentwas obtained. The scope was passed under direct vision. The Endoscope GIF-H190 [id number] was introduced through the mouth, and advanced to the second partof duodenum. The upper GI endoscopy was accomplished without difficulty. The patient tolerated the procedure well. Findings: The examined esophagus was normal. Striped mildly erythematous mucosa without bleeding was found in the gastric antrum and in the prepyloric region of the stomach. Biopsies were taken with a cold forceps for Helicobacter pylori testing. Multiple small to medium sessile polyps were found in the gastricfundus and in the gastric body. These were previously biopsied to be fundic gland polyps. The examined duodenum was normal. Anjel Guzman M.D. 01/28/2025 3:34:36 PM Number of Addenda: 0 Note Initiated On: 01/28/2025 2:04 PM Procedure Code(s): --- Professional --- 50777, Esophagogastroduodenoscopy, flexible, transoral; with biopsy, single or multiple --- Technical --- 36473, Esophagogastroduodenoscopy, flexible, transoral; with biopsy, single or multiple Diagnosis Code(s): --- Professional --- K31.89, Other diseases of stomach and duodenum K31.7, Polyp of stomach and duodenum R10.13, Epigastric pain --- Technical --- K31.89, Other diseases of stomach and duodenum K31.7, Polyp of stomach and duodenum R10.13, Epigastric pain CPT copyright 2022 [employer]. All rights reserved. The codes documented in this report are preliminary and upon steamfitter supervisor reviewmay be revised to meet current compliance requirements. Recognized by the [employer] for promoting quality in endoscopy us Anjel Guzman MD ENDOSCOPY PROCEDURES Final Resul t * POCT glucose (01/28/2025 1:52 PM CDT) Glucose, POC 103 70 - 199 mg/dL Blood 01/28/2025 1:52 PM CDT 01/28/2025 1:52 PM CDT Quiana Delgado MD LAB POCT ORDERABLES - DEVICE Fi nal Result Performing Organization Address City/[facility] Co de Phone Number [facility] [address] [place] [address] [place] [address] * POCT glucose (01/28/2025 11:51 AM CDT) Glucose, POC 111 70 - 199 mg/dL Blood 01/28/2025 11:5 1 AM CDT 01/28/2025 11:51 AM CDT Quiana Delgado MD LAB POCT ORDERABLES - DEVICE Fi nal Result Performing Organization Address [facility] de Phone Number MAR [facility] ([facility]) [address] [place] [address] [place] [address] * Surgical pathology (01/28/2025 10:06 AM CDT) Tissue (Gastric/Stomach biopsy) 01/28/2025 3:13 PM CDT Narrative PATHOLOGY [facility] ([facility]) - 01/30/2025 6:24 PM CDT EPIC results best viewed via link to PDF [facility] Department of Pathology [address] [place] [id number] Note to Patients: This report may contain a detailed description of human tissue sent by a health care provider to the laboratory for pathologic evaluation. The content of this report is essential for diagnosis and may provide important critical findings. This information may be unfamiliar to patients to review without a medical professional present. It is advised that the patient review this report in the presence of a health care provider who can answer questions and explain the details. Final Report Patient Name: TINO RIBEIRO Address: [address] [place] [id number] Gender: F : 1955 (Age: 69) Service: Medical Location: [facility] #: [id number] Patient Type: [facility] Taken: 01/28/2025 Received: 01/29/2025 Accessioned: 01/29/2025 Reported: 01/30/2025 Physician(s):Anjel Guzman MD Diagnosis: Gastric, biopsy: - Gastric tissue with minimal chronic inactive inflammation, reactive/regenerative alterations, and focal intestinal metaplasia. - Negative for dysplasia or malignancy. - Negative Helicobacter immunostain. Adi Foley MD Report Electronically Reviewed and Signed Out By Adi Foley MD 01/30/2025 18:24:15 Specimen(s) Received: A: Gastric biopsy Microscopic Description: Microscopic examination shows gastric tissue with minimal chronic inactive inflammation, reactive/regenerative alterations, and focal intestinal metaplasia (best appreciated on H&E level II). There is no evidence of dysplasia or malignancy. No definitive Helicobacter organisms are seen on routine H&E staining. A Helicobacter immunostain is performed with appropriately reactive controls on block A1 and is negative. Clinical History: Epigastric pain. EGD. Gross Description: The specimen is submitted in a single formalin filled container labeled TINO RIBEIRO and gastric biopsy. It is 3 lundy tissue fragments between 1 and 2 mm. All in one cassette. Shabbir Salmeron R.N., P.A./April Lamb M.D. REPORT IMAGES AND SCANNED DOCUMENTS, IF INCLUDED, ONLY VIEWABLE IN PDF VERSION OF REPORT The performance characteristics of some immunohistochemical stains, fluorescence in-situ hybridization tests and immunophenotyping by flow cytometry cited in this report (if any) were determined by the Surgical Pathology Department at [facility] as part of an ongoing quality assurance assessor program and in compliance with federally mandated regulations drawn from the Clinical Laboratory Improvement Act of 1988 (CLIA '88). Some of these tests rely on the use of analyte specific reagents and are subject to specific labeling requirements by the US Food and Drug Administration. Such diagnostic tests may only be performed in a facility that is certified by the Department of Health and Human Services as a high complexity laboratory under CLIA '88. The FDA has determined that such clearance or approval is not necessary. This test is used for clinical purposes. It should not be regarded as investigational or for research. Nevertheless, federal rules concerning the medical use of analyte specific reagents require that the following disclaimer be attached to the report: This test was developed and its performance characteristics determined by the Surgical Pathology Department [facility]. It has not been cleared or approved by the U. S. Food and Drug Administration. Note for decalcified specimens: This assay has not been validated on decalcified tissues. Results should be interpreted with caution given the possibility of false negativity on decalcified specimens Anjel Guzman MD LAB PATHOLOGY ORDERABLES Final R esult Performing Organization Address [facility] de Phone Number [facility] ([facility]) [address] [place] [address] * POCT glucose (01/28/2025 7:41 AM CDT) Glucose, POC 111 70 - 199 mg/dL Blood 01/28/2025 7:41 AM CDT 01/28/2025 7:41 AM CDT Quiana Delgado MD LAB POCT ORDERABLES - DEVICE Fi nal Result Performing Organization Address [facility] de Phone Number [facility] [address] [place] [address] [place] [address] * POCT glucose (01/28/2025 3:21 AM CDT) Glucose, POC 106 70 - 199 mg/dL Blood 01/28/2025 3:21 AM CDT 01/28/2025 3:21 AM CDT Quiana Delgado MD LAB POCT ORDERABLES - DEVICE Fi nal Result Performing Organization Address [facility] de Phone Number [facility] ([facility]) [address] [facility] [place] [address] * LEFT HEART CATHETERIZATION WITH CORONARY ANGIOGRAPHY AND WITH AND WITHOUT LEFT VENTRICULOGRAM (01/27/2025 12:47 PM CDT) Anatomical Region Laterality Modality X-Ray Angiograph y Narrative 01/29/2025 7:36 AM CDT CARDIAC CATHETERIZATION BRIEF CLINICAL HISTORY Mr. Tino Ribeiro is a very pleasant 69-year-old woman is referred for a cardiac catheterization procedure to rule out obstructive coronary artery disease following her presentation with chest discomfort. Cardiac catheterization/intervention procedures were discussed in detail with the patient. The indications, risks, benefits and alternatives were discussed. The risks include, but are not limited to, , stroke, myocardial infarction, need for emergency bypass surgery, pericardial tamponade, allergy to contrast/ anaesthetic agents, contrast induced nephropathy that may require temporary or permanent dialysis, radiation injury, vascular complications, including bleeding that may require blood transfusions, retroperitoneal hematoma that may be fatal, pseudoaneurysm formation, loss of limb; arrhythmias/ respiratory failure that may need cardioversion, intubation, CPR; and possible need for repeat procedures. Patient verbalizes understanding of the risks and benefits and patient is willing to proceed with it. PROCEDURES PERFORMED 1. Left heart catheterization. 2. Left ventriculogram. 3. Selective coronary angiography. 4. Angio-Seal closure device to the right femoral arteriotomy site. GROIN Right groin. SHEATH A 5-Citizen Of [place] sheath in the right femoral artery. MODERATE SEDATION: Patient received 2 mg of Versed and 50 mcg of fentanyl were utilized to induce moderate sedation for a procedure duration of 10 minutes that was completely supervised. PROCEDURE DETAILS After obtaining informed consent and administering lidocaine to the right groin, a 5-Citizen [place] sheath was introduced into the right femoral artery using modified Selinger technique. Over a J-tip guidewire, a left Rosario catheter, a right Rosario catheter and a pigtail catheter were used in sequence to perform left coronary angiography, right coronary angiography and left ventriculography. Left ventricular hemodynamic studies were performed including pressure gradient across the aortic valve. Patient in general tolerated the procedure well. No immediate complications were noted. FINDINGS 1. Left main is good caliber, angiographically normal. 2. Left anterior descending artery shows a good caliber vessel with a type 1 anatomy that wraps around the apex shows a mild plaque of about 20% in the mid segment right past the 2nd diagonal branch. First diagonal branch is angiographically normal. Second diagonal branch is normal. 3. Left circumflex artery is nondominant, has angiographic normal appearance including a slender 1st obtuse marginal branch, a good caliber long distribution 2nd obtuse marginal branch and a slender distal circumflex artery. 4. Right coronary artery is good caliber, dominant, is angiographically normal. Posterior descending artery and posterolateral branch are angiographically normal as well. Posterior descending artery is a small caliber vessel. 5. Normal left ventricle systolic function, visually estimated ejection fraction 60-70%. 6. Normal left ventricular filling pressures, end-diastolic pressure of 5 mmHg. SUMMARY OF FINDINGS 1. Largely Normal major vessel coronary anatomy other than a mild single-vessel CAD of the mid LAD. 2. Normal left ventricular systolic function, visually estimated ejection fraction 60-70%. 3. Normal left ventricular filling pressures, LVEDP 5 mm of mercury. PLAN Bed rest for 2 hours. IVF 0.9 NS 100 cc/hr for 2 hours. ASA 81 mg once a day. Risk factor modification strategy discussed with the patient. It included weight reduction through exercise and dietary discretion, optimal control of hypertension, lipid status. Continue statin. Discussed with the patient and family about the details of the procedure, the results, post cath care instructions including activity limitations explained. Suggest further evaluation of non cardiac causes of his chest discomfort. Patient is scheduled for an upper GI procedure to evaluate these symptoms. Kristen Spence MD Dannielle Anand MD CV CARDIAC CATH PROCEDURES Fi nal Result * eGFR (01/27/2025 5:25 AM CDT) eGFR 79 >=60 mL/min/1. 73 m2 Comment: Interpretive Data Reference Interval Normal >/= 90 mL/min/1.73m2 Mildly decreased* 60 - 89 mL/min/1.73m2 Mildly to moderately decreased 45 - 59 mL/min/1.73m2 Moderately to severely decreased 30 - 44 mL/min/1.73m2 Severely decreased 15 - 29 mL/min/1.73m2 Kidney Failure < 15 mL/min/1.73m2 *Relative to young adult level Estimated glomerular filtration rate is determined by the 2020 CKD-EPI equation recommended by the National Kidney Foundation (A Unifying Approach to GFR Estimation: Recommendations of the NKF-ASK Task Force on Reassessing the Inclusion of Race in Diagnosing Kidney Disease, JASN 2020). The CKD-EPI equation should not be used for patients with unstable renal function and has not been validated in children and those over 70. Current interpretive data was last reviewed 2021. Blood 01/27/2025 5:25 AM CDT 01/27/2025 5:41 AM CDT Shalom Lehman MD LAB BLOOD ORDERABLES Final R esult [facility] ([facility]) [address] [facility] [place] [address] * CBC without differential (01/27/2025 5:25 AM CDT) WBC 4.79 3.80 - 9.90 K/cumm Hgb 14.2 11.9 - 15.5 g/dL [facility] ([facility]) Hct 43.5 35.6 - 45.5 % [facility] Plt 193 150 - 400 K/cumm [facility] ([facility]) MPV 9.9 9.1 - 12.3 fL [facility] RBC 4.82 3.90 - 5.20 M/cumm [facility] ([facility]) MCV 90.2 81.3 - 96.4 fL [facility] MCH 29.5 27.1 - 33.3 pg [facility] MCHC 32.6 32.3 - 35.7 g/dL [facility] RDW CV 13.9 11.1 - 14.9 % [facility] RDW SD 46.4 35.7 - 48.1 fL [facility] NRBC abs 0.00 0.00 - 0.01 K/cumm [facility] Blood 01/27/2025 5:25 AM CDT 01/27/2025 5:41 AM CDT Shalom Lehman MD LAB BLOOD ORDERABLES Final R esult [facility] ([facility]) 1 [facility] [employer] [place] [address] * Renal function panel (01/27/2025 5:25 AM CDT) Sodium 138 135 - 145 mmol/L [facility] ([facility]) Potassium, pl 4.0 3.3 - 4.9 mmol/L [facility]) Chloride 101 97 - 110 mmol/L [facility] CO2 26 22 - 32 mmol/L [facility]) Anion gap 11 2 - 15 mmol/L [facility]) BUN 12 6 - 25 mg/dL [facility]) Creatinine 0.80 0.60 - 1.10 mg/dL [facility] ([facility]) Glucose 104 70 - 199 mg/dL [facility] ([facility]) Comment: Interpretive Data Fasting glucose >/= 126 mg/dl is diagnostic for diabetes. Fasting is defined as no caloric intake for at least 8 hours. Fasting glucose between 100 mg/dl to 125 mg/dl is diagnostic of prediabetes. In a patient with classic symptoms of hyperglycemia or hyperglycemic crisis, a random glucose >/= 200 mg/dl is diagnostic for diabetes. In the absence of unequivocal hyperglycemia, results should be confirmed by repeat testing. The classification and Diagnosis of Diabetes Diabetes Care 2021; 46: S19-S40. Current interpretive data was last revised 2022. Calcium 9.5 8.5 - 10.3 mg/dL [facility] Phosphorus, pl 3.3 2.3 - 4.5 mg/dL [facility] Albumin 4.2 3.5 - 5.0 g/dL [facility] Blood 01/27/2025 5:25 AM CDT 01/27/2025 5:41 AM CDT us Shalom Lehman MD LAB BLOOD ORDERABLES Final R esult [facility] ([facility]) 1 [facility] Department of Laboratories [place], [place] [id number] * CT Abdomen Pelvis WO Contrast (01/26/2025 3:25 PM CDT) Anatomical Region Laterality Modality Body N/A Computed Tomogra phy 01/26/2025 6:58 PM CDT Narrative 01/26/2025 7:03 PM CDT EXAM DESCRIPTION: CT ABDOMEN PELVIS WO CONTRAST REASON FOR STUDY: Abdominal pain, acute, nonlocalized Constipation, epigastric pain x 1 week. Hx of oophorectomy, cholecystectomy and bladder tie-up. TECHNIQUE: CT scan of the abdomen and pelvis performed without intravenous and without oral contrast using helical scanning technique. Reconstructed coronal and sagittal MPR images reviewed. All images stored on PACS. Automated exposure control was used as a dose optimization technique for this examination. COMPARISON: 12/03/2025 FINDINGS: The sensitivity for detection of visceral lesions is diminished without the use of intravenous contrast. LOWER CHEST: No significant pulmonary abnormalities. No effusion. LIVER: Normal size. No identified cystic or solid masses. GALLBLADDER: Removed BILE DUCTS: No intrahepatic or extrahepatic ductal dilatation. SPLEEN: Normal size. No focal lesions. PANCREAS: No identified cystic or solid masses. No significant calcifications. No adjacent inflammation or peripancreatic fluid collections. Pancreatic duct not dilated. ADRENALS: Normal. KIDNEYS/URINARY TRACT: No identified significant cystic or solid masses. No stones. No hydronephrosis or hydroureter. Urinary bladder is unremarkable. GI: No dilated bowel loops. No obvious wall thickening. The appendix is not clearly identified. No pericecal inflammatory changes are seen.. No significant diverticular disease. 2.5 cm duodenal diverticulum is seen near the head of the pancreas. PERITONEUM: No ascites or free air. RETROPERITONEUM: No mass or adenopathy. REPRODUCTIVE: No significant abnormality. VASCULATURE: No abdominal aortic aneurysm. MUSCULOSKELETAL: No significant abnormality. OTHER: No other abnormality. IMPRESSION: No acute finding. THIS IS AN ELECTRONICALLY VERIFIED FINAL REPORT 01/26/2025 7:03 PM - Electronically signed by Tim Flaherty M.D. KH: CRISTIANE Report ID: [id number] Reading Location: [place] [address] Procedure Note Tim Flaherty MD - 01/26/2025 EXAM DESCRIPTION: CT ABDOMEN PELVIS WO CONTRAST REASON FOR STUDY: Abdominal pain, acute, nonlocalized Constipation, epigastric pain x 1 week. Hx of oophorectomy,cholecystectomy and bladder tie-up. TECHNIQUE: CT scan of the abdomen and pelvis performed without intravenousand without oral contrast using helical scanning technique. Reconstructed coronal and sagittal MPR images reviewed. All images stored on PACS.Automated exposure control was used as a dose optimization technique for this examination. COMPARISON: 12/03/2025 FINDINGS: The sensitivity for detection of visceral lesions is diminished withoutthe use of intravenous contrast. LOWER CHEST: No significant pulmonary abnormalities. No effusion. LIVER: Normal size. No identified cystic or solid masses. GALLBLADDER: Removed BILE DUCTS: No intrahepatic or extrahepatic ductal dilatation. SPLEEN: Normal size. No focal lesions. PANCREAS: No identified cystic or solid masses. No significant calcifications. No adjacent inflammation or peripancreatic fluidcollections. Pancreatic duct not dilated. ADRENALS: Normal. KIDNEYS/URINARY TRACT: No identified significant cystic or solid masses.No stones. No hydronephrosis or hydroureter. Urinary bladder isunremarkable. GI: No dilated bowel loops. No obvious wall thickening. The appendix isnot clearly identified. No pericecal inflammatory changes are seen.. No significant diverticular disease. 2.5 cm duodenal diverticulum is seennear the head of the pancreas. PERITONEUM: No ascites or free air. RETROPERITONEUM: No mass or adenopathy. REPRODUCTIVE: No significant abnormality. VASCULATURE: No abdominal aortic aneurysm. MUSCULOSKELETAL: No significant abnormality. OTHER: No other abnormality. IMPRESSION: No acute finding. THIS IS AN ELECTRONICALLY VERIFIED FINAL REPORT 01/26/2025 7:03 PM - Electronically signed by Tim Flaherty M.D. KH: CRISTIANE Report ID: [id number] Reading Location: [id number] Shalom Lehman MD IMG CT PROCEDURES Final Resu lt * NM MPI SPECT (Rest and/or Stress) Multiple Studies (01/26/2025 1:52 PM CDT) Anatomical Region Laterality Modality Body N/A Nuclear Medicine 01/26/2025 2:06 PM CDT Narrative 01/26/2025 2:09 PM CDT EXAM DESCRIPTION: NM MPI SPECT (REST AND/OR STRESS) MULTIPLE STUDIES REASON FOR STUDY: CAD screening, high risk >20% RADIOPHARMACEUTICAL: Rest: 8.1 mCi Tc-99m tetrofosmin via a right arm IV site. Stress: 28 mCi Tc-99m tetrofosmin via a right arm IV site. TECHNIQUE: Standard myocardial perfusion SPECT images were obtained after resting tracer injection. Subsequently, an intravenous infusion of 0.4 mg Lexiscan was performed. Standard myocardial perfusion SPECT images were obtained after tracer injection at the peak effect of the drug. COMPARISON: None. FINDINGS: Substantial breast attenuation artifact is noted on the images. On the post-stress images there is a 25% anterior and anterolateral perfusion defect mild severity. Approximately 15% of the defect shows improvement suggesting ischemia with the remaining 10% being fixed. The left ventricular cavity size is normal. Gated tomographic images demonstrate normal wall motion and wall thickening with a left ventricular ejection fraction of 72% poststress (normal >45%). IMPRESSION: 1. Abnormal myocardial perfusion study. 2. Reversible 15% anterolateral perfusion defect raises suspicion for ischemia. The remaining 10% is fixed. 3. Normal left ventricular ejection fraction and wall motion. THIS IS AN ELECTRONICALLY VERIFIED FINAL REPORT 01/26/2025 2:09 PM - Electronically signed by Kelechi Esparza M.D. CH: DENNIS Report ID: [id number] Reading Location: [id number] Procedure Note Kelechi Esparza MD - 01/26/2025 EXAM DESCRIPTION: NM MPI SPECT (REST AND/OR STRESS) MULTIPLE STUDIES REASON FOR STUDY: CAD screening, high risk >20% RADIOPHARMACEUTICAL: Rest: 8.1 mCi Tc-99m tetrofosmin via a right armIV site. Stress: 28 mCi Tc-99m tetrofosmin via a right arm IV site. TECHNIQUE: Standard myocardial perfusion SPECT images were obtained after resting tracer injection. Subsequently, an intravenous infusion of 0.4mg Lexiscan was performed. Standard myocardial perfusion SPECT images were obtained after tracer injection at the peak effect of the drug. COMPARISON: None. FINDINGS: Substantial breast attenuation artifact is noted on the images. On the post-stress images there is a 25% anterior and anterolateralperfusion defect mild severity. Approximately 15% of the defect shows improvement suggesting ischemia with the remaining 10% being fixed. The left ventricular cavity size is normal. Gated tomographic images demonstrate normal wall motion and wallthickening with a left ventricular ejection fraction of 72% poststress (normal >45%). IMPRESSION: 1. Abnormal myocardial perfusion study. 2. Reversible 15% anterolateral perfusion defect raises suspicion for ischemia. The remaining 10% is fixed. 3. Normal left ventricular ejection fraction and wall motion. THIS IS AN ELECTRONICALLY VERIFIED FINAL REPORT 01/26/2025 2:09 PM - Electronically signed by Kelechi Esparza M.D. CH: DENNIS Report ID: [id number] Reading Location: [id number] Dannielle Anand MD [facility] PROCEDURES Final Resul t * Stress Test for Myocardial Perfusion (01/26/2025 1:52 PM CDT) Anatomical Region Laterality Modality Nuclear Medicine 01/26/2025 10:4 0 AM CDT Narrative 01/26/2025 1:02 [place] [address] [employer] Report Patient Name: TINO RIBEIRO A : 1955 Study Date: 01/26/2025 10:40:00 AM Sex: F Tech: kim leon Location: [id number] [facility] Provider: DANNIELLE ANAND Height(Cm): 160 BSA: 3.14 Weight(Kg): 222 Heart Rate: 127 Order Provider: DANNIELLE ANAND PROCEDURES: Pharmacologic SPECT Report.: Myocardial perfusion imaging with Sestamibi SPECT at rest and post regadenoson (Lexiscan) infusion. INDICATIONS: Chest Pain. FINDINGS: Procedure Data: Resting HR 66 bpm Peak HR: 113 bpm Predicted Maximal HR 149 bpm Target HR: 127 bpm Percent Max Predicted HR Achieved: 75.84 % Baseline BP: 188/105 mmHg Peak BP: 201/95 mmHg Exercise Time: 00:12 Medications: Free Text. Performed By: Supervising Physician: The Supervising Physician is jena pérez. Reason for Termination: Lexiscan protocol complete. Resting ECG: Normal sinus rhythm at 76 beats per minute, normal axis. Post Pharm ECG: No diagnostic ST changes. Arrhythmia: No arrhythmias seen. Cardiac Symptoms With Stress: Symptoms with stress were None. Exam Interpreted: Read by . CONCLUSIONS: 1. Negative Lexiscan pharmacologic stress test for chest pain or EKG changes. 2. Nuclear images are pending and they will be reported separately. Electronically Signed By: Dr Dannielle Anand 01/26/2025 12:21:33 PM CDT Procedure Note Dannielle Anand MD - 01/26/[address] [address] [employer] Report Patient Name: TINO RIBEIRO A : 1955 Study Date: 01/26/2025 10:40:00 AM Sex: F Tech: kim dowling Location: [id number] Ref Provider: DANNIELLE ANAND Height(Cm): 160 BSA: 3.14 Weight(Kg): 222 Heart Rate: 127 Order Provider: DANNIELLE ANAND PROCEDURES: Pharmacologic SPECT Report.: Myocardial perfusion imaging with Sestamibi SPECT at rest and postregadenoson (Lexiscan) infusion. INDICATIONS: Chest Pain. FINDINGS: Procedure Data: Resting HR 66 bpm Peak HR: 113 bpm Predicted Maximal HR 149 bpm Target HR: 127 bpm Percent Max Predicted HR Achieved: 75.84 % Baseline BP: 188/105 mmHg Peak BP: 201/95 mmHg Exercise Time: 00:12 Medications: Free Text. Performed By: Supervising Physician: The Supervising Physician is jena pérez. Reason for Termination: Lexiscan protocol complete. Resting ECG: Normal sinus rhythm at 76 beats per minute, normal axis. Post Pharm ECG: No diagnostic ST changes. Arrhythmia: No arrhythmias seen. Cardiac Symptoms With Stress: Symptoms with stress were None. Exam Interpreted: Read by . CONCLUSIONS: 1. Negative Lexiscan pharmacologic stress test for chest pain or EKGchanges. 2. Nuclear images are pending and they will be reported separately. Electronically Signed By: Dr Dannielle Anand 01/26/2025 12:21:33 PM CDT us Dannielle Anand MD CV STRESS PROCEDURES Final Re sult * TRANSTHORACIC ECHO (TTE) COMPLETE W DOPPLER/CF WO CONTRAST (01/26/2025 1:00 PM CDT) Estimated EF 70-75 % CONS SCIMAGE Anatomical Region Laterality Modality Ultrasound 01/26/2025 12:4 5 PM CDT Narrative 01/26/2025 1:46 PM CDT [address] [address] Echocardiogram Report Patient Name: TINO RIBEIRO : 1955 Study Date: 01/26/2025 12:45:23 PM Gender: F Tech: Location: [id number] Ref Provider: KARINA GAGNON Height(Cm): BSA: Weight(Kg): Quality: Adequate Order Provider: KARINA GAGNON PROCEDURES: Echocardiographic Report: Transthoracic echocardiogram with complete 2D, M-Mode, and color Doppler examination. INDICATIONS: Chest Pain. MEASUREMENTS: 2D/MM Value Range Doppler Value Range EF Teich MM 75.0 % [ 54.0 - 74.0 ] ANGIE Vmax 2.67 cm2 Estimated EF 70-75 % AV Mean PG 3 mmHg LVIDd MM 4.80 cm [ 3.80 - 5.20 ] AV Peak Amos 1.09 m/s [ 1.00 - 1.70 ] LVIDs MM 2.70 cm [ 2.20 - 3.50 ] AV VTI 25.58 cm LVPWd MM 1.20 cm [ 0.60 - 0.90 ] LVOT Diam 2.21 cm IVSd MM 1.40 cm [ 0.60 - 0.90 ] LVOT Peak Amos 0.76 m/s [ 0.70 - 1.10 ] LA Dimension MM 3.27 cm [ 2.70 - 3.80 ] LVOT VTI 15.64 cm AoR Diam MM 2.54 cm [ 2.70 - 3.70 ] MV E Peak Amos 0.59 m/s [ 0.60 - 1.30 ] ACS MM 1.65 cm MV A Peak Amos 0.94 m/s [ 1.00 - 1.20 ] MV Mean PG 1 mmHg MV PHT 69 msec [ 20 - 100 ] MVA 3.20 MV Decel Time 239 msec [ 104 - 258 ] PV Peak Amos 0.91 m/s [ 0.40 - 0.80 ] TR Peak Amos 2.09 m/s [ 1.00 - 2.80 ] TR Peak PG 17 mmHg RVSP 25.00 mmHg [ 10.00 - 36.00 ] E` 0.08 m/s E/E` 7.12 [ <= 10.00 ] PA Pressure 25.00 mmHg [ 10.00 - 36.00 ] 2D/MM Value Range Doppler Value Range - FINDINGS: Atrial Septum: Normal atrial septum. Left Ventricle: Normal left ventricular systolic function with no focal wall motion abnormalities. Normal left ventricular size. Mild concentric left ventricular hypertrophy. Impaired diastolic relaxation Grade I. Ejection Fraction is estimated to be 70-75 %. Left Atrium: The left atrium is normal in size. Right Ventricle: Normal right ventricular size. Normal right ventricular systolic function. Right Atrium: The right atrium is normal in size. Aortic Valve: Normal structure of the aortic valve. Mitral Valve: Trivial regurgitation of the mitral valve. Pulmonic Valve: Normal structure of the pulmonic valve. Tricuspid Valve: Normal right ventricular systolic pressure. Estimated peak RVSP is 25 mmHg. Mild tricuspid regurgitation. Pericardium: Normal pericardium with no significant pericardial effusion. Aorta: Normal aortic root. Sinus of Valsalva is normal. Aortic arch is normal. Descending aorta is normal. IVC: Normal size and normal respiratory collapse consistent with normal right atrial pressure (<5 mmHg). Pulmonary Artery: Normal pulmonary artery size. CONCLUSIONS: Normal left ventricular systolic function with no focal wall motion abnormalities. Normal left ventricular size. Mild concentric left ventricular hypertrophy. Impaired diastolic relaxation Grade I. Ejection Fraction is estimated to be 70-75 %. Trivial regurgitation of the mitral valve. Normal right ventricular systolic pressure. Estimated peak RVSP is 25 mmHg. Mild tricuspid regurgitation. Technically difficult study with suboptimal views. Electronically Signed By: Howie Elizondo MD 01/26/2025 1:46:06 PM CDT Procedure Note Howie Elizondo MD - 01/26/[address] [address] Echocardiogram Report Patient Name: TINO RIBEIRO : 1955 Study Date: 01/26/2025 12:45:23 PM Gender: F Tech: Location: [place] [address] Ref Provider: KARINA GAGNON Height(Cm): BSA: Weight(Kg): Quality: Adequate Order Provider: KARINA GAGNON PROCEDURES: Echocardiographic Report: Transthoracic echocardiogram with complete 2D, M-Mode, and color Dopplerexamination. INDICATIONS: Chest Pain. MEASUREMENTS: 2D/MM Value Range Doppler ValueRange EF Teich MM 75.0 % [ 54.0 - 74.0 ] ANGIE Vmax 2.67cm2 Estimated EF 70-75 % AV Mean PG 3 mmHg LVIDd MM 4.80 cm [ 3.80 - 5.20 ] AV Peak Amos 1.09 m/s[ 1.00 - 1.70 ] LVIDs MM 2.70 cm [ 2.20 - 3.50 ] AV VTI 25.58cm LVPWd MM 1.20 cm [ 0.60 - 0.90 ] LVOT Diam 2.21cm IVSd MM 1.40 cm [ 0.60 - 0.90 ] LVOT Peak Amos 0.76 m/s[ 0.70 - 1.10 ] LA Dimension MM 3.27 cm [ 2.70 - 3.80 ] LVOT VTI 15.64cm AoR Diam MM 2.54 cm [ 2.70 - 3.70 ] MV E Peak Amos 0.59 m/s[ 0.60 - 1.30 ] ACS MM 1.65 cm MV A Peak Amos 0.94 m/s[ 1.00 - 1.20 ] MV Mean PG 1 mmHg MV PHT 69 msec [ 20 - 100 ] MVA 3.20 MV Decel Time 239 msec [ 104 - 258 ] PV Peak Amos 0.91 m/s [ 0.40 - 0.80 ] TR Peak Amos 2.09 m/s [ 1.00 - 2.80 ] TR Peak PG 17 mmHg RVSP 25.00 mmHg [ 10.00 - 36.00 ] E` 0.08 m/s E/E` 7.12 [ <= 10.00 ] PA Pressure 25.00 mmHg [ 10.00 - 36.00 ] 2D/MM Value Range Doppler ValueRange - FINDINGS: Atrial Septum: Normal atrial septum. Left Ventricle: Normal left ventricular systolic function with no focal wall motionabnormalities. Normal left ventricular size. Mild concentric left ventricular hypertrophy.Impaired diastolic relaxation Grade I. Ejection Fraction is estimated to be 70-75 %. Left Atrium: The left atrium is normal in size. Right Ventricle: Normal right ventricular size. Normal right ventricular systolicfunction. Right Atrium: The right atrium is normal in size. Aortic Valve: Normal structure of the aortic valve. Mitral Valve: Trivial regurgitation of the mitral valve. Pulmonic Valve: Normal structure of the pulmonic valve. Tricuspid Valve: Normal right ventricular systolic pressure. Estimated peak RVSP is 25mmHg. Mild tricuspid regurgitation. Pericardium: Normal pericardium with no significant pericardial effusion. Aorta: Normal aortic root. Sinus of Valsalva is normal. Aortic arch is normal.Descending aorta is normal. IVC: Normal size and normal respiratory collapse consistent with normal rightatrial pressure (<5 mmHg). Pulmonary Artery: Normal pulmonary artery size. CONCLUSIONS: Normal left ventricular systolic function with no focal wall motionabnormalities. Normal left ventricular size. Mild concentric left ventricular hypertrophy.Impaired diastolic relaxation Grade I. Ejection Fraction is estimated to be 70-75 %. Trivial regurgitation of the mitral valve. Normal right ventricular systolic pressure. Estimated peak RVSP is 25mmHg. Mild tricuspid regurgitation. Technically difficult study with suboptimal views. Electronically Signed By: Howie Elizondo MD 01/26/2025 1:46:06 PM CDT us Karina Gagnon MD CV ECHO PROCEDURES Janis l Result * POCT glucose (01/26/2025 9:40 AM CDT) Glucose, POC 116 70 - 199 mg/dL Blood 01/26/2025 9:40 AM CDT 01/26/2025 9:40 AM CDT Shalom Lehman MD LAB POCT ORDERABLES - DEVICE Final Result [facility] ([facility]) 1 [facility] Department of Laboratories [place], [place] [id number] * Troponin T high-sensitivity 6-hour (01/26/2025 12:26 AM CDT) Trop T hs <6 <=14 ng/L [facility] ([facility]) Comment: Interpretive Data For further hscTnT resources including the diagnostic algorithm and an aid in interpretation, copy and paste this link: https://nrl.testcatalog.org/show/hsTrop Current Interpretive Data last revised 2020. Trop T hs delta 0 ng/L [facility] ([facility]) Trop T hs interp Insignificant [facility] ([facility]) Blood 01/26/2025 12:2 6 AM CDT 01/26/2025 12:34 AM CDT us Niecy PISANO LAB BLOOD ORDERABLES Final Resu lt Performing Organization Address City/[facility]/ZIP Co de Phone Number [facility] ([facility]) 1 [facility] [employer] [place] [address] * eGFR (01/26/2025 12:26 AM CDT) eGFR 79 >=60 mL/min/1. 73 m2 Comment: Interpretive Data Reference Interval Normal >/= 90 mL/min/1.73m2 Mildly decreased* 60 - 89 mL/min/1.73m2 Mildly to moderately decreased 45 - 59 mL/min/1.73m2 Moderately to severely decreased 30 - 44 mL/min/1.73m2 Severely decreased 15 - 29 mL/min/1.73m2 Kidney Failure < 15 mL/min/1.73m2 *Relative to young adult level Estimated glomerular filtration rate is determined by the 2020 CKD-EPI equation recommended by the National Kidney Foundation (A Unifying Approach to GFR Estimation: Recommendations of the NKF-ASK Task Force on Reassessing the Inclusion of Race in Diagnosing Kidney Disease, JASN 2020). The CKD-EPI equation should not be used for patients with unstable renal function and has not been validated in children and those over 70. Current interpretive data was last reviewed 2021. Blood 01/26/2025 12:2 6 AM CDT 01/26/2025 12:34 AM CDT us Karina Gagnon MD LAB BLOOD ORDERABLES Fi nal Result [facility] ([facility]) 1 [facility] Department [place] [address] * Differential, auto (01/26/2025 12:26 AM CDT) Neutrophil abs 4.31 1.50 - 6.50 K/cumm Imm gran abs 0.03 0.00 - 0.10 K/cumm [facility] ([facility]) Lymphocyte abs 0.92 0.80 - 3.30 K/cumm [facility] ([facility]) Monocyte abs 0.47 0.20 - 0.80 K/cumm [facility] ([facility]) Eosinophil abs 0.19 0.00 - 0.50 K/cumm [facility] ([facility]) Basophil abs 0.05 0.00 - 0.10 K/cumm [facility] ([facility]) Neutrophil pct 72.2 % [facility] ([facility]) Comment: Interpretive Data Percent cell count reference ranges are not reported, since discordance with absolute values may lead to misinterpretation of CBC data. Current Interpretive Data was last revised on 2017. Imm gran pct 0.5 % [facility] ([facility]) Comment: Interpretive Data Percent cell count reference ranges are not reported, since discordance with absolute values may lead to misinterpretation of CBC data. Current Interpretive Data was last revised on 2017. Lymphocyte pct 15.4 % [facility] ([facility]) Comment: Interpretive Data Percent cell count reference ranges are not reported, since discordance with absolute values may lead to misinterpretation of CBC data. Current Interpretive Data was last revised on 2017. Monocyte pct 7.9 % [facility] ([facility]) Comment: Interpretive Data Percent cell count reference ranges are not reported, since discordance with absolute values may lead to misinterpretation of CBC data. Current Interpretive Data was last revised on 2017. Eosinophil pct 3.2 % [facility] ([facility]) Comment: Interpretive Data Percent cell count reference ranges are not reported, since discordance with absolute values may lead to misinterpretation of CBC data. Current Interpretive Data was last revised on 2017. Basophil pct 0.8 % [facility] ([facility]) Comment: Interpretive Data Percent cell count reference ranges are not reported, since discordance with absolute values may lead to misinterpretation of CBC data. Current Interpretive Data was last revised on 2017. Blood 01/26/2025 12:2 6 AM CDT 01/26/2025 12:34 AM CDT us Karina Gagnon MD LAB BLOOD ORDERABLES Fi nal Result [facility] ([facility]) 1 [facility] Department [place] [address] * CBC with auto differential (01/26/2025 12:26 AM CDT) WBC 5.97 3.80 - 9.90 K/cumm Hgb 13.1 11.9 - 15.5 g/dL [facility] ([facility]) Hct 40.1 35.6 - 45.5 % [facility] ([facility]) Plt 184 150 - 400 K/cumm [facility] ([facility]) MPV 9.7 9.1 - 12.3 fL [facility] ([facility]) RBC 4.35 3.90 - 5.20 M/cumm [facility] ([facility]) MCV 92.2 81.3 - 96.4 fL [facility] ([facility]) MCH 30.1 27.1 - 33.3 pg [facility] ([facility]) MCHC 32.7 32.3 - 35.7 g/dL [facility] ([facility]) RDW CV 13.9 11.1 - 14.9 % [facility] ([facility]) RDW SD 47.3 35.7 - 48.1 fL [facility] ([facility]) NRBC abs 0.00 0.00 - 0.01 K/cumm [facility] Blood 01/26/2025 12:2 6 AM CDT 01/26/2025 12:34 AM CDT us Karina Gagnon MD LAB BLOOD ORDERABLES Fi nal Result [facility] ([facility]) 1 [facility] Department [place] [address] * Magnesium (01/26/2025 12:26 AM CDT) Magnesium 1.7 1.4 - 2.5 mg/dL [facility] ([facility]) Blood 01/26/2025 12:2 6 AM CDT 01/26/2025 12:34 AM CDT us Karina Gagnon MD LAB BLOOD ORDERABLES Fi nal Result Performing Organization Address City/[facility]/ZIP Co de Phone Number [facility] ([facility]) 1 [place] [address] * (ABNORMAL) Hemoglobin A1c (01/26/2025 12:26 AM CDT) Hgb A1C 6.1(H) 4.0 - 5.6 % [facility] ([facility]) Estimated Average Glucose 128 mg/dL [facility] ([facility]) Comment: The ADA recommends reporting an estimated Average Glucose (eAG) with all Hemoglobin A1c results using the equation derived from a study of 507 normal and diabetic adults. Minority populations were underrepresented and children were not included. (Diabetes Care 31:1472-4628, 2008). The eAG is not equivalent to a fasting glucose. Testing performed by: [facility], [facility], [place], [address] Blood 01/26/2025 12:2 6 AM CDT 01/26/2025 10:15 AM CDT us Shalom Lehman MD LAB BLOOD ORDERABLES Final R esult Performing Organization Address City/[facility]/ZIP Co de Phone Number [facility] ([facility]) 1 [place] [address] * (ABNORMAL) Comprehensive metabolic panel (01/26/2025 12:26 AM CDT) Sodium 136 135 - 145 mmol/L [facility] ([facility]) Potassium, pl 4.0 3.3 - 4.9 mmol/L [facility] ([facility]) Chloride 101 97 - 110 mmol/L [facility] ([facility]) CO2 21(L) 22 - 32 mmol/L [facility] ([facility]) Anion gap 14 2 - 15 mmol/L [facility] ([facility]) BUN 16 6 - 25 mg/dL [facility] ([facility]) Creatinine 0.80 0.60 - 1.10 mg/dL [facility] ([facility]) Glucose 128 70 - 199 mg/dL [facility] ([facility]) Comment: Interpretive Data Fasting glucose >/= 126 mg/dl is diagnostic for diabetes. Fasting is defined as no caloric intake for at least 8 hours. Fasting glucose between 100 mg/dl to 125 mg/dl is diagnostic of prediabetes. In a patient with classic symptoms of hyperglycemia or hyperglycemic crisis, a random glucose >/= 200 mg/dl is diagnostic for diabetes. In the absence of unequivocal hyperglycemia, results should be confirmed by repeat testing. The classification and Diagnosis of Diabetes Diabetes Care 2021; 46: S19-S40. Current interpretive data was last revised 2022. Calcium 9.2 8.5 - 10.3 mg/dL [facility] ([facility]) Bilirubin, total 0.9 0.1 - 1.2 mg/dL [facility] ([facility]) Protein, pl 6.7 6.5 - 8.5 g/dL [facility] ([facility]) Albumin 4.0 3.5 - 5.0 g/dL [facility] ([facility]) Alk phos 83 40 - 130 Units/L [facility] ([facility]) ALT 14 7 - 45 Units/L [facility] ([facility]) AST 16 10 - 45 Units/L [facility] ([facility]) Blood 01/26/2025 12:2 6 AM CDT 01/26/2025 12:34 AM CDT us Karina Gagnon MD LAB BLOOD ORDERABLES Fi nal Result [facility] 1 [facility] Department of Laboratories [place], [place] [id number] * Troponin T high-sensitivity 4-hour (01/25/2025 10:39 PM CDT) Trop T hs <6 <=14 ng/L [facility] ([facility]) Comment: Interpretive Data For further hscTnT resources including the diagnostic algorithm and an aid in interpretation, copy and paste this link: https://nrl.testcatalog.org/show/hsTrop Current Interpretive Data last revised 2020. Trop T hs delta 0 ng/L [facility] ([facility]) Trop T hs interp Insignificant [facility] ([facility]) Blood 01/25/2025 10:3 9 PM CDT 01/25/2025 10:58 PM CDT us Niecy PISANO LAB BLOOD ORDERABLES Final Resu lt [facility] ([facility]) 1 [facility] [place] [address] * Lipase (01/25/2025 10:39 PM CDT) Lipase 21 10 - 99 Units/L [facility] ([facility]) Blood 01/25/2025 10:3 9 PM CDT 01/25/2025 11:31 PM CDT us Karina Gagnon MD LAB BLOOD ORDERABLES Fi nal Result Performing Organization Address City/[facility]/ZIP Co de Phone Number [facility] ([facility]) [address] [facility] [place] [address] * Troponin T high-sensitivity 2-hour (01/25/2025 8:43 PM CDT) Trop T hs <6 <=14 ng/L [facility] ([facility]) Comment: Interpretive Data For further hscTnT resources including the diagnostic algorithm and an aid in interpretation, copy and paste this link: https://nrl.testcatalog.org/show/hsTrop Current Interpretive Data last revised 2020. Trop T hs delta 0 ng/L [facility] ([facility]) Trop T hs interp Insignificant [facility] ([facility]) Blood 01/25/2025 8:43 PM CDT 01/25/2025 8:48 PM CDT Niecy Cafi PA LAB BLOOD ORDERABLES Final Resu lt [facility] Department [place] [address] * CT Chest PE (CTA) W Contrast (01/25/2025 7:47 PM CDT) Anatomical Region Laterality Modality Body N/A Computed Tomogra phy 01/25/2025 8:23 PM CDT Narrative 01/25/2025 8:36 PM CDT EXAM DESCRIPTION: CT CHEST PE (CTA) W CONTRAST REASON FOR STUDY: Pulmonary embolism (PE) suspected, low to intermediate prob, positive D-dimer, sob Pt from urgent care. Pt states she has back pain and epigastric pain that started Sunday. TECHNIQUE: CT angiogram of the chest performed with intravenous contrast using helical scanning technique with dynamic intravenous contrast injection. Reconstructed coronal and sagittal MPR images reviewed. All images stored on PACS. 3D MIP images rendered on scanning unit and reviewed at time of interpretation. Automated exposure control was used as a dose optimization technique for this examination. CONTRAST TYPE/DOSE: 75mL of IOVERSOL 350 MG IODINE/ML INTRAVENOUS SYRINGE injected via intravenous COMPARISON: 01/25/2025 FINDINGS: VASCULATURE: No identified pulmonary emboli. LUNGS: No nodules or masses. No pneumonia. PLEURA: No effusion. No pneumothorax. MEDIASTINUM/VELASQUEZ: No identified masses or abnormal nodes. HEART: Heart size is normal with no pericardial effusion. AXILLA: No adenopathy. CHEST WALL: No masses. No subcutaneous air. HARDWARE/LINES/TUBES: None. UPPER ABDOMEN: No significant abnormality. MUSCULOSKELETAL: No significant abnormality. OTHER: No significant abnormality. IMPRESSION: No evidence of pulmonary embolism. Unremarkable CT of the chest. THIS IS AN ELECTRONICALLY VERIFIED FINAL REPORT 01/25/2025 8:36 PM - Electronically signed by Tim Flaherty M.D. KH: CRISTIANE Report ID: [id number] Reading Location: [place] [address] Procedure Note Tim Flaherty MD - 01/25/2025 EXAM DESCRIPTION: CT CHEST PE (CTA) W CONTRAST REASON FOR STUDY: Pulmonary embolism (PE) suspected, low to intermediate prob, positive D-dimer, sob Pt from urgent care. Pt states she has back pain and epigastric pain that started Sunday. TECHNIQUE: CT angiogram of the chest performed with intravenous contrastusing helical scanning technique with dynamic intravenous contrast injection. Reconstructed coronal and sagittal MPR images reviewed. All images storedon PACS. 3D MIP images rendered on scanning unit and reviewed at time of interpretation. Automated exposure control was used as a doseoptimization technique for this examination. CONTRAST TYPE/DOSE: 75mL of IOVERSOL 350 MG IODINE/ML INTRAVENOUSSYRINGE injected via intravenous COMPARISON: 01/25/2025 FINDINGS: VASCULATURE: No identified pulmonary emboli. LUNGS: No nodules or masses. No pneumonia. PLEURA: No effusion. No pneumothorax. MEDIASTINUM/VELASQUEZ: No identified masses or abnormal nodes. HEART: Heart size is normal with no pericardial effusion. AXILLA: No adenopathy. CHEST WALL: No masses. No subcutaneous air. HARDWARE/LINES/TUBES: None. UPPER ABDOMEN: No significant abnormality. MUSCULOSKELETAL: No significant abnormality. OTHER: No significant abnormality. IMPRESSION: No evidence of pulmonary embolism. Unremarkable CT of the chest. THIS IS AN ELECTRONICALLY VERIFIED FINAL REPORT 01/25/2025 8:36 PM - Electronically signed by Tim Flaherty M.D. KH: CRISTIANE Report ID: [id number] Reading Location: [place] [address] Niecy PISANO [address] CT PROCEDURES Final Result * XR Chest PA Lateral 2 Views (01/25/2025 6:18 PM CDT) Anatomical Region Laterality Modality Body, Chest N/A Computed Radiogr aphy 01/25/2025 6:36 PM CDT Narrative 01/25/2025 6:40 PM CDT EXAM DESCRIPTION: XR CHEST PA LATERAL 2 VIEWS REASON FOR STUDY: sob Pt from urgent care. Pt states she has back pain and epigastric pain that started Sunday. Non-Smoker Diabetic Stroke TECHNIQUE: Frontal and lateral radiographic view(s) of the chest. COMPARISON: Chest radiographs dated 05/15/2023. FINDINGS: LUNGS: No focal opacity, pleural effusion, or pneumothorax. HEART/MEDIASTINUM: Cardiac silhouette normal in size. Mediastinal and hilar contours appear normal. LINES/TUBES: None. BONES: No acute osseous abnormality. IMPRESSION: No acute cardiopulmonary abnormality. THIS IS AN ELECTRONICALLY VERIFIED FINAL REPORT 01/25/2025 6:40 PM - Electronically signed by Odilon Godoy M.D. MF: DANA Report ID: [id number] Reading Location: [place] [address] Procedure Note Odilon Godoy, DO - 01/25/2025 EXAM DESCRIPTION: XR CHEST PA LATERAL 2 VIEWS REASON FOR STUDY: sob Pt from urgent care. Pt states she has back pain and epigastric painthat started Sunday. Non-Smoker Diabetic Stroke TECHNIQUE: Frontal and lateral radiographic view(s) of the chest. COMPARISON: Chest radiographs dated 05/15/2023. FINDINGS: LUNGS: No focal opacity, pleural effusion, or pneumothorax. HEART/MEDIASTINUM: Cardiac silhouette normal in size. Mediastinal andhilar contours appear normal. LINES/TUBES: None. BONES: No acute osseous abnormality. IMPRESSION: No acute cardiopulmonary abnormality. THIS IS AN ELECTRONICALLY VERIFIED FINAL REPORT 01/25/2025 6:40 PM - Electronically signed by Odilon Godoy M.D. MF: DANA Report ID: [id number] Reading Location: [place] [address] Niecy PISANO IMG XR PROCEDURES Final Result * (ABNORMAL) Urinalysis reflex to microscopic and culture Urine (01/25/2025 6:09 PM CDT) Color, ur Straw Yellow Clarity, ur Clear Clear [facility] ([facility]) Specific gravity, ur 1.008 1.003 - 1.030 [facility] ([facility]) pH, urine 5.5 [facility] ([facility]) Comment: Interpretive Data U rine pH is affected by diet, medications, systemic acid-base disturbances, and renal tubular function. pH may affect urinary stone formation. For example, urine pH below 6.0 may help reduce the tendency for calcium phosphate stones and pH greater than 6.0 may reduce the tendency for uric acid stone formation. Source: [facility] Current Interpretive Data was last revised on 2017 Protein, ur ql Negative Negative [facility] ([place]) Glucose, ur ql Negative Negative [facility] ([place]) Ketones, ur Negative Negative [facility] ([place]) Bilirubin, ur Negative Negative [facility] ([place]) Blood, ur Trace(A) Negative [facility] ([place]) Urobilinogen, ur <2.0 <2.0 mg/dL [facility] ([place]) Nitrite, ur Negative Negative [facility] ([place]) Leukocyte esterase, ur Negative Negative [facility] ([place]) UA reflex comment Reflex to microscopic UA will be performed. [facility] ([place]) Urine 01/25/2025 6:09 PM CDT 01/25/2025 6:17 PM CDT Niecy [facility] LAB MICROBIOLOGY - GENERAL JOSÉ MANUEL LAM Final Result [facility] ([place]) 1 [facility] Department [place] [address] * (ABNORMAL) Urinalysis, microscopic only (01/25/2025 6:09 PM CDT) WBC, ur 0-5 0 - 5 /HPF RBC, ur 0-2 0 - 2 /HPF [facility] ([place]) Epithelial cells, squamous, ur 1-5 0 - 5 /HPF [facility] ([place]) Bacteria, ur 4+(A) [facility] ([place]) Culture Reflex Comment Reflex conditions for urine culture (WBC >10) not met. [facility] ([place]) Urine 01/25/2025 6:09 PM CDT 01/25/2025 6:17 PM CDT Niecy [facility] URINE ORDERABLES Final Resu lt [facility] ([place]) [address] [facility] [place] [address] * EKG 12 lead office performed (01/25/2025 6:01 PM CDT) Narrative Tanya Da Silva NP - 01/25/2025 6:01 PM CDT Tanya Da Silva NP 01/25/2025 6:06 PM EKG 12 lead office performed Date/Time: 01/25/2025 6:01 PM Performed by: Tanya Da Silva NP Authorized by: Tanya Da Silva NP Compared with previous ECG: Yes Previous ECG date: 01/27/2023 Comparison to previous ECG: New St elevation lead II Rhythm: sinus rhythm Rate: normal QRS axis: Normal Conduction: Normal ST Elevation: II T Wave: Normal Clinical impression: abnormal ECG us Tanya Da Silva NP ECG ORDERABLES Final Result * Troponin T high-sensitivity series (baseline, 2hr, 4hr, 6hr) (01/25/2025 6:01 PM CDT) Trop T hs <6 <=14 ng/L [facility] ([place]) Comment: Interpretive Data For further hscTnT resources including the diagnostic algorithm and an aid in interpretation, copy and paste this link: https://nrl.testcatalog.org/show/hsTrop Current Interpretive Data last revised 2020. Blood 01/25/2025 6:01 PM CDT 01/25/2025 6:09 PM CDT us Niecy [facility] LAB BLOOD ORDERABLES Final Resu lt [facility] ([place]) 1 [facility] [place] [address] * eGFR (01/25/2025 6:01 PM CDT) eGFR 81 >=60 mL/min/1. 73 m2 Comment: Interpretive Data Reference Interval Normal >/= 90 mL/min/1.73m2 Mildly decreased* 60 - 89 mL/min/1.73m2 Mildly to moderately decreased 45 - 59 mL/min/1.73m2 Moderately to severely decreased 30 - 44 mL/min/1.73m2 Severely decreased 15 - 29 mL/min/1.73m2 Kidney Failure < 15 mL/min/1.73m2 *Relative to young adult level Estimated glomerular filtration rate is determined by the 2020 CKD-EPI equation recommended by the National Kidney Foundation (A Unifying Approach to GFR Estimation: Recommendations of the NKF-ASK Task Force on Reassessing the Inclusion of Race in Diagnosing Kidney Disease, JASN 2020). The CKD-EPI equation should not be used for patients with unstable renal function and has not been validated in children and those over 70. Current interpretive data was last reviewed 2021. Blood 01/25/2025 6:01 PM CDT 01/25/2025 6:09 PM CDT us Niecy [facility] LAB BLOOD ORDERABLES Final Resu lt [facility] ([facility]) 1 [facility] Department of Laboratories [place] [id number] * Differential, auto (01/25/2025 6:01 PM CDT) Neutrophil abs 4.46 1.50 - 6.50 K/cumm Imm gran abs 0.02 0.00 - 0.10 K/cumm [facility] ([place]) Lymphocyte abs 0.80 0.80 - 3.30 K/cumm [facility] ([place]) Monocyte abs 0.35 0.20 - 0.80 K/cumm [facility] ([place]) Eosinophil abs 0.17 0.00 - 0.50 K/cumm [facility] ([place]) Basophil abs 0.06 0.00 - 0.10 K/cumm [facility] ([place]) Neutrophil pct 76.1 % [facility] ([place]) Comment: Interpretive Data Percent cell count reference ranges are not reported, since discordance with absolute values may lead to misinterpretation of CBC data. Current Interpretive Data was last revised on 2017. Imm gran pct 0.3 % [facility] ([place]) Comment: Interpretive Data Percent cell count reference ranges are not reported, since discordance with absolute values may lead to misinterpretation of CBC data. Current Interpretive Data was last revised on 2017. Lymphocyte pct 13.7 % [facility] ([place]) Comment: Interpretive Data Percent cell count reference ranges are not reported, since discordance with absolute values may lead to misinterpretation of CBC data. Current Interpretive Data was last revised on 2017. Monocyte pct 6.0 % [facility] ([place]) Comment: Interpretive Data Percent cell count reference ranges are not reported, since discordance with absolute values may lead to misinterpretation of CBC data. Current Interpretive Data was last revised on 2017. Eosinophil pct 2.9 % [facility] ([place]) Comment: Interpretive Data Percent cell count reference ranges are not reported, since discordance with absolute values may lead to misinterpretation of CBC data. Current Interpretive Data was last revised on 2017. Basophil pct 1.0 % [facility] ([place]) Comment: Interpretive Data Percent cell count reference ranges are not reported, since discordance with absolute values may lead to misinterpretation of CBC data. Current Interpretive Data was last revised on 2017. Blood 01/25/2025 6:01 PM CDT 01/25/2025 6:09 PM CDT us Niecy [facility] BLOOD ORDERABLES Final Resu lt [facility] ([place]) 1 [facility] Department [place] [address] * Pro B-type natriuretic peptide (01/25/2025 6:01 PM CDT) NT-proBNP 100 <=300 pg/mL [facility] ([place]) Comment: Interpretive Comments: A. Dyspnea in Acute Care Setting All Ages: < 300 pg/ml, acute heart failure unlikely. < 50 yrs: 300 - 450 pg/ml, further investigation warranted. > 450 pg/ml, acute heart failure likely. 50 - 74 yrs: 300 - 900 pg/ml, further investigation warranted. > 900 pg/ml, acute heart failure likely . > or = 75 yrs: 450 - 1800 pg/ml, further investigation warranted. > 1800 pg/ml, acute heart failure likely. B. Non-acute Setting < 75 yrs < 125 pg/ml, rules out heart failure. > or = 125 pg/ml, further investigation warranted. > or = 75 yrs < 450 pg/ml, rules out heart failure. > or = 450 pg/ml, further investigation warranted. - Knowledge of each individual patient's NT-proBNP range may be more useful than using similar cut-points for every patient. Please note that marked elevations in NT-proBNP levels may be observed in state other than Left Ventricular Congestive Failure, including: acute coronary syndromes, right heart strain/failure (including pulmonary embolism and cor pulmonale), critical illness, renal failure, as well as advanced age. - References: 1. Xavi LEARY et.al. Eur Heart J. 2006:27:330-337. 2. Harriet RW, Kiara FUCHS. J. AM [place] Cardiol: Cardiovasc Imag. 2009;2: 216- 225. Interpretive Data Last Revised Date: 2018. Blood 01/25/2025 6:01 PM CDT 01/25/2025 6:09 PM CDT us Niecy [facility] LAB BLOOD ORDERABLES Final Resu lt [facility] ([place]) 1 [facility] Department [place] [address] * CBC with auto differential (01/25/2025 6:01 PM CDT) WBC 5.86 3.80 - 9.90 K/cumm Hgb 13.5 11.9 - 15.5 g/dL [facility] ([place]) Hct 41.3 35.6 - 45.5 % [facility] ([place]) Plt 195 150 - 400 K/cumm [facility] ([place]) MPV 9.7 9.1 - 12.3 fL [facility] ([place]) RBC 4.51 3.90 - 5.20 M/cumm [facility] ([place]) MCV 91.6 81.3 - 96.4 fL [facility] ([place]) MCH 29.9 27.1 - 33.3 pg [facility] ([place]) MCHC 32.7 32.3 - 35.7 g/dL [facility] ([place]) RDW CV 14.0 11.1 - 14.9 % [facility] ([place]) RDW SD 47.3 35.7 - 48.1 fL [facility] ([place]) NRBC abs 0.00 0.00 - 0.01 K/cumm [facility] ([place]) Blood 01/25/2025 6:01 PM CDT 01/25/2025 6:09 PM CDT us Niecy [facility] BLOOD ORDERABLES Final Resu lt [facility] ([place]) 1 [facility] Department [place] [address] * (ABNORMAL) D-dimer, quantitative (01/25/2025 6:01 PM CDT) D-Dimer 791(H) <=499 ng/mL FEU [facility] ([place]) Comment: Interpretive data FDA approved the D-dimer, in conjunction with a low or moderate pretest probability score, to exclude venous thromboembolic events (VTE) (PE and DVT) in outpatients when the D-dimer result is < 500 ng/ml FEU. Evidence supports using an age-adjusted D-dimer cut-off for outpatients older than 50 (age x 10) to improve specificity without sacrificing sensitivity. Example: age 68, VTE cut-off 680 ng/ml FEU. References; Schouten HT et al. Brit Med J. 2013;346:f2492. Mare et al. Annals Int Med. 2015;163:701-11. Current interpretive data was last revised on 2019. Blood 01/25/2025 6:01 PM CDT 01/25/2025 6:09 PM CDT us Niecy [facility] BLOOD ORDERABLES Final Resu lt [facility] ([place]) 1 [facility] Department [place] [address] * (ABNORMAL) Comprehensive metabolic panel (01/25/2025 6:01 PM CDT) Sodium 138 135 - 145 mmol/L [facility] ([place]) Potassium, pl 4.2 3.3 - 4.9 mmol/L [facility] ([place]) Chloride 102 97 - 110 mmol/L [facility] ([place]) CO2 24 22 - 32 mmol/L [facility] ([place]) Anion gap 12 2 - 15 mmol/L [facility] ([place]) BUN 14 6 - 25 mg/dL [facility] ([place]) Creatinine 0.78 0.60 - 1.10 mg/dL [facility] ([place]) Glucose 175 70 - 199 mg/dL [facility] ([place]) Comment: Interpretive Data Fasting glucose >/= 126 mg/dl is diagnostic for diabetes. Fasting is defined as no caloric intake for at least 8 hours. Fasting glucose between 100 mg/dl to 125 mg/dl is diagnostic of prediabetes. In a patient with classic symptoms of hyperglycemia or hyperglycemic crisis, a random glucose >/= 200 mg/dl is diagnostic for diabetes. In the absence of unequivocal hyperglycemia, results should be confirmed by repeat testing. The classification and Diagnosis of Diabetes Diabetes Care 2021; 46: S19-S40. Current interpretive data was last revised 2022. Calcium 9.6 8.5 - 10.3 mg/dL [facility] ([place]) Bilirubin, total 1.3(H) 0.1 - 1.2 mg/dL [facility] ([place]) Protein, pl 7.2 6.5 - 8.5 g/dL [facility] ([place]) Albumin 4.3 3.5 - 5.0 g/dL [facility] ([place]) Alk phos 83 40 - 130 Units/L [facility] ([place]) ALT 18 7 - 45 Units/L [facility] ([place]) AST 18 10 - 45 Units/L [facility] ([place]) Blood 01/25/2025 6:01 PM CDT 01/25/2025 6:09 PM CDT us Niecy [facility] LAB BLOOD ORDERABLES Final Resu lt Performing Organization Address City/[facility] Co de Phone Number [facility] ([place]) 1 [facility] Department [place] [address] * ECG 12 lead (01/25/2025 5:23 PM CDT) 01/25/2025 5:23 PM CDT Narrative [facility] - 01/26/2025 7:00 AM CDT Vent Rate: 66 bpm RR Interval: 908 msec [place] Interval: 203 msec QRS Duration: 87 msec QT Interval: 376 msec QTC Interval: 389 msec P-R-T [place]: 67 - 43 - 35 degrees IMPRESSION: SINUS RHYTHM NORMAL ECG NO CHANGE FROM PREVIOUS TRACING NOTED Electronically Signed By: Howie Elizondo MD Karina Gagnon MD ECG ORDERABLES Final R esult Performing Organization Address [facility] Co de Phone Number [facility] DeRev [facility] * ECG 12 lead (01/25/2025 3:32 PM CDT) Tanya Da Silva NP ECG ORDERABLES Final Result * CT Abdomen Pelvis W Contrast (12/03/2024 8:10 PM CDT) Anatomical Region Laterality Modality Body N/A Computed Tomogra phy 12/03/2024 8:21 PM CDT Narrative 12/03/2024 8:41 PM CDT EXAM DESCRIPTION: CT ABDOMEN PELVIS W CONTRAST REASON FOR STUDY: RLQ abdominal pain RLQ pain onset Sat with nausea TECHNIQUE: CT scan of the abdomen and pelvis performed with intravenous and without oral contrast using helical scanning technique with dynamic intravenous contrast injection. Reconstructed coronal and sagittal MPR images reviewed. All images stored on PACS. Automated exposure control was used as a dose optimization technique for this examination. CONTRAST TYPE/DOSE: 75mL of IOVERSOL 350 MG IODINE/ML INTRAVENOUS SYRINGE injected COMPARISON: 02/01/2024 FINDINGS: LOWER CHEST: Mild scattered subsegmental atelectasis. No pleural effusion. Imaged portions of the heart and esophagus are within normal limits. LIVER: Normal size. No identified cystic or solid masses. Mild diffuse hepatic steatosis. The hepatic and portal veins are patent. GALLBLADDER: Prior cholecystectomy. BILE DUCTS: Mild intrahepatic biliary ductal dilatation with normal caliber of the extrahepatic bile ducts most likely due to prior cholecystectomy and reservoir effect. SPLEEN: Normal size. No focal lesions. A splenule is present. PANCREAS: Mild pancreatic atrophy. No identified cystic or solid masses. No significant calcifications. No adjacent inflammation or peripancreatic fluid collections. Pancreatic duct not dilated. ADRENALS: Normal. KIDNEYS/URINARY TRACT: No identified significant cystic or solid masses. No visualized stones. No hydronephrosis or hydroureter. Symmetric enhancement. Urinary bladder is unremarkable. GI: The stomach is normal. The small bowel and colon are normal in course and caliber with no evidence of obstruction or inflammation. No CT evidence of acute appendicitis. PERITONEUM: No ascites or free air. No lymphadenopathy. RETROPERITONEUM: No mass or adenopathy. REPRODUCTIVE: Slight enlargement of the prostate gland. VASCULATURE: No abdominal aortic aneurysm. The abdominal aorta and its branches are patent. MUSCULOSKELETAL: No acute fractures or aggressive osseous lesions IMPRESSION: 1. No discrete CT findings to explain patient's abdominal pain. THIS IS AN ELECTRONICALLY VERIFIED FINAL REPORT 12/03/2024 8:41 PM - Electronically signed by Kianna Snider M.D. AT: AT Report ID: [id number] Reading Location: [id number] Procedure Note Kianna Snider MD - 12/03/2024 EXAM DESCRIPTION: CT ABDOMEN PELVIS W CONTRAST REASON FOR STUDY: RLQ abdominal pain RLQ pain onset Sat with nausea TECHNIQUE: CT scan of the abdomen and pelvis performed with intravenousand without oral contrast using helical scanning technique with dynamic intravenous contrast injection. Reconstructed coronal and sagittal MPRimages reviewed. All images stored on PACS. Automated exposure control was usedas a dose optimization technique for this examination. CONTRAST TYPE/DOSE: 75mL of IOVERSOL 350 MG IODINE/ML INTRAVENOUSSYRINGE injected COMPARISON: 02/01/2024 FINDINGS: LOWER CHEST: Mild scattered subsegmental atelectasis. No pleuraleffusion. Imaged portions of the heart and esophagus are within normal limits. LIVER: Normal size. No identified cystic or solid masses. Milddiffuse hepatic steatosis. The hepatic and portal veins are patent. GALLBLADDER: Prior cholecystectomy. BILE DUCTS: Mild intrahepatic biliary ductal dilatation with normalcaliber of the extrahepatic bile ducts most likely due to prior cholecystectomyand reservoir effect. SPLEEN: Normal size. No focal lesions. A splenule is present. PANCREAS: Mild pancreatic atrophy. No identified cystic or solid masses.No significant calcifications. No adjacent inflammation or peripancreaticfluid collections. Pancreatic duct not dilated. ADRENALS: Normal. KIDNEYS/URINARY TRACT: No identified significant cystic or solid masses.No visualized stones. No hydronephrosis or hydroureter. Symmetricenhancement. Urinary bladder is unremarkable. GI: The stomach is normal. The small bowel and colon are normal incourse and caliber with no evidence of obstruction or inflammation. No CTevidence of acute appendicitis. PERITONEUM: No ascites or free air. No lymphadenopathy. RETROPERITONEUM: No mass or adenopathy. REPRODUCTIVE: Slight enlargement of the prostate gland. VASCULATURE: No abdominal aortic aneurysm. The abdominal aorta and its branches are patent. MUSCULOSKELETAL: No acute fractures or aggressive osseous lesions IMPRESSION: 1. No discrete CT findings to explain patient's abdominal pain. THIS IS AN ELECTRONICALLY VERIFIED FINAL REPORT 12/03/2024 8:41 PM - Electronically signed by Kianna Snider M.D. AT: AT Report ID: [id number] Reading Location: [id number] [place] PISANO IMG CT PROCEDURES Final Resu lt * (ABNORMAL) Urinalysis reflex to microscopic and culture Urine (12/03/2024 3:55 PM CDT) Color, ur Yellow Yellow Clarity, ur Clear Clear [facility] ([place]) Specific gravity, ur 1.014 1.003 - 1.030 [facility] ([place]) pH, urine 6.0 [facility] ([place]) Comment: Interpretive Data U rine pH is affected by diet, medications, systemic acid-base disturbances, and renal tubular function. pH may affect urinary stone formation. For example, urine pH below 6.0 may help reduce the tendency for calcium phosphate stones and pH greater than 6.0 may reduce the tendency for uric acid stone formation. Source: [facility] Current Interpretive Data was last revised on 2017 Protein, ur ql Negative Negative [facility] ([place]) Glucose, ur ql Negative Negative [facility] ([place]) Ketones, ur Negative Negative [facility] ([place]) Bilirubin, ur Negative Negative [facility] ([place]) Blood, ur Trace(A) Negative [facility] ([place]) Urobilinogen, ur <2.0 <2.0 mg/dL [facility] ([place]) Nitrite, ur Negative Negative [facility] ([place]) Leukocyte esterase, ur Negative Negative [facility] ([place]) UA reflex comment Reflex to microscopic UA will be performed. [facility] ([place]) Urine 12/03/2024 3:55 PM CDT 12/03/2024 4:00 PM CDT Luisito Doty MD LAB MICROBIOLOGY - GENERAL O RDERABLES Final Result [facility] ([place]) 1 [facility] Department [place] [address] * (ABNORMAL) Urinalysis, microscopic only (12/03/2024 3:55 PM CDT) WBC, ur 0-5 0 - 5 /HPF RBC, ur 0-2 0 - 2 /HPF [facility] ([place]) Epithelial cells, squamous, ur 1-5 0 - 5 /HPF [facility] ([place]) Mucous, ur Present(A) [facility] ([place]) Culture Reflex Comment Reflex conditions for urine culture (WBC >10) not met. [facility] ([place]) Urine 12/03/2024 3:55 PM CDT 12/03/2024 4:00 PM CDT us Luisito E. Doty MD LAB URINE ORDERABLES Final R esult [facility] ([facility]) 1 [facility] [place] [place] [address] * eGFR (12/03/2024 2:48 PM CDT) eGFR 75 >=60 mL/min/1. 73 m2 Comment: Interpretive Data Reference Interval Normal >/= 90 mL/min/1.73m2 Mildly decreased* 60 - 89 mL/min/1.73m2 Mildly to moderately decreased 45 - 59 mL/min/1.73m2 Moderately to severely decreased 30 - 44 mL/min/1.73m2 Severely decreased 15 - 29 mL/min/1.73m2 Kidney Failure < 15 mL/min/1.73m2 *Relative to young adult level Estimated glomerular filtration rate is determined by the 2020 CKD-EPI equation recommended by the National Kidney Foundation (A Unifying Approach to GFR Estimation: Recommendations of the NKF-ASK Task Force on Reassessing the Inclusion of Race in Diagnosing Kidney Disease, JASN 2020). The CKD-EPI equation should not be used for patients with unstable renal function and has not been validated in children and those over 70. Current interpretive data was last reviewed 2021. Blood 12/03/2024 2:48 PM CDT 12/03/2024 2:51 PM CDT Luisito Doty MD LAB BLOOD ORDERABLES Final R esult [facility] ([place]) [address] [facility] [place] [address] * Differential, auto (12/03/2024 2:48 PM CDT) Neutrophil abs 2.92 1.50 - 6.50 K/cumm Imm gran abs 0.01 0.00 - 0.10 K/cumm [facility] ([facility]) Lymphocyte abs 0.86 0.80 - 3.30 K/cumm [facility] ([place]) Monocyte abs 0.35 0.20 - 0.80 K/cumm [facility] ([place]) Eosinophil abs 0.17 0.00 - 0.50 K/cumm [facility] ([place]) Basophil abs 0.05 0.00 - 0.10 K/cumm [facility] ([place]) Neutrophil pct 67.1 % [facility] ([place]) Comment: Interpretive Data Percent cell count reference ranges are not reported, since discordance with absolute values may lead to misinterpretation of CBC data. Current Interpretive Data was last revised on 2017. Imm gran pct 0.2 % [facility] ([place]) Comment: Interpretive Data Percent cell count reference ranges are not reported, since discordance with absolute values may lead to misinterpretation of CBC data. Current Interpretive Data was last revised on 2017. Lymphocyte pct 19.7 % [facility] ([facility]) Comment: Interpretive Data Percent cell count reference ranges are not reported, since discordance with absolute values may lead to misinterpretation of CBC data. Current Interpretive Data was last revised on 2017. Monocyte pct 8.0 % [facility] ([facility]) Comment: Interpretive Data Percent cell count reference ranges are not reported, since discordance with absolute values may lead to misinterpretation of CBC data. Current Interpretive Data was last revised on 2017. Eosinophil pct 3.9 % [facility] ([facility]) Comment: Interpretive Data Percent cell count reference ranges are not reported, since discordance with absolute values may lead to misinterpretation of CBC data. Current Interpretive Data was last revised on 2017. Basophil pct 1.1 % [facility] ([facility]) Comment: Interpretive Data Percent cell count reference ranges are not reported, since discordance with absolute values may lead to misinterpretation of CBC data. Current Interpretive Data was last revised on 2017. Blood 12/03/2024 2:48 PM CDT 12/03/2024 2:51 PM CDT us Luisito Doty MD LAB BLOOD ORDERABLES Final R esult [facility] ([place]) 1 [facility] Department [place] [address] * CBC with auto differential (12/03/2024 2:48 PM CDT) WBC 4.36 3.80 - 9.90 K/cumm Hgb 13.5 11.9 - 15.5 g/dL [facility] ([place]) Hct 41.1 35.6 - 45.5 % [facility] ([place]) Plt 205 150 - 400 K/cumm [facility] ([place]) MPV 9.4 9.1 - 12.3 fL [facility] ([place]) RBC 4.53 3.90 - 5.20 M/cumm [facility] ([place]) MCV 90.7 81.3 - 96.4 fL [facility] ([place]) MCH 29.8 27.1 - 33.3 pg [facility] ([place]) MCHC 32.8 32.3 - 35.7 g/dL [facility] ([place]) RDW CV 14.2 11.1 - 14.9 % [facility] ([place]) RDW SD 47.5 35.7 - 48.1 fL [facility] ([place]) NRBC abs 0.00 0.00 - 0.01 K/cumm [facility] ([place]) Blood Venous blood specimen / Unknown 12/03/2024 2:48 PM CDT 12/03/2024 2:51 PM CDT Luisito Doty MD LAB BLOOD ORDERABLES Final R esult [facility] ([place]) 1 [facility] Department [place] [address] * Lipase (12/03/2024 2:48 PM CDT) Lipase 19 10 - 99 Units/L [facility] ([place]) Blood Venous blood specimen / Unknown 12/03/2024 2:48 PM CDT 12/03/2024 2:51 PM CDT Luisito Doty MD LAB BLOOD ORDERABLES Final R esult [facility] ([place]) 1 [facility] Department [place] [address] * (ABNORMAL) Comprehensive metabolic panel (12/03/2024 2:48 PM CDT) Sodium 138 135 - 145 mmol/L [facility] ([place]) Potassium, pl 4.2 3.3 - 4.9 mmol/L [facility] ([place]) Chloride 103 97 - 110 mmol/L [facility] ([place]) CO2 25 22 - 32 mmol/L [facility] ([place]) Anion gap 10 2 - 15 mmol/L [facility] ([place]) BUN 11 6 - 25 mg/dL [facility] ([place]) Creatinine 0.83 0.60 - 1.10 mg/dL [facility] ([place]) Glucose 129 70 - 199 mg/dL [facility] ([place]) Comment: Interpretive Data Fasting glucose >/= 126 mg/dl is diagnostic for diabetes. Fasting is defined as no caloric intake for at least 8 hours. Fasting glucose between 100 mg/dl to 125 mg/dl is diagnostic of prediabetes. In a patient with classic symptoms of hyperglycemia or hyperglycemic crisis, a random glucose >/= 200 mg/dl is diagnostic for diabetes. In the absence of unequivocal hyperglycemia, results should be confirmed by repeat testing. The classification and Diagnosis of Diabetes Diabetes Care 2021; 46: S19-S40. Current interpretive data was last revised 2022. Calcium 9.2 8.5 - 10.3 mg/dL [facility] ([place]) Bilirubin, total 1.6(H) 0.1 - 1.2 mg/dL [facility] ([place]) Protein, pl 7.1 6.5 - 8.5 g/dL [facility] ([place]) Albumin 4.3 3.5 - 5.0 g/dL [facility] ([place]) Alk phos 75 40 - 130 Units/L [facility] ([place]) ALT 16 7 - 45 Units/L [facility] ([place]) AST 21 10 - 45 Units/L [facility] ([place]) Blood 12/03/2024 2:48 PM CDT 12/03/2024 2:51 PM CDT Luisito Doty MD LAB BLOOD ORDERABLES Final R esult [facility] ([facility]) [facility] [facility] Department [place] [address] * Lipid panel (11/26/2024 10:15 AM CDT) Cholesterol 143 30 - 199 mg/dL Comment: Interpretive Data Ages < or = 19 years Acceptable: <170 mg/dL Borderline high: 170-199 mg/dL High: >or= 200 mg/dL Ages > or = 20 years Desirable: <200 mg/dL Borderline high: 200-239 mg/dL High: >or= 240 mg/dL Literature References: 1. Expert Panel on Integrated Guidelines for Cardiovascular Health and Risk Reduction in Children and Adolescents. Pediatrics 2011;128:S213 2. NCEP Expert Panel. Circulation 2004;110:227 Current Interpretive Data was last revised on 2018. Triglycerides 121 <=149 mg/dL MAR ISLAS (ERINN) Comment: Interpretive Data Ages < or = 9 years Acceptable: <75 mg/dL Borderline high: 75-99 mg/dL High: >or= 100 mg/dL Ages 10 to 20 years Acceptable: <90 mg/dL Borderline high: 90-129 mg/dL High: >or= 130 mg/dL Ages > or = 20 years Desirable: <150 mg/dL Borderline high: 150-199 mg/dL High: 200-499 mg/dL Very high: >or= 499 mg/dL Literature References: 1. Expert Panel on Integrated Guidelines for Cardiovascular Health and Risk Reduction in Children and Adolescents. Pediatrics 2011;128:S213 2. NCEP Expert Panel. Circulation 2004;110:227 Current Interpretive Data was last revised on 2018. HDL 53 >=40 mg/dL MAR Flanagan (ERINN) Comment: Interpretive Data Ages < or = 19 years Acceptable: >45 mg/dL Borderline low: 40-45 mg/dL Low: <40 mg/dL Ages > or = 20 years Desirable: >or= 60 mg/dL Low: <40 mg/dL Literature References: 1. Expert Panel on Integrated Guidelines for Cardiovascular Health and Risk Reduction in Children and Adolescents. Pediatrics 2011;128:S213 2. NCEP Expert Panel. Circulation 2004;110:227 Current Interpretive Data was last revised on 2018. LDL, calculated 69 <=129 mg/dL MAR SAENZ) Comment: Interpretive Data Ages < or = 19 years Acceptable: <110 mg/dL Borderline high: 110-129 mg/dL High: >or= 130 mg/dL Ages > or = 20 years Optimal: <100 mg/dL Near optimal: 100-129 mg/dL Borderline high: 130-159 mg/dL High: >160 mg/dL Calculated using the Rupert LDL-C estimating equation. This equation was implemented on 2024. Prior to this date LDL-C was estimated using the Friedewald equation. Literature References: 1. Expert Panel on Integrated Guidelines for Cardiovascular Health and Risk Reduction in Children and Adolescents. Pediatrics 2011;128:S213 2. NCEP Expert Panel. Circulation 2004;110:227 3. Rupert Arteaga et al. JULIEN Cardiol. 2020 September 18;5(5):540-548. doi: 10.1001/jamacardio.2020.0013 Current Interpretive Data was last revised on 2024. Non-HDL Cholesterol 90 mg/dL MAR SAENZ) Comment: Interpretive Data Ages < or = 19 years Acceptable: <120 mg/dL Borderline high: 120-144 mg/dL High: >145 mg/dL Ages > or = 20 years When triglycerides are >200 mg/dL, Non-HDL cholesterol is a secondary target of therapy with treatment goals that are 30 mg/dL greater than the LDL cholesterol target. Literature References: 1. Expert Panel on Integrated Guidelines for Cardiovascular Health and Risk Reduction in Children and Adolescents. Pediatrics 2011;128:S213 2. NCEP Expert Panel. Circulation 2004;110:227 Current Interpretive Data was last revised on 2018. Chol/HDL ratio 3 LOUIE SAENZ) Blood 11/26/2024 10:1 5 AM CDT 11/26/2024 10:57 AM CDT Narrative MAR SAENZ) - 11/26/2024 11:29 AM CDT Has the patient been fasting for 8 hours or more?->Yes Star Villalobos MD LAB BLOOD ORDERABLES Fi nal Result MAR ISLAS (ERINN) 1 [facility] Department [place] [address] * SCREENING MAMMOGRAM BILATERAL W JOSEPH (08/09/2024 2:09 PM CDT) Anatomical Region Laterality Modality Breast Bilateral Mammography 08/11/2024 10:5 5 AM CDT Impressions 08/11/2024 10:55 AM CDT There is no mammographic evidence to suggest malignancy. The patient may continue screening mammography as per ACR guidelines. FINAL ASSESSMENT: BI-RADS Category 1: Negative. Electronically signed by: Anu Barroso M.D. Narrative 08/11/2024 10:55 AM CDT EXAMINATION: BILATERAL SCREENING MAMMOGRAM WITH TOMOGRAPHY HISTORY: Screening. COMPARISON(S): 2023, 2022, and 2021 TECHNIQUE: Full-field 2D images and digital tomosynthesis images were obtained. CAD was utilized. BREAST PARENCHYMAL COMPOSITION: There are scattered areas of fibroglandular density. FINDINGS: There are no suspicious masses. No suspicious calcifications are seen. There is no unexplained architectural distortion. There is no skin thickening seen. There are no mammographically abnormal lymph nodes seen in the axillae or elsewhere. Star Villalobos MD IMG MAMMO PROCEDURES Fi nal Result * Albumin Creatinine Ratio, Urine (06/17/2024 11:24 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) Albumin Ur <12.0 mg/L Comment: Interpretive Data No reference range established. Current interpretive data was last revised 2018. Creatinine Ur 173.2 mg/dL [facility] Comment: Interpretive Data No reference range established. Current interpretive data was last revised 2018. Albumin Creatinine Ratio, Ur <7 1 - 29 mg/g MAR Urine 06/17/2024 11:2 4 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 06/17/2024 9:22 PM 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 PROFESSOR Star Villalobos MD LAB URINE ORDERABLES Fi nal Result MAR COLLINS [address] [address] Department [place] [address] * Diabetic Eye Exam (03/11/2024) us Generic External Data Provider HEALTH MAINTENANC E Final Result * Dexa Axial Skeleton Bone Density 1 or 2 Site (03/15/2023 2:11 PM CDT) Anatomical Region Laterality Modality Body N/A Other 03/15/2023 6:25 PM CDT Narrative 03/15/2023 6:31 PM CDT EXAM DESCRIPTION: DEXA AXIAL SKELETON BONE DENSITY 1 OR MORE SITES REASON FOR STUDY: 67 y/o year old F with given history of: postmenopausal Osteoporosis screening 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 FINDINGS: AP LUMBAR SPINE L1-L4: Total BMD is 1.229 g/cm2 T-score is 1.7 LEFT HIP: Total BMD is 0.925 g/cm2 T-score is -0.1 Femoral neck BMD is 0.739 g/cm2 T-score is -1.0 FRAX: FRAX not reported due to T-scores of hip, femoral neck and/or spine being at or above -1.0 (Normal). IMPRESSION: Normal bone mass. REFERENCE: Bone mineral density: Normal (T-score above or = -1.0) Low bone mass (T-score between -1.0 and -2.5) replaces the previously used term osteopenia Osteoporosis (T-score = or below -2.5) Medical evaluation for secondary causes of low bone mineral density may be appropriate. FRAX is a World Health Organization validated fracture risk assessment tool that calculates a person's 10 year probability of a major osteoporosis related fracture and hip fracture. According to the National Osteoporosis Foundation guidelines, postmenopausal women and men age 50 or older with low bone mass and a 10 year probability of a major osteoporosis related fracture = or greater than 20% or a 10 year probability of a hip fracture = or greater than 3% should be considered for treatment. For further information, including treatment recommendations, please refer to the 2019 ISCD Official Positions (http://www.iscd.org) and the NOF's Clinician's Guide to Prevention and Treatment of Osteoporosis (http://www.nof.org/professionals/clinical-guidelines) THIS IS AN ELECTRONICALLY VERIFIED FINAL REPORT 03/15/2023 6:31 PM - Electronically signed by Odilon Maki M.D. 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 FINDINGS: AP LUMBAR SPINE L1-L4: Total BMD is 1.229 g/cm2 T-score is 1.7 LEFT HIP: Total BMD is 0.925 g/cm2 T-score is -0.1 Femoral neck BMD is 0.739 g/cm2 T-score is -1.0 FRAX: FRAX not reported due to T-scores of hip, femoral neck and/or spine beingat or above -1.0 (Normal). IMPRESSION: Normal bone mass. REFERENCE: Bone mineral density: Normal (T-score above or = -1.0) Low bone mass (T-score between -1.0 and -2.5) replaces thepreviously used term osteopenia Osteoporosis (T-score = or below -2.5) Medical evaluation for secondary causes of low bone mineral density may be appropriate. FRAX is a World Health Organization validated fracture risk assessmenttool that calculates a person's 10 year probability of a major osteoporosisrelated fracture and hip fracture. According to the National OsteoporosisFoundation guidelines, postmenopausal women and men age 50 or older with low bonemass and a 10 year probability of a major osteoporosis related fracture = or greater than 20% or a 10 year probability of a hip fracture = or greaterthan 3% should be considered for treatment. For further information, including treatment recommendations, please referto the 2019 ISCD Official Positions (http://www.iscd.org) and the NOF's Clinician's Guide to Prevention and Treatment of Osteoporosis (http://www.nof.org/professionals/clinical-guidelines) THIS IS AN ELECTRONICALLY VERIFIED FINAL REPORT 03/15/2023 6:31 PM - Electronically signed by Odilon Maki M.D. MF: DANA Report ID: [id number] Reading Location: [place] [address] [facility] Odilon Villalobos MD IMG DXA PROCEDURES Janis l Result * COLONOSCOPY (03/29/2022 7:55 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) Anatomical Region Laterality Modality Other Narrative Procedure Note Humberto Mueller MD - 03/29/2022 7:55 AM CST [facility] Patient Name: Tino Ribeiro Procedure Date: 03/29/2022 7:55 AM Date of : 1955 Admit Type: Outpatient Age: 66 Gender: Female Attending MD: Humberto Mueller M.D. Room: [facility] ENDOSCOPY ROOM 1 Note Status: Finalized Patient Profile: This is a 66 year old female. History of adenoma polyps. No family history of colon cancer. Patienthas complains of several episodes of bright redbleeding per rectum. Procedure: Colonoscopy Indications: High risk colon cancer surveillance: Personalhistory of colonic polyps, Last colonoscopy: 2014 Referring MD: Star Villalobos M.D. Providers: Humberto Mueller M.D. Impression: - External hemorrhoids found on perianal exam. - The entire examined colon is normal. - Internal hemorrhoids. Treated with infrared coagulation (IRC). - No specimens collected. Recommendation: - Repeat colonoscopy in 5 years for screeningpurposes. - Continue present medications. Medicines: Monitored Anesthesia Care Complications: No immediate complications. Estimated Blood Loss: Estimated blood loss: none. Procedure: Pre-Anesthesia Assessment: - Prior to the procedure, a History and Physicalwas performed, and patient medications and allergieswere reviewed. The patient's tolerance of previous anesthesia was also reviewed. The risks andbenefits of the procedure and the sedation options and risks were discussed with the patient. All questions were answered, and informed consent was obtained. Prior Anticoagulants: The patient has taken noanticoagulant or antiplatelet agents. ASA Grade Assessment: III -A patient with severe systemic disease. Afterreviewing the risks and benefits, the patient was deemed in satisfactory condition to undergo the procedure. The benefits, risks and alternatives of theprocedure and sedation were discussed and informed consentwas obtained. All questions were answered. Please referto the signed informed consent document in the medical record. The bowel preparation used was Miralax and bisacodyl tablets via split dose instruction. The scope was passed under direct vision. The Pediatric Colonoscope [id number]-[id number] was introducedthrough the anus and advanced to the the cecum, identifiedby appendiceal orifice and ileocecal valve. Thequality of the bowel preparation was excellent. Bowel prepwas administered using a split dose. Findings: Small to medium-sized external hemorrhoids were found on perianalexam. The cecum appeared normal. The colon (entire examined portion) appeared normal. No polyps and no mass lesions noted Internal hemorrhoids were found during retroflexion. The hemorrhoids were medium-sized. Coagulation for hemostasis using IRC (Infrared Coagulation) was successful. Electronically signed by Humberto Mueller M.D. Humberto Mueller M.D. 03/29/2022 9:47:07 AM Number of Addenda: 0 Note Initiated On: 03/29/2022 7:55 AM Procedure Code(s): --- Professional --- 53211, Colonoscopy, flexible; with control of bleeding, any method Diagnosis Code(s): --- Professional --- Z86.010, Personal history of colonic polyps K64.8, Other hemorrhoids CPT copyright 2020 [employer]. All rights reserved. The codes documented in this report are preliminary and upon steamfitter supervisor reviewmay be revised to meet current compliance requirements. Recognized by the [employer] for promoting quality in endoscopy Humberto Mueller MD ENDOSCOPY PROCEDURES Final Result * Hepatitis C antibody (12/02/2020 9:52 AM CDT) Hep C Ab Nonreactive Nonreactive MAR ISLAS (ERINN) Comment: Interpretive Data Nonreactive: Antibodies to HCV not detected. Does NOT exclude the possibility of recent exposure to HCV. Equivocal: Equivocal for HCV antibodies. Supplemental molecular testing will be automatically performed to determine infection status in accordance with current CDC screening recommendations. Reactive: Positive for HCV antibodies. This may represent current or past HCV infection. Supplemental molecular testing will be automatically performed to determine current infection status in accordance with current CDC screening recommendations. Interpretive data was last revised on 2019. Testing performed by: [facility], [address] [place] [address], [place]., [address] Blood specimen (specimen) 12/02/2020 9:52 AM CDT 12/02/2020 4:39 PM CDT Star Villalobos MD LAB MICROBIOLOGY - GENE RAL ORDERABLES Final Result [facility] 1 [facility] [place] [address] from Last 3 Months or Most Recently Relevant to Health Maintenance Insurance MEDICARE [facility] Address: [address] [id number] AET SENIOR SUPPLEMENT MEDICARE T SENIOR SUPPLEMENT MEDICARE [facility] SENIOR SUPPLEMENT MEDICARE [employer] SENIOR SUPPLEMENT WORKERS COMPENSATION GENERIC Advance Directives For more information, please contact: [phone] * Full Code (Latest Code Status on File) Date Activated Date Inactivated Comments 01/28/2025 1:55 PM 01/28/2025 10:24 PM * Full Code Date Activated Date Inactivated Comments 01/25/2025 10:33 PM 01/28/2025 1:55 PM * Full Code Date Activated Date Inactivated Comments 11/23/2022 4:23 PM 11/25/2022 3:04 PM * Full Code Date Activated Date Inactivated Comments 03/29/2022 7:54 AM 03/29/2022 2:37 PM * Full Code Date Activated Date Inactivated Comments 03/29/2022 7:54 AM 03/29/2022 7:54 AM Healthcare Agents on File Name Relationship Healthcare Agent Gini Lujan Daughter Health Care Agent Care Teams Meter Reading Clerk Relationship Specialty Start Date End Date Star Villalobos MD [address] [facility] [address] [place], [place] [id number] PCP - General Family Medicine 10/27/24 Karina Ritter DO [address] [place] [address] [address] KALE Mejia [facility] [address] [place] [address] Consulting Physician Otolaryngology 07/16/22 Golden Michelle MD [address] [place] [address] DR MTZ [address] [place] [address] Consulting Physician Pulmonary Disease 07/16/22 Humberto Mueller MD [address] [place] [address] [address] MTZ [address] [place] [address] Consulting Physician Gastroenterology 07/16/22 Josephine Santos, MÓNICA [address] [place] [address] DR MTZ [address] [place] [address] Nurse Practitioner Endocrinology Diabetes & Metabolism 07/16/22 Trey Rosenberg MD [address] [place] [address] DR MTZ [address] [place] [address] Consulting Physician Endocrinology Diabetes & Metabolism 10/12/22 Amado Devi DPM [address] [place] [address] Consulting Physician Orthotics 02/20/23 Adi Vaughn MD [address] [address] Referring Physician Gynecology 12/03/23 Nora Ocampo MD [address] [facility] [address] [place] [address] Referring Physician General Surgery 10/21/24 Marisabel Matamoros MD [address] [place] [address] Referring Physician Dermatology 12/02/24 Leatha Ramirez RN [address] [place] [address] [address] [place] [address] [employer]ringer [employer]ter 01/29/25 [facility] 02/20/23
--- OUTSIDE RECORDS SUMMARY | 2025-02-17 12:27 | XMS_ITS | Clinical Summary ---
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 Gender Identity Not on file Sexual Orientation Not on file Plan of Treatment Health Maintenance Due Date Last Done Comments Colorectal Cancer Screening Colonoscopy (10 Years) 1955 Hepatitis C 11/01/1971 DTaP, Tdap and Td Vaccines ( 1 - Tdap) 1972 Mammogram Screening 1993 Pneumococcal Vaccine: 50+ Ye ars (1 of 1 - PCV) 11/01/2003 Zoster Vaccines (1 of 2) 11/01/2003 Dexa Scan (General) 2018 COVID-19 Vaccine ( - 2023-2 5 season) 2025 RSV Immunization or 60+ Years (1 - 1-dose 75+ series) 2028 Meningococcal B Vaccine Aged Out No l onger eligible based on patient's age to complete this topic Meningococcal Vaccine Aged Out No matthew jesus eligible based on patient's age to complete this topic RSV Immunizations Under 20 Months Aged Out No longer eligible based on patient's age to complete this topic
--- OUTSIDE RECORDS SUMMARY | 2025-02-17 12:28 | XMS_ITS | Encounter Summary ---
Author Organization [facility] Address [address] [place] [address] Care Team Providers Care Sales And Marketing Professional Name Role Phone Roberto Herzog MD Primary Care Provider [phone] Star Villalobos MD Primary Care Provider Karina Ritter DO Unavailable [phone] Golden Michelle MD Unavailable Humberto Mueller MD Unavailable [phone] Josephine Santos NP Unavailable [phone] Star Villalobos MD Primary Care Provider Trey Rosenberg MD Unavailable [phone] Paulette Zacarias MA Unavailable [phone] Juanis Turcios CMA Unavailable [phone] Star Villalobos MD Primary Care Provider Amado Devi DPM Unavailable [phone] Verna Tamayo MA Unavailable Unavailable Adi Vaughn MD Unavailable [phone] Alivia Thomas MA Unavailable Nora Ocampo MD Unavailable Star Villalobos MD Primary Care Provider Marisabel Matamoros MD Unavailable [phone] Michelle Arce MA Unavailable [phone] Leatha Ramirez RN Unavailable [phone] Encounter Details Date Type Department Care Team (Late st Contact Info) Description 05/13/2020 Telephone [facility] [address] [place] [id number] Conchis Wu, RT Social History Tobacco Use Types Packs/Day Years Used Date Smoking Tobacco: Never Smokeless Tobacco: Never Alcohol Use Standard Drinks/Week Comments No 0 (1 standard drink = 0.6 oz pur e alcohol) PHQ-2 Answer Date Recorded PHQ-2 Total Score (If total score is 3 or more points, staff should administer the PHQ-9) 0 04/28/2020 Comments No Sex and Gender Information Value Date Recorded Sex Assigned at Not on file Legal Sex Female 8:58 AM MID LEVEL PROVIDER Gender Identity Female 11/05/2022 9:12 PM CDT Sexual Orientation Straight 11/05/2022 9: 12 PM CDT documented as of this encounter Plan of Treatment Not on file documented as of this encounter Visit Diagnoses Not on filedocumented in this encounter Additional Health Concerns Infection Onset Date Last Indicated Resolved Time COVID: Suspected 09/09/2020 09/09/2020 09/10/2020 11:52 AM CDT COVID: Suspected 12/01/2020 12/01/2020 12/01/2020 4:53 PM CDT COVID: Suspected 03/03/2021 03/03/2021 03/03/2021 2:27 PM CDT COVID: Suspected 06/06/2021 06/06/2021 06/06/2021 5:06 PM MID LEVEL PROVIDER COVID: Suspected 06/16/2021 06/16/2021 06/16/2021 3:13 PM MID LEVEL PROVIDER COVID: Suspected 11/12/2021 11/12/2021 11/12/2021 2:09 PM CDT COVID: Suspected 11/12/2021 11/12/2021 11/12/2021 7:26 PM CDT COVID: Suspected 12/21/2021 12/21/2021 12/21/2021 11:28 AM CDT COVID: Suspected 03/08/2022 03/08/2022 03/08/2022 6:56 PM CDT COVID: Suspected 03/27/2022 03/27/2022 03/27/2022 12:39 PM MID LEVEL PROVIDER COVID: Suspected 04/07/2022 04/07/2022 04/07/2022 12:03 PM MID LEVEL PROVIDER COVID: Suspected 05/10/2022 05/10/2022 05/10/2022 1:25 PM MID LEVEL PROVIDER COVID: Suspected 05/17/2022 05/17/2022 05/17/2022 11:24 AM MID LEVEL PROVIDER COVID: Suspected 06/25/2022 06/25/2022 06/25/2022 6:33 PM MID LEVEL PROVIDER COVID: Suspected 08/20/2022 08/20/2022 08/20/2022 12:20 PM CDT COVID: Suspected 09/10/2022 09/10/2022 09/10/2022 12:44 PM CDT COVID: Suspected 09/17/2022 09/17/2022 09/17/2022 2:02 PM CDT COVID: Suspected 01/27/2023 01/27/2023 01/27/2023 5:39 PM CDT COVID: Suspected 05/07/2023 05/07/2023 05/07/2023 12:48 PM MID LEVEL PROVIDER COVID: Suspected 05/15/2023 05/15/2023 05/15/2023 12:43 PM MID LEVEL PROVIDER COVID: Suspected 02/05/2024 02/05/2024 02/05/2024 5:47 PM CDT COVID: Suspected 03/07/2024 03/07/2024 03/08/2024 3:05 AM CDT COVID: Suspected 05/13/2024 05/13/2024 05/13/2024 3:11 PM MID LEVEL PROVIDER COVID: Suspected 05/16/2024 05/16/2024 05/16/2024 3:44 PM MID LEVEL PROVIDER COVID19 05/16/2024 05/16/2024 05/26/2024 3:07 AM MID LEVEL PROVIDER COVID: Recovered Comment:Added based on recent COVID infection. 05/26/2024 05/27/2024 08/24/2024 3:05 AM C DT documented as of this encounter Care Teams Sales And Marketing Professional Relationship Specialty Start Date End Date Roberto Herzog MD [address] [place] [address] PCP - General 01/04/17 11/10/20 Star Villalobos MD [address] [place] [address] PCP - General Family Medicine 11/11/20 08/28/22 Star Villalobos MD [address] [place] [address] PCP - General Family Medicine 08/29/22 02/19/23 Star Villalobos MD [address] [place] [address] [address] [place] [address] PCP - General Family Medicine 02/20/23 10/26/24 [place] [address] [place] [address] PCP - General Family Medicine 10/27/24 Karina Ritter DO [address] [place] [address] [address] [place] [address] Consulting Physician Otolaryngology 07/16/22 Golden Michelle MD [address] [place] [address] [address] [place] [address] Consulting Physician Pulmonary Disease 07/16/22 Humberto Mueller MD [address] [place] [address] [address] [place] [address] Consulting Physician Gastroenterology 07/16/22 Josephine Santos, MÓNICA [address] [place] [address] [address] [place] [address] Nurse Practitioner Endocrinology Diabetes & Metabolism 07/16/22 Trey Rosenberg MD [address] [place] [address] [address] [place] [address] Consulting Physician Endocrinology Diabetes & Metabolism 10/12/22 Paulette Zacarias MA [address] [place] [address] [address] [place] [address] [facility] 11/27/22 11/27/22 Juanis Turcios CMA [address] [place] [address] [address] [place] [address] [facility] 01/29/23 01/29/23 Amado Devi DPM [address] [place] [address] Consulting Physician Orthotics 02/20/23 Verna Tamayo MA [address] [place] [address] [address] [place] [address] [facility] 09/17/23 09/17/23 Adi Vaughn MD [address] [facility] [address] [place] [address] Referring Physician Gynecology 12/03/23 Alivia Thomas MA [address] [place] [address] [address] [place] [address] [facility] 06/19/24 06/19/24 Nora Ocampo MD [address] [facility] [address] [place] [address] Referring Physician General Surgery 10/21/24 Marisabel Matamoros MD [address] [place] [address] Referring Physician Dermatology 12/02/24 Michelle Arce MA [address] [facility] [address] [place] [address] [facility] 12/04/24 12/04/24 Leatha Ramirez RN [address] [facility] [address] [place] [address] Sr. Operations Manager 01/29/25 [facility] 02/20/23 documented as of this encounter
--- OUTSIDE RECORDS SUMMARY | 2025-02-17 12:28 | XMS_ITS | Encounter Summary ---
Author Organization [facility] Address [address] [place] [address] Care Team Providers Care Instrument Maintenance Supervisor Name Role Phone Roberto Herzog MD Primary Care Provider [phone] Star Villalobos MD Primary Care Provider Karina Ritter DO Unavailable [phone] Golden Michelle MD Unavailable Humberto Mueller MD Unavailable [phone] Josephine Santos NP Unavailable [phone] Star Villalobos MD Primary Care Provider Trey Rosenberg MD Unavailable [phone] Paulette Zacarias MA Unavailable [phone] Juanis Turcios CMA Unavailable [phone] Star Villalobos MD Primary Care Provider Amado Devi DPM Unavailable [phone] Verna Tamayo MA Unavailable Unavailable Adi Vaughn MD Unavailable [phone] Alivia Thomas MA Unavailable Nora Ocampo MD Unavailable Star Villalobos MD Primary Care Provider Marisabel Matamoros MD Unavailable [phone] Michelle Arce MA Unavailable [phone] Leatha Ramirez RN Unavailable [phone] Encounter Details Date Type Department Care Team (Late st Contact Info) Description 02/20/2020 Telephone [facility] [address] [place] [id number] Conchis Wu, RT Social History Tobacco Use Types Packs/Day Years Used Date Smoking Tobacco: Never Smokeless Tobacco: Never Alcohol Use Standard Drinks/Week Comments No 0 (1 standard drink = 0.6 oz pur e alcohol) PHQ-2 Answer Date Recorded PHQ-2 Score 0 10/15/2019 Comments No Sex and Gender Information Value Date Recorded Sex Assigned at Not on file Legal Sex Female 8:58 AM TECHNICAL INSPECTOR Gender Identity Female 11/05/2022 9:12 PM CDT [...] COVID: Suspected 06/06/2021 06/06/2021 06/06/2021 5:06 PM TECHNICAL INSPECTOR COVID: Suspected 06/16/2021 06/16/2021 06/16/2021 3:13 PM TECHNICAL INSPECTOR COVID: Suspected 11/12/2021 11/12/2021 11/12/2021 2:09 PM CDT COVID: Suspected 11/12/2021 11/12/2021 11/12/2021 7:26 PM CDT COVID: Suspected 12/21/2021 12/21/2021 12/21/2021 11:28 AM CDT COVID: Suspected 03/08/2022 03/08/2022 03/08/2022 6:56 PM CDT COVID: Suspected 03/27/2022 03/27/2022 03/27/2022 12:39 PM TECHNICAL INSPECTOR COVID: Suspected 04/07/2022 04/07/2022 04/07/2022 12:03 PM TECHNICAL INSPECTOR COVID: Suspected 05/10/2022 05/10/2022 05/10/2022 1:25 PM TECHNICAL INSPECTOR COVID: Suspected 05/17/2022 05/17/2022 05/17/2022 11:24 AM TECHNICAL INSPECTOR COVID: Suspected 06/25/2022 06/25/2022 06/25/2022 6:33 PM TECHNICAL INSPECTOR COVID: Suspected 08/20/2022 08/20/2022 08/20/2022 12:20 PM CDT COVID: Suspected 09/10/2022 09/10/2022 09/10/2022 12:44 PM CDT COVID: Suspected 09/17/2022 09/17/2022 09/17/2022 2:02 PM CDT COVID: Suspected 01/27/2023 01/27/2023 01/27/2023 5:39 PM CDT COVID: Suspected 05/07/2023 05/07/2023 05/07/2023 12:48 PM TECHNICAL INSPECTOR COVID: Suspected 05/15/2023 05/15/2023 05/15/2023 12:43 PM TECHNICAL INSPECTOR COVID: Suspected 02/05/2024 02/05/2024 02/05/2024 5:47 PM CDT COVID: Suspected 03/07/2024 03/07/2024 03/08/2024 3:05 AM CDT COVID: Suspected 05/13/2024 05/13/2024 05/13/2024 3:11 PM TECHNICAL INSPECTOR COVID: Suspected 05/16/2024 05/16/2024 05/16/2024 3:44 PM TECHNICAL INSPECTOR COVID19 05/16/2024 05/16/2024 05/26/2024 3:07 AM TECHNICAL INSPECTOR COVID: Recovered Comment:Added based on recent COVID infection. 05/26/2024 05/27/2024 08/24/2024 3:05 AM C DT documented as of this encounter Care Teams Instrument Maintenance Supervisor Relationship Specialty Start Date End Date Roberto Herzog MD [address] [place] [address] PCP - General 01/04/17 11/10/20 Satr Villalobos MD [address] [place] [address] PCP - General Family Medicine 11/11/20 08/28/22 Star Villalobos MD [address] [place] [address] PCP - General Family Medicine 08/29/22 02/19/23 Star Villalobos MD [address] [place] [address] [address] [place] [address] PCP - General Family Medicine 02/20/23 10/26/24 Star Villalobos MD [facility] [address] [address] PCP - General Family Medicine 10/27/24 Karina Ritter DO [address] [place] [address] [address] Mejia [facility] [address] [place] [address] Consulting Physician Otolaryngology 07/16/22 Golden Michelle MD [address] [place] [address] [address] [place] [address] Consulting Physician Pulmonary Disease 07/16/22 Humberto Mueller MD [address] [place] [address] [address] [place] [address] Consulting Physician Gastroenterology 07/16/22 Josephine Santos, MÓNICA [address] [place] [address] [address] [place] [address] Nurse Practitioner Endocrinology Diabetes & Metabolism 07/16/22 Trey Rosenberg MD [address] [place] [address] [address] [place] [address] Consulting Physician Endocrinology Diabetes & Metabolism 10/12/22 Paulette Zacarias MA [address] [place] [address] [address] [place] [address] [facility] 11/27/22 11/27/22 Juanis Turcios CMA [address] [place] [address] [address] [place] [address] [facility] 01/29/23 01/29/23 Amado Devi DPM [address] [place] [address] Consulting Physician Orthotics 02/20/23 Verna Tamayo MA [address] [place] [address] [address] [place] [address] [facility] 09/17/23 09/17/23 Adi Vaughn MD [address] [facility] [address] [place] [address] Referring Physician Gynecology 12/03/23 Alivia Thomas MA [address] [place] [address] [address] [place] [address] [facility] 06/19/24 06/19/24 Nora Ocampo MD [address] [place] [address] Referring Physician General Surgery 10/21/24 Marisabel Matamoros MD [address] [place] [address] Referring Physician Dermatology 12/02/24 Michelle Arce MA [address] [facility] [address] [place] [address] [facility] 12/04/24 12/04/24 Leatha Ramirez RN [address] [facility] [address] [place] [address] Therapist Phys 01/29/25 [facility] 02/20/23 documented as of this encounter
--- OUTSIDE RECORDS SUMMARY | 2025-02-17 12:28 | XMS_ITS | Encounter Summary ---
Author Organization [facility] Address [address] [facility] [place] [address] Care Team Providers Care Chimney Mechanic Name Role Phone Roberto Herzog MD Primary Care Provider [phone] Star Villalobos MD Primary Care Provider Encounter Details Date Type Department Care Team (Late Contact Info) Description 11/26/2019 Lab Requisition [facility] [address] [facility] [place] [phone] [place] [address] [place] [address] Social History Tobacco Use Types Packs/Day Years Used Date Smoking Tobacco: Never Smokeless Tobacco: Never Alcohol Use Standard Drinks/Week Comments No 0 (1 standard drink = 0.6 oz pur e alcohol) Comments No Sex and Gender Information Value Date Recorded Sex Assigned at Not on file Legal Sex Female 7:49 AM 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 Gender Identity Not on file Sexual Orientation Not on file documented as of this encounter Plan of Treatment Upcoming Encounters Date Type Department Care Team (Late Contact Info) Description 01/07/2026 1:45 PM CDT Office Visit [facility] [address] [place] [phone] Adi Vaughn MD [address] [place] [address] documented as of this encounter Procedures Procedure Name Priority Date/Time Associated Diagnosis Comments DERMATOPATHOLOGY Routine 11/25/2019 12:0 0 AM CDT documented in this encounter Results * DERMATOPATHOLOGY (11/25/2019 12:00 AM CDT) Case Report Dermatopathology Report Case: [id number] Authorizing Provider: Paris Oconnor MD Collected: 11/25/2019 12:00 AM Ordering Location: [facility] Received: 11/26/2019 03:07 PM Pathologist: Daisha Ribeiro MD Specimen: Skin, subxiphoid 0 1:10 PM CDT DERMATOPATHOLOGY LABORATORY Final Diagnosis Specimen A. SKIN, subxiphoid: ACROCHORDON (SOFT FIBROMA, SKIN TAG) (L91.8) (see microscopic description) 0 1:10 PM CDT DERMATOPATHOLOGY LABORATORY at 1310 CDT Clinical History Skin tag vs nevus. . 0 1:10 PM CDT DERMATOPATHOLOGY LABORATORY Gross Description Specimen A: Received is one formalin filled container labeled with the patient's name and designated subxiphoid. The specimen consists of a shave biopsy measuring [id number], bisected. Jar 0. 0 1:10 PM CDT DERMATOPATHOLOGY LABORATORY Microscopic Description Specimen A. SKIN, subxiphoid: There is a gently folded epidermis surrounding a connective tissue core. 0 1:10 PM CDT DERMATOPATHOLOGY LABORATORY Disclaimer An external and internal positive and negative controls are appropriate for the histochemical, immunohistochemical and immunofluorescence stain(s) in this case (if any), except where stated explicitly. The performance characteristics of the stain(s) cited in this report were developed and its performance characteristic determined by the Dermatopathology Laboratory at [facility], directed by Dr. Deni Zimmerman. These tests need not be, and therefore are not, approved by the [place] Food and Drug Administration. The tests are used for clinical purposes. Billing Codes Specimen Charges Stain Charges 01861 1 0 1:10 PM CDT DERMATOPATHOLOGY LABORATORY Embedded Images 0 1:10 PM CDT DERMATOPATHOLOGY LABORATORY Pathology/Cytolog y TISSUE SPECIMEN FROM SKIN / Unknown 11/25/2019 11/26/2019 3:07 PM CDT Paris Oconnor MD LAB - PATHOLOGY/CYTOLOGY ORDERABLES Final Result Performing Organization Address City/State/[facility] Co de Phone Number DERMATOPATHOLOGY LABORATORY [facility] - Department of Dermatology [facility]/[address] [phone] documented in this encounter Visit Diagnoses Not on filedocumented in this encounter Care Teams Chimney Mechanic Relationship Specialty Start Date End Date [place] [address] PCP - General 11/28/17 03/21/21 [place] [address] PCP - General 03/22/21 documented as of this encounter
--- OUTSIDE RECORDS SUMMARY | 2025-02-17 12:28 | XMS_ITS | Encounter Summary ---
Author Organization [facility] Address [address] [facility] [place] [address] Care Team Providers Care Production Clerks Supervisor Name Role Phone Roberto Herzog MD Primary Care Provider [phone] Star Villalobos MD Primary Care Provider Encounter Details Date Type Department Care Team (Late st Contact Info) Description 08/21/2020 Lab Requisition [facility] [address] [facility] [place] [phone] Bhupendra Serna Jr., MD [address] [facility] [address] [place] [address] Social History Tobacco Use Types Packs/Day Years [...] of Binge Drinking Not on file 11/2020 Comments No Sex and Gender Information Value Date Recorded Sex Assigned at Not on file Legal 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 Female 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 Gender Identity Not on file Sexual Orientation Not on file documented as of this encounter Plan of Treatment Upcoming Encounters Date Type Department Care Team (Late st Contact Info) Description 01/07/2026 1:45 PM CDT Office Visit [facility] TECHNIC[facility] [address] [place] [address] Adi Vaughn MD [address] [place] [address] documented as of this encounter Procedures Procedure Name Priority Date/Time Associated Diagnosis Comments DERMATOPATHOLOGY Routine 08/19/2020 3:33 AM CDT documented in this encounter Results * DERMATOPATHOLOGY (08/19/2020 3:33 AM CDT) Case Report Dermatopathology Report Case: [id number] Authorizing Provider: Bhupendra Serna Jr., MD Collected: 08/19/2020 03:33 AM Ordering Location: [facility] Lab Received: 08/21/2020 12:19 PM Pathologist: Jenni Zimmerman MD Specimen: Skin, left lateral distal pretibial region 6:41 PM CDT DERMATOPATHOLOGY LABORATORY Final Diagnosis Specimen A. SKIN, left lateral distal pretibial region: VERRUCA VULGARIS (B07.8) OVERLYING CUTANEOUS HORN (L85.8) 6:41 PM CDT DERMATOPATHOLOGY LABORATORY at 1841 CDT Clinical History Cutaneous horn vs squamous cell carcinoma vs irritated seborrheic keratosis vs verruca vulgaris. . 6:41 PM CDT DERMATOPATHOLOGY LABORATORY Gross Description Specimen A: Received is one formalin filled container labeled with the patient's name and designated left lateral distal pretibial region. The specimen consists of a shave biopsy measuring [id number]. Jar 0. 6:41 PM CDT DERMATOPATHOLOGY LABORATORY Microscopic Description Specimen A. SKIN, left lateral distal pretibial region: There is digitated epidermal hyperplasia, hypergranulosis, vacuolated granular layer cells, and compact hyperorthokeratosis . There is a column of marked compact hyperkeratosis. 6:41 PM CDT DERMATOPATHOLOGY LABORATORY Disclaimer An external and internal positive and negative controls are appropriate for the histochemical, immunohistochemical and immunofluorescence stain(s) in this case (if any), except where stated explicitly. The performance characteristics of the stain(s) cited in this report were developed and its performance characteristic determined by the Dermatopathology Laboratory at [facility], directed by Dr. Deni Zimmerman. These tests need not be, and therefore are not, approved by the [place] Food and Drug Administration. The tests are used for clinical purposes. Billing Codes Specimen Charges Stain Charges 28829 1 1 6:41 PM CDT DERMATOPATHOLOGY LABORATORY Embedded Images 1 6:41 PM CDT DERMATOPATHOLOGY LABORATORY Pathology/Cytolo gy TISSUE SPECIMEN FROM SKIN / Unknown 08/19/2020 3:33 AM CDT 08/21/2020 12:19 PM CDT Bhupendra Serna Jr., MD LAB - PATHOLOGY/CYTOLOG Y ORDERABLES Final Result DERMATOPATHOLOGY LABORATORY [facility] Department of Dermatology [facility] Medicine [address] [place] [address], [address] [phone] documented in this encounter Visit Diagnoses Not on filedocumented in this encounter Care Teams Production Clerks Supervisor Relationship Specialty Start Date End Date [place] [phone] PCP - General 11/28/17 03/21/21 Star Villalobos MD [address] [place] [address] PCP - General 03/22/21 documented as of this encounter
--- OUTSIDE RECORDS SUMMARY | 2025-02-17 12:28 | XMS_ITS | Encounter Summary ---
Author Organization Formerly [facility] Address [address] [place] [address] Care Team Providers Care [employer]cher [employer] Name Role Phone Star Villalobos MD Primary Care Provider Karina Ritter DO Unavailable [phone] Golden Michelle MD Unavailable Humberto Mueller MD Unavailable [phone] Josephine Santos NP Unavailable [phone] Star Villalobos MD Primary Care Provider Trey Rosenberg MD Unavailable [phone] Paulette Zacarias MA Unavailable [phone] Juanis Turcios CMA Unavailable [phone] Star Villalobos MD Primary Care Provider Amado Devi DPM Unavailable [phone] Verna Tamayo MA Unavailable Unavailable Adi Vaughn MD Unavailable [phone] Alivia Thomas MA Unavailable Nora Ocampo MD Unavailable Star Villalobos MD Primary Care Provider Marisabel Matamoros MD Unavailable [phone] Michelle Arce MA Unavailable [phone] Leatha Ramirez RN Unavailable [phone] Reason for Visit * Reason Onset Date Comments Scheduling Appointments 01/31/2021 confirme d dexa Encounter Details Date Type Department Care Team (Late st Contact Info) Description 01/31/2021 Telephone [facility] [address] [place] [id number] Torrie Arshad RT Scheduling Appointments (confirmed dexa) Social History Tobacco Use Types Packs/Day Years Used Date Smoking Tobacco: Never Smokeless Tobacco: Never Alcohol Use Standard Drinks/Week Comments No 0 (1 standard drink = 0.6 oz pur e alcohol) PHQ-2 Answer Date Recorded PHQ-2 Total Score (If total score is 3 or more points, staff should administer the PHQ-9) 0 12/02/2020 Comments No Sex and Gender Information Value Date Recorded Sex Assigned at Not on file Legal Sex Female 8:58 AM CHANNEL C[employer]ACH[employer] Gender Identity Female 11/05/2022 9:12 PM CDT Sexual Orientation Straight 11/05/2022 9: 12 PM CDT documented as of this encounter Plan of Treatment Not on file documented as of this encounter Visit Diagnoses Not on filedocumented in this encounter Additional Health Concerns Infection Onset Date Last Indicated Resolved Time COVID: Suspected 03/03/2021 03/03/2021 03/03/2021 2:27 PM CDT COVID: Suspected 06/06/2021 06/06/2021 06/06/2021 5:06 PM [employer]ANNEL [employer]ER [employer] M[employer]INE COVID: Suspected 06/16/2021 06/16/2021 06/16/2021 3:13 PM CHANNEL C[employer]ER [employer]SO[employer] MACHINE COVID: Suspected 11/12/2021 11/12/2021 11/12/2021 2:09 PM CDT COVID: Suspected 11/12/2021 11/12/2021 11/12/2021 7:26 PM CDT COVID: Suspected 12/21/2021 12/21/2021 12/21/2021 11:28 AM CDT COVID: Suspected 03/08/2022 03/08/2022 03/08/2022 6:56 PM CDT COVID: Suspected 03/27/2022 03/27/2022 03/27/2022 12:39 PM CHANNEL C[employer]ER [employer]SO[employer] MACHINE COVID: Suspected 04/07/2022 04/07/2022 04/07/2022 12:03 PM CHANNEL C[employer]ER [employer]SOLE MACHINE COVID: Suspected 05/10/2022 05/10/2022 05/10/2022 1:25 PM CHANNEL CEMENTER INSOLE MACHINE COVID: Suspected 05/17/2022 05/17/2022 05/17/2022 11:24 AM CHANNEL C[employer]ER [employer]SOLE MACHINE COVID: Suspected 06/25/2022 06/25/2022 06/25/2022 6:33 PM CHANNEL C[employer]ER [employer]SOLE MACHINE COVID: Suspected 08/20/2022 08/20/2022 08/20/2022 12:20 PM CDT COVID: Suspected 09/10/2022 09/10/2022 09/10/2022 12:44 PM CDT COVID: Suspected 09/17/2022 09/17/2022 09/17/2022 2:02 PM CDT COVID: Suspected 01/27/2023 01/27/2023 01/27/2023 5:39 PM CDT COVID: Suspected 05/07/2023 05/07/2023 05/07/2023 12:48 PM CHANNEL CEMENTER INSOLE MACHINE COVID: Suspected 05/15/2023 05/15/2023 05/15/2023 12:43 PM CHANNEL CEMENTER INSOLE MACHINE COVID: Suspected 02/05/2024 02/05/2024 02/05/2024 5:47 PM CDT COVID: Suspected 03/07/2024 03/07/2024 03/08/2024 3:05 AM CDT COVID: Suspected 05/13/2024 05/13/2024 05/13/2024 3:11 PM CHANNEL C[employer]ER INSO[employer] MACHINE COVID: Suspected 05/16/2024 05/16/2024 05/16/2024 3:44 PM CHANNEL C[employer]ER INSOLE MACHINE COVID19 05/16/2024 05/16/2024 05/26/2024 3:07 AM CHANNEL C[employer]ER INSOLE MACHINE COVID: Recovered Comment:Added based on recent COVID infection. 05/26/2024 05/27/2024 08/24/2024 3:05 AM CDT documented as of this encounter Care Teams [employer] Relationship Specialty Start Date End Date Star Villalobos MD PCP - General Family Medicine 11/11/20 08/28/22 Star Villalobos MD PCP - General Family Medicine 08/29/22 02/19/23 Star Villalobos MD [address] [place] [address] [address] [place] [address] PCP - General Family Medicine 02/20/23 10/26/24 Star Villalobos MD [address] [facility] [address] [place] [address] PCP - General Family Medicine 10/27/24 Karina Ritter DO [address] [place] [address] [address] [place] [address] Consulting Physician Otolaryngology 07/16/22 Golden Michelle MD [address] [place] [address] [address] [place] [address] Consulting Physician Pulmonary Disease 07/16/22 Humberto Mueller MD [address] [place] [address] [address] [place] [address] Consulting Physician Gastroenterology 07/16/22 Josephine Santos, MÓNICA [address] [place] [address] [address] [place] [address] Nurse Practitioner Endocrinology Diabetes & Metabolism 07/16/22 Trey Rosenberg MD [address] [place] [address] [place] [address] Consulting Physician Endocrinology Diabetes & Metabolism 10/12/22 Paulette Zacarias MA [address] [place] [address] [address] [place] [address] [employer] Sh[employer] 11/27/22 11/27/22 Juanis Turcios CMA [address] [place] [address] [address] [place] [address] [employer] App[employer] Shaker 01/29/23 01/29/23 Amado Devi DPM [address] [place] [address] Consulting Physician Orthotics 02/20/23 Verna Tamayo MA [address] [place] [address] [address] [place] [address] [employer]earing Apparel Sh[employer] 09/17/23 09/17/23 Adi Vaughn MD [address] [facility] [address] [place] [address] Referring Physician Gynecology 12/03/23 Alivia Thomas MA [address] [place] [address] [address] [place] [address] [employer] Wearing Apparel Shaker 06/19/24 06/19/24 Nora Ocampo MD [address] [facility] [address] [place] [address] Referring Physician General Surgery 10/21/24 Marisabel Matamoros MD [address] [place] [address] Referring Physician Dermatology 12/02/24 Michelle Arce MA [address] [place] [address] [address] [place] [address] [employer] Wearing Apparel Shaker 12/04/24 12/04/24 Leatha Ramirez RN [address] [facility] [address] [place] [address] Emergency Management Specialist 01/29/25 [facility] 02/20/23 documented as of this encounter
== END 2025-02-17 12:25 | disposition home or self-care (01) ==
PROVIDERS: Visit Provider Otolaryngology
DX: H90.3 Sensorineural hearing loss, bilateral (principal); H93.13 Tinnitus, bilateral
CPT/HCPCS: 92557; 92567